=== PATIENT | male | born 1960 | race African-American/Black ===

== ENCOUNTER 2016-09-16 12:02 | Inpatient (IN) | payer MEDICARE, OTHER ==
[~2016-09-16] VITALS: Ht 180.3 cm; Wt 75.4 kg
[2016-09-16] MEDS ORDERED: IV NORMAL SALINE 1000ML BAG 1,000 ML IV SCH (12:17)
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
[2016-09-16] MEDS ORDERED: 0.9 % SODIUM CHLORIDE 10 ML DISP.SYRIN. IV PRN (12:30)
[2016-09-16 12:45] LABS: BASO # 0.1 x10^3/uL (0.0-0.2); BASO % 1 % (0-3); EOS % 1 % (0-3); HEMATOCRIT 23.1 % (39.0-53.0); HEMOGLOBIN 7.5 g/dL (13.0-17.5); LYMPH # 0.9 x10^3/uL (1.0-4.8); LYMPH % 8 % (24-48); MEAN CORPUSCULAR HEMOGLOBIN 26 pg (25-35); MEAN CORPUSCULAR HGB CONC 32 g/dL (31-37); MEAN CORPUSCULAR VOLUME 79 fL (79-100); MONO % 17 % (0-9); NEUT % 74 % (31-73); PLATELET COUNT 125 x10^3/uL (140-400); RED BLOOD COUNT 2.92 x10^6/uL (4.30-5.70); RED CELL DISTRIBUTION WIDTH 22.1 % (11.5-14.5); WHITE BLOOD COUNT 11.7 x10^3/uL (4.0-11.0)
[2016-09-16 13:00] LABS: CALCIUM 7.5 mg/dL (8.5-10.1); CREATININE 1.6 mg/dL (0.7-1.3); GFR 54.4
--- NOTE | 2016-09-16 13:00 | RAD ---
Indication generalized weakness for a week. Noncontrast images of the head were obtained. Note is made of a previous examination 07/31/2015. The calvarium appears unremarkable. The visualized paranasal sinuses appear normal. There is no subdural or epidural hematoma. There is some physiologic calcification of the basal ganglia. There is mild atrophy. No mass or midline shift is seen. No acute finding is apparent. IMPRESSION: Chronic changes. No acute finding seen PQRS Compliance Statement: One or more of the following individualized dose reduction techniques were utilized for this examination: 1. Automated exposure control 2. Adjustment of the mA and/or kV according to patient size 3. Use of iterative reconstruction technique
--- NOTE | 2016-09-16 13:03 | RAD ---
Indication weakness. Jaundice. A single view of the chest was obtained and is compared to a study 07/31/2015. The heart and pulmonary vessels appear normal. The lungs appear clear. There is no pleural fluid or pneumothorax. The level of inspiratory for is not quite as good as on the previous exam. A significant change compared to the prior study is not seen. IMPRESSION: No acute or focal process. No significant change
[2016-09-16 13:11] LABS: ALBUMIN 1.7 g/dL (3.4-5.0); MAGNESIUM 2.1 mg/dL (1.8-2.4)
[2016-09-16 13:13] LABS: % EOS 1 % (0-5); NUCLEATED RBC 49; PLT ESTIMATE ADEQUATE (ADEQUATE)
[2016-09-16 13:14] LABS: ANISOCYTOSIS PRESENT; CKMB MASS < 0.5 ng/mL (0.0-3.6); CREATINE KINASE 42 U/L (39-308); TARGET CELLS MANY
[2016-09-16 13:44] LABS: TOTAL PROTEIN 6.8 g/dL (6.4-8.2)
[2016-09-16 13:48] LABS: DIRECT BILIRUBIN 27.3 mg/dL (0.0-0.2); TOTAL BILIRUBIN 36.7 mg/dL (0.2-1.0)
--- NOTE | 2016-09-16 14:17 | EKG ---
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
[2016-09-16 14:41] LABS: BILIRUBIN,URINE LARGE (NEG); GLUCOSE,URINE NEGATIVE (NEG); PROTEIN,URINE NEGATIVE (NEG-TRACE)
[2016-09-16 15:28] LABS: BACTERIA,URINE FEW /HPF (0-FEW); SQUAMOUS EPITHELIAL CELL,UR MOD /LPF
[2016-09-16] MEDS ORDERED: ONDANSETRON PF 4 MG/2 ML VIAL. IV PRN ×2 (15:45→16:15)
[2016-09-16] MEDS ORDERED: hydrALAZINE 20 MG/ML VIAL. IVP PRN (16:15)
[2016-09-16] MEDS ORDERED: DOCUSATE SODIUM 100 MG CAPSULE. PO PRN (16:15)
[2016-09-16] MEDS ORDERED: ACETAMINOPHEN 325 MG TABLET. PO PRN (16:15)
[2016-09-16] MEDS ORDERED: MORPHINE SULFATE 2 MG/ML DISP.SYRIN. IV PRN (16:15)
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
[2016-09-16 16:32] LABS: BARBITURATES NEG (NEG); BENZODIAZEPINES NEG (NEG); CANNABINOIDS NEG (NEG); COCAINE NEG (NEG); METHADONE NEG (NEG); OPIATES NEG (NEG); PHENCYCLIDINE NEG (NEG)
[2016-09-16 16:37] LABS: INR 2.8 (0.8-1.1); PROTHROMBIN TIME PATIENT 27.8 SEC (11.7-14.0)
[2016-09-16] MEDS: IV NORMAL SALINE 1000ML BAG 1,000 ML IV SCH (16:47)
--- NOTE | 2016-09-16 16:56 | RAD ---
INDICATION: Elevated bilirubin COMPARISON: 07/31/2015 TECHNIQUE: Grayscale and color ultrasound images obtained through the abdomen. FINDINGS: Aorta/IVC: Poorly visualized Pancreas: Visualized portions unremarkable. Liver: Echogenic with large portions of the liver not visualized on this exam. Gallbladder: Removed Common Bile Duct: 6 mm Right Kidney: No hydronephrosis. Left Kidney: No hydronephrosis. Spleen: 15.8 cm Ascites is seen. IMPRESSION: The liver is echogenic which can be seen with fatty infiltration. Large portions of the liver is not evaluated on this exam secondary to poor beam penetration. Small amount of ascites and splenomegaly.
[2016-09-16 20:08] VITALS: BP 89/55
[2016-09-16] MEDS ORDERED: ENOXAPARIN 40 MG/0.4 ML SYRINGE. SQ SCH (21:00)
[2016-09-16 23:00] VITALS: BP 85/56
[2016-09-16 23:22] VITALS: BP 103/66
[2016-09-17] VITALS (7 sets, daily range): BP systolic 85–96; BP diastolic 52–64
[2016-09-17] MEDS: IV NORMAL SALINE 1000ML BAG 1,000 ML IV SCH ×2 (01:50→10:38)
--- NOTE | 2016-09-17 03:24 | ACF ---
Admission Forms Criteria LIVER DISEASE COMPLICATIONS Clinical Indications for Admission to Inpatient Care (Place 'X' for any and all applicable criteria): Admission is indicated for patient with ANY ONE of the following(1)(2)(3)(4): [ ]I. Inpatient admission required rather than observation care because of ANY ONE of the following: [ ]a) Hemodynamic instability that is severe or persistent [ ]b) Severe electrolyte abnormalities requiring inpatient care [ ]c) Respiratory compromise that is severe or persistent [ ]d) Coagulation abnormal that is severe or persistent [ ]e) Severe pain requiring acute inpatient management [ ]f) Renal insufficiency that is severe or worsening [ ]g) Metabolic abnormalities (e.g., vomiting, hypoglycemia, acidosis) that are severe or persistent [ ]h) Hypovolemia or hypervolemia that is severe or persistent [ ]i) Absent bowel sounds with complete ileus(2) [ ]j) Signs of intestinal obstruction or peritonitis[A] [ ]k) IV fluid to replace significant ongoing losses (>3 L/m2 per day) [ ]l) Continuous IV infusion of anticoagulation, platelet inhibitor, vasoactive, or antiarrhythmic medication [ ]m) Percutaneous or open drainage (e.g., abscess, biliary tract) procedures [ ]n) Parenteral nutrition regimen that must be implemented on inpatient basis [ ]o) Other condition treatment or monitoring requiring inpatient admission [ ]II. Infected hepatic hydrothorax (eg, empyema) [ ]III. Hepatorenal syndrome (eg, elevated. creatinine with adequate volume status and negative evaluation for other cause)(8) [ ]IV. Spontaneous bacterial peritonitis [ ]V. Suspected infected ascites as indicated by ANY ONE of the following: [ ]a) Temp >100 degrees F (37.8 C ) [ ]b) High WBC count [ ]c) Abdominal pain or tenderness not relieved by paracentesis [ ]. New-onset or worsening hepatic encephalopathy(7) [ ]VII. Suspected fulminant hepatic failure (e.g., acute coagulopathy with hepatic encephalopathy or acute elevation of hepatic transaminases to more than 15 times baseline)(4) [X]VIII. Acute hepatitis (e.g., ALT and AST at least 3 times baseline) with coagulopathy or severe jaundice as indicated by ANY ONE of the following(9)(10): [X]a) Bilirubin >20 mg/dL (342 moles/L)(11) [ ]b) Acute elevation of PT to >50% above normal or INR >1.5 [ ] IX. Treatment of injury from hepatotoxin (e.g., acetaminophen) that requires inpatient monitoring [ ] X. Acute fatty liver of Extended stay beyond goal length of stay may be needed for(3)(7): [ ]a) Hepatorenal syndrome [ ]b) Severe or persistent hepatic encephalopathy [ ]c) Renal failure due to other causes associated with cirrhosis (e.g., hypovolemia) [ ]d) Severe or persistent coagulation abnormalities [ ]e) Refractory ascites, volume, or electrolyte abnormality [ ]f) Severe or persistent gastroesophageal bleeding [ ]g) Severe infectious or hepatotoxin-induced hepatitis (eg, acetaminophen) [ ]h) Hemodynamic instability that is severe or persistent The original [facility] content created by [facility] [employer] has been revised. The portions of the content which have been revised are identified through the use of italic text or in bold, and [facility] has neither reviewed nor approved the modified material. All other unmodified content is copyright [facility] [employer]. Please see references footnoted in the original [facility] edition 2016 Admission Criteria Met?: Yes SARAH PRICE Sep 17, 2016 03:24
[2016-09-17 06:05] LABS: BASO # 0.1 x10^3/uL (0.0-0.2); BASO % 1 % (0-3); EOS % 1 % (0-3); LYMPH # 0.5 x10^3/uL (1.0-4.8); LYMPH % 6 % (24-48); MEAN CORPUSCULAR HEMOGLOBIN 26 pg (25-35); MEAN CORPUSCULAR HGB CONC 33 g/dL (31-37); MEAN CORPUSCULAR VOLUME 79 fL (79-100); MONO % 18 % (0-9); NEUT % 74 % (31-73); PLATELET COUNT 100 x10^3/uL (140-400); RED BLOOD COUNT 2.65 x10^6/uL (4.30-5.70); RED CELL DISTRIBUTION WIDTH 22.1 % (11.5-14.5)
[2016-09-17 06:14] LABS: HEMATOCRIT 20.9 % (39.0-53.0)
[2016-09-17 06:22] LABS: CREATININE 1.6 mg/dL (0.7-1.3); GFR 54.4; POTASSIUM 3.1 mmol/L (3.5-5.1)
--- NOTE | 2016-09-17 09:17 | PDOC2 ---
GI CONSULT Reason For Consult: Elevated bilirubin HPI: HPI: 55 y/o male previously evaluated by Dr. Brice. H/o heavy alcohol use, about 1 pint of gin daily. In 07/2015, Hepatitis panel was negative, iron was normal, ceruloplasmin was low, and hemochromatosis was negative. He presents now w/ similar symptoms including weakness, tingling in his legs, and falling. Again reports occasional n/v and loose stools. He says his mom might have seen red blood in his stool once. Says eating okay but might have lost some weight. Denies abd pain or bloating, also dysphagia. Labs significant for bili 36.7, direct 27.3, AST 125, ALT 36, Alk Phos 126, INR 2.8, Hgb 7 (from 7.5), plt 100, Cr 1.6, Na 129, normal ammonia, elevated lactic acid (now normal). Abd US again demonstrates fatty liver and splenomegaly, small amount of ascites also noted. PMH: PMH: alcoholism, cholecystectomy, bipolar disorder, neuropathy FH: Family History: No pertinent hx Social History: ALCOHOL: heavy (1 pint of gin daily) Drugs: None ROS: GEN: +weak HEENT: Denies blurred vision, sore throat CV: Denies chest pain RESP: Denies shortness of air, cough GI: Per HPI : Denies hematuria, dysuria ENDO: +weight loss NEURO: +feet/leg tingling +dizziness MSK: +weak +falls SKIN: Denies pruritus Vitals: Vitals: Vital Signs Date Time Temp Pulse Resp B/P (MAP) Pulse Ox O2 Delivery O2 Flow Rate FiO2 09/17/16 06:24 97 96/64 (75) 09/17/16 03:03 98.1 20 100 Room Air 98.1 Labs: Labs: Laboratory Tests Test 09/16/16 12:30 09/16/16 14:27 09/17/16 05:40 White Blood Count 11.7 x10^3/uL (4.0-11.0) 9.0 x10^3/uL (4.0-11.0) Red Blood Count 2.92 x10^6/uL (4.30-5.70) 2.65 x10^6/uL (4.30-5.70) Hemoglobin 7.5 g/dL (13.0-17.5) 7.0 g/dL (13.0-17.5) Hematocrit 23.1 % (39.0-53.0) 20.9 % (39.0-53.0) Mean Corpuscular Volume 79 fL (79-100) 79 fL (79-100) Mean Corpuscular Hemoglobin 26 pg (25-35) 26 pg (25-35) Mean Corpuscular Hemoglobin Concent 32 g/dL (31-37) 33 g/dL (31-37) Red Cell Distribution Width 22.1 % (11.5-14.5) 22.1 % (11.5-14.5) Platelet Count 125 x10^3/uL (140-400) 100 x10^3/uL (140-400) Neutrophils (%) (Auto) 74 % (31-73) 74 % (31-73) Lymphocytes (%) (Auto) 8 % (24-48) 6 % (24-48) Monocytes (%) (Auto) 17 % (0-9) 18 % (0-9) Eosinophils (%) (Auto) 1 % (0-3) 1 % (0-3) Basophils (%) (Auto) 1 % (0-3) 1 % (0-3) Neutrophils # (Auto) 8.6 x10^3uL (1.8-7.7) 6.7 x10^3uL (1.8-7.7) Lymphocytes # (Auto) 0.9 x10^3/uL (1.0-4.8) 0.5 x10^3/uL (1.0-4.8) Monocytes # (Auto) 2.0 x10^3/uL (0.0-1.1) 1.6 x10^3/uL (0.0-1.1) Eosinophils # (Auto) 0.1 x10^3/uL (0.0-0.7) 0.1 x10^3/uL (0.0-0.7) Basophils # (Auto) 0.1 x10^3/uL (0.0-0.2) 0.1 x10^3/uL (0.0-0.2) Segmented Neutrophils % 72 % (35-66) Band Neutrophils % 3 % (0-9) Lymphocytes % 12 % (24-48) Monocytes % 12 % (0-10) Eosinophils % 1 % (0-5) Nucleated Red Blood Cells 49 Platelet Estimate Adequate (ADEQUATE) Anisocytosis Present Macrocytosis Present Target Cells Many Prothrombin Time 27.8 SEC (11.7-14.0) Prothromb Time International Ratio 2.8 (0.8-1.1) Sodium Level 129 mmol/L (136-145) 133 mmol/L (136-145) Potassium Level 4.0 mmol/L (3.5-5.1) 3.1 mmol/L (3.5-5.1) Chloride Level 89 mmol/L (98-107) 95 mmol/L (98-107) Carbon Dioxide Level 30 mmol/L (21-32) 26 mmol/L (21-32) Anion Gap 10 (6-14) 12 (6-14) Blood Urea Nitrogen 21 mg/dL (8-26) 25 mg/dL (8-26) Creatinine 1.6 mg/dL (0.7-1.3) 1.6 mg/dL (0.7-1.3) Estimated GFR (Cockcroft-Gault) 54.4 54.4 Glucose Level 87 mg/dL (70-99) 78 mg/dL (70-99) Lactic Acid Level 2.5 mmol/L (0.4-2.0) 1.9 mmol/L (0.4-2.0) Calcium Level 7.5 mg/dL (8.5-10.1) 7.0 mg/dL (8.5-10.1) Magnesium Level 2.1 mg/dL (1.8-2.4) Total Bilirubin 36.7 mg/dL (0.2-1.0) Direct Bilirubin 27.3 mg/dL (0.0-0.2) Aspartate Amino Transf (AST/SGOT) 125 U/L (15-37) Alanine Aminotransferase (ALT/SGPT) 36 U/L (16-63) Alkaline Phosphatase 126 U/L (46-116) Ammonia 21 mcmol/L (11-34) Creatine Kinase 42 U/L (39-308) Creatine Kinase MB (Mass) < 0.5 ng/mL (0.0-3.6) Creatine Kinase MB Relative Index % (0-4) Troponin I Quantitative < 0.017 ng/mL (0.000-0.055) [id number]-Type Natriuretic Peptide 1592 pg/mL (0-124) Total Protein 6.8 g/dL (6.4-8.2) Albumin 1.7 g/dL (3.4-5.0) Lipase 140 U/L (73-393) Thyroid Stimulating Hormone (TSH) 0.936 uIU/mL (0.358-3.74) Ethyl Alcohol Level < 10 mg/dL (0-10) Urine Collection Type U cath Urine Color Izzy Urine Clarity Cloudy Urine pH 6.0 Urine Specific [place] 1.015 Urine Protein Negative mg/dL (NEG-TRACE) Urine Glucose (UA) Negative mg/dL (NEG) Urine Ketones (Stick) Negative mg/dL (NEG) Urine Blood Negative (NEG) Urine Nitrite (NEG) Urine Bilirubin Large (NEG) Urine Urobilinogen Dipstick 1.0 mg/dL (0.2 mg/dL) Urine Leukocyte Esterase (NEG) Urine RBC 11-20 /HPF (0-2) Urine WBC 1-4 /HPF (0-4) Urine Squamous Epithelial Cells Mod /LPF Urine Bacteria Few /HPF (0-FEW) Urine Mucus Slight /LPF Urine Opiates Screen Neg (NEG) Urine Methadone Screen Neg (NEG) Urine Barbiturates Neg (NEG) Urine Phencyclidine Screen Neg (NEG) Urine Amphetamine/Methamphetamine Neg (NEG) Urine Benzodiazepines Screen Neg (NEG) Urine Cocaine Screen Neg (NEG) Urine Cannabinoids Screen Neg (NEG) Urine Ethyl Alcohol Neg (NEG) Allergies: Coded Allergies: No Known Drug Allergies (Unverified , 07/31/15) Medications: Current Medications Medications (Trade) Dose Ordered Sig/Elizabeth Route PRN Reason Start Time Stop Time Status Last Admin Dose Admin Sodium Chloride 1,000 ml @ 1,000 mls/hr Q1H IV 09/16/16 12:17 09/16/16 13:16 DC 09/16/16 12:59 Sodium Chloride (Normal Saline Flush) 10 ml QSHIFT PRN IV AFTER MEDS AND BLOOD DRAWS 09/16/16 12:30 09/16/16 13:00 Sodium Chloride 1,000 ml @ 120 mls/hr Q8H20M IV 09/16/16 15:40 09/17/16 15:39 09/17/16 01:50 Imaging: Imaging: Head CT IMPRESSION: Chronic changes. No acute finding seen. CXR IMPRESSION: No acute or focal process. No significant change. Abd US IMPRESSION: The liver is echogenic which can be seen with fatty infiltration. Large portions of the liver is not evaluated on this exam secondary to poor beam penetration. Small amount of ascites and splenomegaly. PE: GEN: NAD HEENT: +sclera icteric LUNGS: diminished anteriorly HEART: tachycardic ABD: BS+, some distention/ascites, non-tender EXTREMITY: No edema SKIN: +jaundice NEURO/PSYCH: A & O 3, mumbles A/P: A/P: Weakness, falls, LE neuropathy Hyperbilirubinemia -in setting of alcoholism -previous workup: Hepatitis panel negative, iron normal, ceruloplasmin low, hemochromatosis negative -US: fatty liver, splenomegaly, small ascites -s/p cholecystectomy Alcoholism Normocytic anemia, thrombocytopenia, coagulopathy -- Likely related to alcohol, but will recheck ceruloplasmin and also serum copper. [place] HORVATH Sep 17, 2016 09:17
[2016-09-17] MEDS: traMADol 50 MG TABLET PO PRN (10:41)
--- NOTE | 2016-09-17 12:52 | PDOC ---
PROGRESS NOTES Chief Complaint Chief Complaint Generalized weakness ASSESSMENT AND PLAN: 1. FTT: 2/2 EtOH abuse. OT/PT for rehab potential (doubt..) 2. EtOH abuse: last drink 4 days ago. watch for W/D sx. banana bag 4. EtOH cirrhosis: appreciate GI service input; previously evaluated for same 1 year ago. 5. Hypotension: chronic stable. trial of florinef. decrease IVF, will third- space only 6. Thrombocytopenia: 2/2 EtOH 7. Anemia: microcytic; previous iron labs c/w severe inflammation; cirrhosis 8. Leukocytosis: reactive, improving 9. Hypoalbuminemia: severe. 2/2 liver dz and malnutrition. supplements 10. CKD3: creat at baseline 11. Hyponatremia: chronic (at least since 07/2015). currently at baseline. 12. ascites: massive distension. VIR to tap in AM 13. Bipolar affective disorder (BAD): continue home meds 14. Tobaccoism: cessation counseled 15. Prophylaxis: mechanical only given bleeding risk Condition: guarded Prognosis: poor History of Present Illness History of Present Illness feels "soso". appetite minimal, very weak Vitals Vitals Vital Signs Date Time Temp Pulse Resp B/P (MAP) Pulse Ox O2 Delivery O2 Flow Rate FiO2 09/17/16 11:41 18 Room Air 09/17/16 10:30 97.5 87 90/57 (68) 95 97.5 Physical Exam General: Alert, Cooperative, No acute distress Heart: Regular rate Lungs: Clear Abdomen: Normal bowel sounds, Other (massive distension) Labs LABS Laboratory Tests Test 09/16/16 14:27 09/17/16 05:40 Urine Collection Type U cath Urine Color Izzy Urine Clarity Cloudy Urine pH 6.0 Urine Specific [place] 1.015 Urine Protein Negative mg/dL (NEG-TRACE) Urine Glucose (UA) Negative mg/dL (NEG) Urine Ketones (Stick) Negative mg/dL (NEG) Urine Blood Negative (NEG) Urine Nitrite (NEG) Urine Bilirubin Large (NEG) Urine Urobilinogen Dipstick 1.0 mg/dL (0.2 mg/dL) Urine Leukocyte Esterase (NEG) Urine RBC 11-20 /HPF (0-2) Urine WBC 1-4 /HPF (0-4) Urine Squamous Epithelial Cells Mod /LPF Urine Bacteria Few /HPF (0-FEW) Urine Mucus Slight /LPF Urine Opiates Screen Neg (NEG) Urine Methadone Screen Neg (NEG) Urine Barbiturates Neg (NEG) Urine Phencyclidine Screen Neg (NEG) Urine Amphetamine/Methamphetamine Neg (NEG) Urine Benzodiazepines Screen Neg (NEG) Urine Cocaine Screen Neg (NEG) Urine Cannabinoids Screen Neg (NEG) Urine Ethyl Alcohol Neg (NEG) White Blood Count 9.0 x10^3/uL (4.0-11.0) Red Blood Count 2.65 x10^6/uL (4.30-5.70) Hemoglobin 7.0 g/dL (13.0-17.5) Hematocrit 20.9 % (39.0-53.0) Mean Corpuscular Volume 79 fL (79-100) Mean Corpuscular Hemoglobin 26 pg (25-35) Mean Corpuscular Hemoglobin Concent 33 g/dL (31-37) Red Cell Distribution Width 22.1 % (11.5-14.5) Platelet Count 100 x10^3/uL (140-400) Neutrophils (%) (Auto) 74 % (31-73) Lymphocytes (%) (Auto) 6 % (24-48) Monocytes (%) (Auto) 18 % (0-9) Eosinophils (%) (Auto) 1 % (0-3) Basophils (%) (Auto) 1 % (0-3) Neutrophils # (Auto) 6.7 x10^3uL (1.8-7.7) Lymphocytes # (Auto) 0.5 x10^3/uL (1.0-4.8) Monocytes # (Auto) 1.6 x10^3/uL (0.0-1.1) Eosinophils # (Auto) 0.1 x10^3/uL (0.0-0.7) Basophils # (Auto) 0.1 x10^3/uL (0.0-0.2) Sodium Level 133 mmol/L (136-145) Potassium Level 3.1 mmol/L (3.5-5.1) Chloride Level 95 mmol/L (98-107) Carbon Dioxide Level 26 mmol/L (21-32) Anion Gap 12 (6-14) Blood Urea Nitrogen 25 mg/dL (8-26) Creatinine 1.6 mg/dL (0.7-1.3) Estimated GFR (Cockcroft-Gault) 54.4 Glucose Level 78 mg/dL (70-99) Lactic Acid Level 1.9 mmol/L (0.4-2.0) Calcium Level 7.0 mg/dL (8.5-10.1) JUANIS RUIZ MD Sep 17, 2016 12:52
[2016-09-17] MEDS: MULTIVIT INFUSN,ADULT 4,VIT K 10 ML, THIAMINE 100 MG, FOLIC ACID 1 MG in IV NORMAL SALI... IV SCH (14:04)
[2016-09-17] MEDS: PHYTONADIONE (VIT K1) 5 MG TABLET PO SCH (18:12)
[2016-09-17] MEDS: FLUDROCORTISONE 0.1 MG TABLET PO SCH (20:49)
[2016-09-18] VITALS (14 sets, daily range): BP systolic 73–93; BP diastolic 46–64
[2016-09-18 05:15] LABS: BASO # 0.1 x10^3/uL (0.0-0.2); BASO % 1 % (0-3); EOS % 1 % (0-3); LYMPH # 0.6 x10^3/uL (1.0-4.8); LYMPH % 7 % (24-48); MEAN CORPUSCULAR HEMOGLOBIN 27 pg (25-35); MEAN CORPUSCULAR HGB CONC 34 g/dL (31-37); MEAN CORPUSCULAR VOLUME 78 fL (79-100); MONO % 19 % (0-9); NEUT % 73 % (31-73); PLATELET COUNT 95 x10^3/uL (140-400); RED BLOOD COUNT 2.27 x10^6/uL (4.30-5.70); WHITE BLOOD COUNT 8.9 x10^3/uL (4.0-11.0)
[2016-09-18 05:18] LABS: HEMATOCRIT 17.6 % (39.0-53.0)
[2016-09-18 05:33] LABS: INR 3.3 (0.8-1.1); PROTHROMBIN TIME PATIENT 31.8 SEC (11.7-14.0)
[2016-09-18 05:58] LABS: ALBUMIN 1.3 g/dL (3.4-5.0)
[2016-09-18 06:18] LABS: ALBUMIN/GLOBULIN RATIO 0.3 (1.0-1.7); TOTAL PROTEIN 5.5 g/dL (6.4-8.2)
[2016-09-18 06:40] LABS: TOTAL BILIRUBIN 33.2 mg/dL (0.2-1.0)
[2016-09-18 06:42] LABS: POTASSIUM 2.8 mmol/L (3.5-5.1)
[2016-09-18] MEDS ORDERED: POTASSIUM CHLORIDE 20 MEQ TABLET.ER. PO ONE ×2 (07:00→12:00)
[2016-09-18] MEDS: FLUDROCORTISONE 0.1 MG TABLET PO SCH ×2 (08:34→21:00)
[2016-09-18] MEDS: PHYTONADIONE (VIT K1) 5 MG TABLET PO SCH (08:34)
--- NOTE | 2016-09-18 11:48 | PDOC ---
Subjective: Subjective: Not much history from pt or friend/family. "Doing alright." Objective: Objective: D/w RN - not eating/drinking, paracentesis ordered by primary yesterday, not to be done until INR better (rescheduled for 09/21). Some hypotension, note orders for vit K PO. Transfusing. Vital Signs: Vital Signs Date Time Temp Pulse Resp B/P (MAP) Pulse Ox O2 Delivery O2 Flow Rate FiO2 09/18/16 10:45 98.4 90 18 74/50 98.4 09/18/16 08:00 Room Air 09/18/16 07:45 96 Labs: Laboratory Tests Test 09/18/16 04:55 White Blood Count 8.9 x10^3/uL Red Blood Count 2.27 x10^6/uL Hemoglobin 6.0 g/dL Hematocrit 17.6 % Mean Corpuscular Volume 78 fL Mean Corpuscular Hemoglobin 27 pg Mean Corpuscular Hemoglobin Concent 34 g/dL Red Cell Distribution Width 22.0 % Platelet Count 95 x10^3/uL Neutrophils (%) (Auto) 73 % Lymphocytes (%) (Auto) 7 % Monocytes (%) (Auto) 19 % Eosinophils (%) (Auto) 1 % Basophils (%) (Auto) 1 % Neutrophils # (Auto) 6.5 x10^3uL Lymphocytes # (Auto) 0.6 x10^3/uL Monocytes # (Auto) 1.7 x10^3/uL Eosinophils # (Auto) 0.1 x10^3/uL Basophils # (Auto) 0.1 x10^3/uL Prothrombin Time 31.8 SEC Prothromb Time International Ratio 3.3 Sodium Level 128 mmol/L Potassium Level 2.8 mmol/L Chloride Level 94 mmol/L Carbon Dioxide Level 23 mmol/L Anion Gap 11 Blood Urea Nitrogen 27 mg/dL Creatinine 2.0 mg/dL Estimated GFR (Cockcroft-Gault) 42.0 BUN/Creatinine Ratio 14 Glucose Level 78 mg/dL Calcium Level 7.0 mg/dL Total Bilirubin 33.2 mg/dL Aspartate Amino Transf (AST/SGOT) 99 U/L Alanine Aminotransferase (ALT/SGPT) 27 U/L Alkaline Phosphatase 111 U/L Total Protein 5.5 g/dL Albumin 1.3 g/dL Albumin/Globulin Ratio 0.3 PE: GEN: NAD, has a box of fried chicken and biscuits in front of him HEENT: +sclera icteric ABD: some distention SKIN: +jaundice NEURO/PSYCH: awake/alert, doesn't say much A/P: Hyperbilirubinemia, alcoholism -previous admission: Hepatitis panel negative, iron normal, ceruloplasmin low, hemochromatosis negative -this admission: copper and ceruloplasmin pending -US: fatty liver, splenomegaly, small ascites, (s/p cholecystectomy) Anemia, thrombocytopenia, coagulopathy - worse Hypokalemia, hyponatremia, hypoalbuminemia, CKD -- ?SQ vit K Will review w/ Dr. Brice. Patient seen/examined. Did not respond to verbal or tactile stimuli. NOT hyperreflexic, so unclear PSE. Wernicke's? Ceruloplasmin again low; atypical as usually elevated in other liver diseases. Copper pending. Will get urinary copper. More thiamine? Given marked cholestasis, po vit. K may not work. Try SQ. [place] HORVATH Sep 18, 2016 11:48 SUDHAKAR BRICE MD Sep 18, 2016 15:33
--- NOTE | 2016-09-18 12:28 | PDOC ---
PROGRESS NOTES Chief Complaint Chief Complaint Generalized weakness, debility, hepatic failure ASSESSMENT AND PLAN: 1. FTT: 2/2 EtOH abuse. 2. EtOH abuse: last drink 4 days ago. watch for W/D sx. banana bag 4. EtOH cirrhosis: appreciate GI service input; previously evaluated for same 1 year ago. 5. Hypotension: chronic stable. trial of florinef. decrease IVF, will third- space only 6. Thrombocytopenia: 2/2 EtOH 7. Anemia: microcytic; previous iron labs c/w severe inflammation; cirrhosis 8. Leukocytosis: reactive, improving 9. Hypoalbuminemia: severe. 2/2 liver dz and malnutrition. supplements 10. CKD3: creat at baseline 11. Hyponatremia: chronic (at least since 07/2015). currently at baseline. 12. ascites: massive distension. VIR to tap in AM 13. Bipolar affective disorder (BAD): continue home meds 14. Tobaccoism: cessation counseled 15. Prophylaxis: mechanical only given bleeding risk Condition: guarded Prognosis: poor History of Present Illness History of Present Illness appetite minimal, very weak no sign of withdrawl, boo had drinks yesterday AM I talked about 6 month mortality. then calculated his MELD score at 40. 3 month mortality is 71% will consider hospice, he thinks he can stop drinking, reports drinking beer and liquor daily, "all day" for the past 30 years. His friend "mother of his child" reports she left him for this behavior 30 years ago, and he has drank more than heavily for that time Vitals Vitals Vital Signs Date Time Temp Pulse Resp B/P (MAP) Pulse Ox O2 Delivery O2 Flow Rate FiO2 09/18/16 11:45 98.4 87 18 81/55 98.4 09/18/16 08:00 Room Air 09/18/16 07:45 96 Physical Exam Physical Exam no nystagmus, no asterixis marked scleral icterus, jaundice of under tongue General: Alert, Oriented X3, Cooperative, No acute distress Heart: Regular rate Lungs: Clear Abdomen: Normal bowel sounds, Other (massive distension) Extremities: No clubbing Skin: No rashes Labs LABS Laboratory Tests Test 09/18/16 04:55 White Blood Count 8.9 x10^3/uL (4.0-11.0) Red Blood Count 2.27 x10^6/uL (4.30-5.70) Hemoglobin 6.0 g/dL (13.0-17.5) Hematocrit 17.6 % (39.0-53.0) Mean Corpuscular Volume 78 fL (79-100) Mean Corpuscular Hemoglobin 27 pg (25-35) Mean Corpuscular Hemoglobin Concent 34 g/dL (31-37) Red Cell Distribution Width 22.0 % (11.5-14.5) Platelet Count 95 x10^3/uL (140-400) Neutrophils (%) (Auto) 73 % (31-73) Lymphocytes (%) (Auto) 7 % (24-48) Monocytes (%) (Auto) 19 % (0-9) Eosinophils (%) (Auto) 1 % (0-3) Basophils (%) (Auto) 1 % (0-3) Neutrophils # (Auto) 6.5 x10^3uL (1.8-7.7) Lymphocytes # (Auto) 0.6 x10^3/uL (1.0-4.8) Monocytes # (Auto) 1.7 x10^3/uL (0.0-1.1) Eosinophils # (Auto) 0.1 x10^3/uL (0.0-0.7) Basophils # (Auto) 0.1 x10^3/uL (0.0-0.2) Prothrombin Time 31.8 SEC (11.7-14.0) Prothromb Time International Ratio 3.3 (0.8-1.1) Sodium Level 128 mmol/L (136-145) Potassium Level 2.8 mmol/L (3.5-5.1) Chloride Level 94 mmol/L (98-107) Carbon Dioxide Level 23 mmol/L (21-32) Anion Gap 11 (6-14) Blood Urea Nitrogen 27 mg/dL (8-26) Creatinine 2.0 mg/dL (0.7-1.3) Estimated GFR (Cockcroft-Gault) 42.0 BUN/Creatinine Ratio 14 (6-20) Glucose Level 78 mg/dL (70-99) Calcium Level 7.0 mg/dL (8.5-10.1) Total Bilirubin 33.2 mg/dL (0.2-1.0) Aspartate Amino Transf (AST/SGOT) 99 U/L (15-37) Alanine Aminotransferase (ALT/SGPT) 27 U/L (16-63) Alkaline Phosphatase 111 U/L (46-116) Total Protein 5.5 g/dL (6.4-8.2) Albumin 1.3 g/dL (3.4-5.0) Albumin/Globulin Ratio 0.3 (1.0-1.7) Review of Systems Review of Systems poor appetite, weak hair is brittle, he appears disheveled, a friend is trying to clean him up and brush his hair Assessment and Plan Assessmemt and Plan Problems Medical Problems: (1) Anemia Status: Acute (2) Dehydration Status: Acute (3) Hyperbilirubinemia Status: Acute (4) Liver failure Status: Acute (5) Neuropathy Status: Acute Problems: Comment Review of Relevant I have reviewed the following items luigi (where applicable) has been applied. Labs Laboratory Tests Test 09/16/16 12:30 09/16/16 14:27 09/17/16 05:40 09/18/16 04:55 White Blood Count 11.7 x10^3/uL (4.0-11.0) 9.0 x10^3/uL (4.0-11.0) 8.9 x10^3/uL (4.0-11.0) Red Blood Count 2.92 x10^6/uL (4.30-5.70) 2.65 x10^6/uL (4.30-5.70) 2.27 x10^6/uL (4.30-5.70) Hemoglobin 7.5 g/dL (13.0-17.5) 7.0 g/dL (13.0-17.5) 6.0 g/dL (13.0-17.5) Hematocrit 23.1 % (39.0-53.0) 20.9 % (39.0-53.0) 17.6 % (39.0-53.0) Mean Corpuscular Volume 79 fL (79-100) 79 fL (79-100) 78 fL (79-100) Mean Corpuscular Hemoglobin 26 pg (25-35) 26 pg (25-35) 27 pg (25-35) Mean Corpuscular Hemoglobin Concent 32 g/dL (31-37) 33 g/dL (31-37) 34 g/dL (31-37) Red Cell Distribution Width 22.1 % (11.5-14.5) 22.1 % (11.5-14.5) 22.0 % (11.5-14.5) Platelet Count 125 x10^3/uL (140-400) 100 x10^3/uL (140-400) 95 x10^3/uL (140-400) Neutrophils (%) (Auto) 74 % (31-73) 74 % (31-73) 73 % (31-73) Lymphocytes (%) (Auto) 8 % (24-48) 6 % (24-48) 7 % (24-48) Monocytes (%) (Auto) 17 % (0-9) 18 % (0-9) 19 % (0-9) Eosinophils (%) (Auto) 1 % (0-3) 1 % (0-3) 1 % (0-3) Basophils (%) (Auto) 1 % (0-3) 1 % (0-3) 1 % (0-3) Neutrophils # (Auto) 8.6 x10^3uL (1.8-7.7) 6.7 x10^3uL (1.8-7.7) 6.5 x10^3uL (1.8-7.7) Lymphocytes # (Auto) 0.9 x10^3/uL (1.0-4.8) 0.5 x10^3/uL (1.0-4.8) 0.6 x10^3/uL (1.0-4.8) Monocytes # (Auto) 2.0 x10^3/uL (0.0-1.1) 1.6 x10^3/uL (0.0-1.1) 1.7 x10^3/uL (0.0-1.1) Eosinophils # (Auto) 0.1 x10^3/uL (0.0-0.7) 0.1 x10^3/uL (0.0-0.7) 0.1 x10^3/uL (0.0-0.7) Basophils # (Auto) 0.1 x10^3/uL (0.0-0.2) 0.1 x10^3/uL (0.0-0.2) 0.1 x10^3/uL (0.0-0.2) Segmented Neutrophils % 72 % (35-66) Band Neutrophils % 3 % (0-9) Lymphocytes % 12 % (24-48) Monocytes % 12 % (0-10) Eosinophils % 1 % (0-5) Nucleated Red Blood Cells 49 Platelet Estimate Adequate (ADEQUATE) Anisocytosis Present Macrocytosis Present Target Cells Many Prothrombin Time 27.8 SEC (11.7-14.0) 31.8 SEC (11.7-14.0) Prothromb Time International Ratio 2.8 (0.8-1.1) 3.3 (0.8-1.1) Sodium Level 129 mmol/L (136-145) 133 mmol/L (136-145) 128 mmol/L (136-145) Potassium Level 4.0 mmol/L (3.5-5.1) 3.1 mmol/L (3.5-5.1) 2.8 mmol/L (3.5-5.1) Chloride Level 89 mmol/L (98-107) 95 mmol/L (98-107) 94 mmol/L (98-107) Carbon Dioxide Level 30 mmol/L (21-32) 26 mmol/L (21-32) 23 mmol/L (21-32) Anion Gap 10 (6-14) 12 (6-14) 11 (6-14) Blood Urea Nitrogen 21 mg/dL (8-26) 25 mg/dL (8-26) 27 mg/dL (8-26) Creatinine 1.6 mg/dL (0.7-1.3) 1.6 mg/dL (0.7-1.3) 2.0 mg/dL (0.7-1.3) Estimated GFR (Cockcroft-Gault) 54.4 54.4 42.0 Glucose Level 87 mg/dL (70-99) 78 mg/dL (70-99) 78 mg/dL (70-99) Lactic Acid Level 2.5 mmol/L (0.4-2.0) 1.9 mmol/L (0.4-2.0) Calcium Level 7.5 mg/dL (8.5-10.1) 7.0 mg/dL (8.5-10.1) 7.0 mg/dL (8.5-10.1) Magnesium Level 2.1 mg/dL (1.8-2.4) Total Bilirubin 36.7 mg/dL (0.2-1.0) 33.2 mg/dL (0.2-1.0) Direct Bilirubin 27.3 mg/dL (0.0-0.2) Aspartate Amino Transf (AST/SGOT) 125 U/L (15-37) 99 U/L (15-37) Alanine Aminotransferase (ALT/SGPT) 36 U/L (16-63) 27 U/L (16-63) Alkaline Phosphatase 126 U/L (46-116) 111 U/L (46-116) Ammonia 21 mcmol/L (11-34) Creatine Kinase 42 U/L (39-308) Creatine Kinase MB (Mass) < 0.5 ng/mL (0.0-3.6) Creatine Kinase MB Relative Index % (0-4) Troponin I Quantitative < 0.017 ng/mL (0.000-0.055) TL-Qbq-U-Type Natriuretic Peptide 1592 pg/mL (0-124) Total Protein 6.8 g/dL (6.4-8.2) 5.5 g/dL (6.4-8.2) Albumin 1.7 g/dL (3.4-5.0) 1.3 g/dL (3.4-5.0) Lipase 140 U/L (73-393) Thyroid Stimulating Hormone (TSH) 0.936 uIU/mL (0.358-3.74) Ethyl Alcohol Level < 10 mg/dL (0-10) Urine Collection Type U cath Urine Color Izzy Urine Clarity Cloudy Urine pH 6.0 Urine Specific Granite 1.015 Urine Protein Negative mg/dL (NEG-TRACE) Urine Glucose (UA) Negative mg/dL (NEG) Urine Ketones (Stick) Negative mg/dL (NEG) Urine Blood Negative (NEG) Urine Nitrite (NEG) Urine Bilirubin Large (NEG) Urine Urobilinogen Dipstick 1.0 mg/dL (0.2 mg/dL) Urine Leukocyte Esterase (NEG) Urine RBC 11-20 /HPF (0-2) Urine WBC 1-4 /HPF (0-4) Urine Squamous Epithelial Cells Mod /LPF Urine Bacteria Few /HPF (0-FEW) Urine Mucus Slight /LPF Urine Opiates Screen Neg (NEG) Urine Methadone Screen Neg (NEG) Urine Barbiturates Neg (NEG) Urine Phencyclidine Screen Neg (NEG) Urine Amphetamine/Methamphetamine Neg (NEG) Urine Benzodiazepines Screen Neg (NEG) Urine Cocaine Screen Neg (NEG) Urine Cannabinoids Screen Neg (NEG) Urine Ethyl Alcohol Neg (NEG) BUN/Creatinine Ratio 14 (6-20) Albumin/Globulin Ratio 0.3 (1.0-1.7) Laboratory Tests Test 09/18/16 04:55 White Blood Count 8.9 x10^3/uL (4.0-11.0) Red Blood Count 2.27 x10^6/uL (4.30-5.70) Hemoglobin 6.0 g/dL (13.0-17.5) Hematocrit 17.6 % (39.0-53.0) Mean Corpuscular Volume 78 fL (79-100) Mean Corpuscular Hemoglobin 27 pg (25-35) Mean Corpuscular Hemoglobin Concent 34 g/dL (31-37) Red Cell Distribution Width 22.0 % (11.5-14.5) Platelet Count 95 x10^3/uL (140-400) Neutrophils (%) (Auto) 73 % (31-73) Lymphocytes (%) (Auto) 7 % (24-48) Monocytes (%) (Auto) 19 % (0-9) Eosinophils (%) (Auto) 1 % (0-3) Basophils (%) (Auto) 1 % (0-3) Neutrophils # (Auto) 6.5 x10^3uL (1.8-7.7) Lymphocytes # (Auto) 0.6 x10^3/uL (1.0-4.8) Monocytes # (Auto) 1.7 x10^3/uL (0.0-1.1) Eosinophils # (Auto) 0.1 x10^3/uL (0.0-0.7) Basophils # (Auto) 0.1 x10^3/uL (0.0-0.2) Prothrombin Time 31.8 SEC (11.7-14.0) Prothromb Time International Ratio 3.3 (0.8-1.1) Sodium Level 128 mmol/L (136-145) Potassium Level 2.8 mmol/L (3.5-5.1) Chloride Level 94 mmol/L (98-107) Carbon Dioxide Level 23 mmol/L (21-32) Anion Gap 11 (6-14) Blood Urea Nitrogen 27 mg/dL (8-26) Creatinine 2.0 mg/dL (0.7-1.3) Estimated GFR (Cockcroft-Gault) 42.0 BUN/Creatinine Ratio 14 (6-20) Glucose Level 78 mg/dL (70-99) Calcium Level 7.0 mg/dL (8.5-10.1) Total Bilirubin 33.2 mg/dL (0.2-1.0) Aspartate Amino Transf (AST/SGOT) 99 U/L (15-37) Alanine Aminotransferase (ALT/SGPT) 27 U/L (16-63) Alkaline Phosphatase 111 U/L (46-116) Total Protein 5.5 g/dL (6.4-8.2) Albumin 1.3 g/dL (3.4-5.0) Albumin/Globulin Ratio 0.3 (1.0-1.7) Microbiology 09/16/16 Blood Culture - Preliminary, Resulted NO GROWTH AFTER 1 DAY Medications Current Medications Sodium Chloride 1,000 ml @ 1,000 mls/hr Q1H IV Last administered on 09/16/16 12:59; Start 09/16/16 at 12:17; Stop 09/16/16 at 13:16; Status DC Sodium Chloride (Normal Saline Flush) 10 ml QSHIFT PRN IV AFTER MEDS AND BLOOD DRAWS Last administered on 09/16/16 13:00; Start 09/16/16 at 12:30 Ondansetron HCl (Zofran) 4 mg PRN Q8HRS PRN IV NAUSEA/VOMITING; Start 09/16/16 at 15:45; Stop 09/17/16 at 15:44; Status DC Sodium Chloride 1,000 ml @ 50 mls/hr Q20H IV Last administered on 09/17/16 10 :38; Start 09/16/16 at 15:40; Stop 09/17/16 at 15:39; Status DC Acetaminophen (Tylenol) 650 mg PRN Q6HRS PRN PO FEVER Last administered on 09/18 08:33; Start 09/16/16 at 16:15 Ondansetron HCl (Zofran) 4 mg PRN Q6HRS PRN IV NAUSEA/VOMITING; Start 09/16/16 at 16:15 Morphine Sulfate 2 mg PRN Q2HR PRN IV PAIN; Start 09/16/16 at 16:15; Stop 09/17 at 12:52; Status DC Tramadol HCl (Ultram) 50 mg PRN Q6HRS PRN PO PAIN Last administered on 10:41; Start 09/16/16 at 16:15 Hydralazine HCl (Apresoline) 10 mg PRN Q4HRS PRN IVP ELEVATED BP, SEE COMMENTS ; Start 09/16/16 at 16:15 Docusate Sodium (Colace) 100 mg PRN DAILY PRN PO CONSTIPATION; Start 09/16/16 at 16:15 Enoxaparin Sodium (Lovenox 40mg Syringe) 40 mg QHS SQ ; Start 09/16/16 at 21:00 ; Stop 09/16/16 at 21:00; Status DC Multivitamins 10 ml/Thiamine HCl 100 mg/Folic Acid 1 mg/Sodium Chloride 1,011.2 ml @ 100 mls/ hr DAILY IV Last administered on 09/17/16 14:04; Start at 14:00; Stop 09/23/16 at 13:59 Phytonadione (Mephyton) 10 mg DAILY PO Last administered on 09/18/16 08:34; Start 09/17/16 at 18:30 Fludrocortisone Acetate (Florinef) 0.1 mg BID PO Last administered on 08:34; Start 09/17/16 at 21:00 Potassium Chloride (Klor-Con) 40 meq 1X ONCE PO Last administered on 07:16; Start 09/18/16 at 07:00; Stop 09/18/16 at 07:01; Status DC Potassium Chloride (Klor-Con) 40 meq 1X ONCE PO Last administered on 12:04; Start 09/18/16 at 12:00; Stop 09/18/16 at 12:01; Status DC Active Scripts Active Reported No Known Medications Prior To Admisstion (Info) Each 1 Each Vitals/I & O Vital Sign - Last 24 Hours 09/17/16 09/17/16 09/17/16 09/17/16 14:30 19:00 20:00 23:00 Temp 97.5 98.1 97.9 97.5 98.1 97.9 Pulse 84 87 98 Resp 20 20 20 B/P (MAP) 95/60 (72) 85/52 (63) 90/52 (65) Pulse Ox 97 97 98 O2 Delivery Room Air Room Air Room Air Room Air 09/18/16 09/18/16 09/18/16 09/18/16 03:00 07:45 08:00 09:30 Temp 97.9 98.9 98.7 97.9 98.9 98.7 Pulse 93 96 96 Resp 20 8 18 B/P (MAP) 93/51 (65) 81/52 (62) 81/52 Pulse Ox 99 96 O2 Delivery Room Air Room Air Room Air 09/18/16 09/18/16 09/18/16 09:45 10:45 11:45 Temp 98.4 98.4 98.4 98.4 98.4 98.4 Pulse 88 90 87 Resp 18 18 18 B/P (MAP) 73/46 74/50 81/55 Intake and Output 09/17/16 09/17/16 09/18/16 15:00 23:00 07:00 Intake Total 1590 ml 120 ml 120 ml Output Total 0 ml Balance 1590 ml 120 ml 120 ml Nutrition Consultation Dietary Evaluation: Recommendations by RD: Increase Calorie Intake, Protein supplementation Comments: low Na, high protein diet at d/c added Ensure bid rec mvi and appetite stimulant at d/c Expected Outcomes/Goals: consumption of nutrient dense foods Malnutrition Findings: Food and Nutrition Intake (Sev: <50% est energy req 5days Weight Status: Appropriate Fluid Accumulation (Severe): Severe MARILIN OLSEN MD Sep 18, 2016 12:27
[2016-09-18] MEDS ORDERED: oxyCODONE IR 5 MG TABLET PO PRN (13:00)
[2016-09-18] MEDS: LORazepam 1 MG TABLET PO SCH ×2 (13:44→21:00)
[2016-09-18] MEDS: LIDOCAINE (700MG/PATCH) PATCH. TD SCH (13:46)
[2016-09-18] MEDS: MULTIVIT INFUSN,ADULT 4,VIT K 10 ML, THIAMINE 100 MG, FOLIC ACID 1 MG in IV NORMAL SALI... IV SCH (14:52)
[2016-09-18 15:25] LABS: CERULOPLASMIN 17.4 mg/dL (16.0-31.0)
[2016-09-18] MEDS ORDERED: PHYTONADIONE 10 MG/ML AMPUL. SQ ONE (15:45)
[2016-09-18] MEDS: LACTULOSE 20 GM/30 ML SOLUTION. PO SCH (21:00)
[2016-09-19 03:06] VITALS: BP 93/65
[2016-09-19] MEDS ORDERED: IV NORMAL SALINE 500ML BAG 500 ML IV ONE (04:30)
[2016-09-19 06:03] LABS: BASO % 1 % (0-3); EOS % 1 % (0-3); HEMATOCRIT 26.8 % (39.0-53.0); HEMOGLOBIN 9.1 g/dL (13.0-17.5); LYMPH # 0.5 x10^3/uL (1.0-4.8); LYMPH % 6 % (24-48); MEAN CORPUSCULAR HEMOGLOBIN 27 pg (25-35); MEAN CORPUSCULAR HGB CONC 34 g/dL (31-37); MEAN CORPUSCULAR VOLUME 79 fL (79-100); MONO % 17 % (0-9); NEUT % 76 % (31-73); PLATELET COUNT 76 x10^3/uL (140-400); RED BLOOD COUNT 3.39 x10^6/uL (4.30-5.70); RED CELL DISTRIBUTION WIDTH 19.7 % (11.5-14.5); WHITE BLOOD COUNT 8.1 x10^3/uL (4.0-11.0)
[2016-09-19 06:09] LABS: PROTHROMBIN TIME PATIENT 40.9 SEC (11.7-14.0)
[2016-09-19 06:40] LABS: ALBUMIN 1.3 g/dL (3.4-5.0); ALBUMIN/GLOBULIN RATIO 0.3 (1.0-1.7); CALCIUM 6.6 mg/dL (8.5-10.1); GFR 26.3; POTASSIUM 3.8 mmol/L (3.5-5.1); TOTAL PROTEIN 5.5 g/dL (6.4-8.2)
[2016-09-19 06:42] LABS: INR 4.6 (0.8-1.1)
[2016-09-19 07:00] VITALS: BP 91/62
[2016-09-19] MEDS: LIDOCAINE (700MG/PATCH) PATCH. TD SCH (09:00)
[2016-09-19] MEDS: MULTIVIT INFUSN,ADULT 4,VIT K 10 ML, THIAMINE 100 MG, FOLIC ACID 1 MG in IV NORMAL SALI... IV SCH (10:04)
[2016-09-19] MEDS: LORazepam 1 MG TABLET PO SCH ×2 (10:09→21:00)
[2016-09-19] MEDS: FLUDROCORTISONE 0.1 MG TABLET PO SCH ×2 (10:09→21:00)
[2016-09-19] MEDS: PHYTONADIONE (VIT K1) 5 MG TABLET PO SCH (10:09)
[2016-09-19] MEDS: LACTULOSE 20 GM/30 ML SOLUTION. PO SCH (10:10)
[2016-09-19 11:00] VITALS: BP 87/60
[2016-09-19] MEDS ORDERED: PIP/TAZO PER PHARMACY MC PRN (11:30)
--- NOTE | 2016-09-19 11:35 | PDOC ---
PROGRESS NOTES Chief Complaint Chief Complaint acute hepatic failure Bacteremia today; 1/2, gm neg arminda ASSESSMENT AND PLAN: 1. sepsis 2. 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 acute renal failure, IV fluid, consult renal, follow I + O 4. Hypotension: chronic stable. better on florinef. 5. Thrombocytopenia. Anemia: microcytic; previous iron labs c/w severe inflammation; cirrhosis 6. Hypoalbuminemia, severe malnutrition: severe. 2/2 liver dz and malnutrition. supplements 7. acute renal on CKD3: creat at baseline 8. Hyponatremia: chronic 9. Bipolar affective disorder (BAD): continue home meds 10. Tobaccoism: cessation counseled poor prognosis History of Present Illness History of Present Illness appetite minimal, very weak no sign of withdrawl, cont tx his mother is here today, and mother of his child MELD score at 40. 3 month mortality is 71% Vitals Vitals Vital Signs Date Time Temp Pulse Resp B/P (MAP) Pulse Ox O2 Delivery O2 Flow Rate FiO2 09/19/16 11:00 97.6 96 18 87/60 (69) 98 Room Air 97.6 Physical Exam Physical Exam more lethargic today, poor po intake no nystagmus, no asterixis marked scleral icterus, jaundice of under tongue General: Alert, Oriented X3, Cooperative, No acute distress Heart: Regular rate Lungs: Clear Abdomen: Normal bowel sounds, Other (massive distension) Extremities: No clubbing Skin: No rashes Labs LABS Laboratory Tests Test 09/19/16 05:30 White Blood Count 8.1 x10^3/uL (4.0-11.0) Red Blood Count 3.39 x10^6/uL (4.30-5.70) Hemoglobin 9.1 g/dL (13.0-17.5) Hematocrit 26.8 % (39.0-53.0) Mean Corpuscular Volume 79 fL (79-100) Mean Corpuscular Hemoglobin 27 pg (25-35) Mean Corpuscular Hemoglobin Concent 34 g/dL (31-37) Red Cell Distribution Width 19.7 % (11.5-14.5) Platelet Count 76 x10^3/uL (140-400) Neutrophils (%) (Auto) 76 % (31-73) Lymphocytes (%) (Auto) 6 % (24-48) Monocytes (%) (Auto) 17 % (0-9) Eosinophils (%) (Auto) 1 % (0-3) Basophils (%) (Auto) 1 % (0-3) Neutrophils # (Auto) 6.2 x10^3uL (1.8-7.7) Lymphocytes # (Auto) 0.5 x10^3/uL (1.0-4.8) Monocytes # (Auto) 1.3 x10^3/uL (0.0-1.1) Eosinophils # (Auto) 0.0 x10^3/uL (0.0-0.7) Basophils # (Auto) 0.0 x10^3/uL (0.0-0.2) Prothrombin Time 40.9 SEC (11.7-14.0) Prothromb Time International Ratio 4.6 (0.8-1.1) Sodium Level 131 mmol/L (136-145) Potassium Level 3.8 mmol/L (3.5-5.1) Chloride Level 98 mmol/L (98-107) Carbon Dioxide Level 20 mmol/L (21-32) Anion Gap 13 (6-14) Blood Urea Nitrogen 34 mg/dL (8-26) Creatinine 3.0 mg/dL (0.7-1.3) Estimated GFR (Cockcroft-Gault) 26.3 BUN/Creatinine Ratio 11 (6-20) Glucose Level 83 mg/dL (70-99) Calcium Level 6.6 mg/dL (8.5-10.1) Total Bilirubin 35.0 mg/dL (0.2-1.0) Aspartate Amino Transf (AST/SGOT) 107 U/L (15-37) Alanine Aminotransferase (ALT/SGPT) 33 U/L (16-63) Alkaline Phosphatase 102 U/L (46-116) Total Protein 5.5 g/dL (6.4-8.2) Albumin 1.3 g/dL (3.4-5.0) Albumin/Globulin Ratio 0.3 (1.0-1.7) Review of Systems Review of Systems poor po intake lethargy, weakness Assessment and Plan Assessmemt and Plan Problems Medical Problems: (1) Anemia Status: Acute (2) Dehydration Status: Acute (3) Hyperbilirubinemia Status: Acute (4) Liver failure Status: Acute (5) Neuropathy Status: Acute Problems: Comment Review of Relevant I have reviewed the following items luigi (where applicable) has been applied. Labs Laboratory Tests Test 09/18/16 04:55 09/19/16 05:30 White Blood Count 8.9 x10^3/uL (4.0-11.0) 8.1 x10^3/uL (4.0-11.0) Red Blood Count 2.27 x10^6/uL (4.30-5.70) 3.39 x10^6/uL (4.30-5.70) Hemoglobin 6.0 g/dL (13.0-17.5) 9.1 g/dL (13.0-17.5) Hematocrit 17.6 % (39.0-53.0) 26.8 % (39.0-53.0) Mean Corpuscular Volume 78 fL (79-100) 79 fL (79-100) Mean Corpuscular Hemoglobin 27 pg (25-35) 27 pg (25-35) Mean Corpuscular Hemoglobin Concent 34 g/dL (31-37) 34 g/dL (31-37) Red Cell Distribution Width 22.0 % (11.5-14.5) 19.7 % (11.5-14.5) Platelet Count 95 x10^3/uL (140-400) 76 x10^3/uL (140-400) Neutrophils (%) (Auto) 73 % (31-73) 76 % (31-73) Lymphocytes (%) (Auto) 7 % (24-48) 6 % (24-48) Monocytes (%) (Auto) 19 % (0-9) 17 % (0-9) Eosinophils (%) (Auto) 1 % (0-3) 1 % (0-3) Basophils (%) (Auto) 1 % (0-3) 1 % (0-3) Neutrophils # (Auto) 6.5 x10^3uL (1.8-7.7) 6.2 x10^3uL (1.8-7.7) Lymphocytes # (Auto) 0.6 x10^3/uL (1.0-4.8) 0.5 x10^3/uL (1.0-4.8) Monocytes # (Auto) 1.7 x10^3/uL (0.0-1.1) 1.3 x10^3/uL (0.0-1.1) Eosinophils # (Auto) 0.1 x10^3/uL (0.0-0.7) 0.0 x10^3/uL (0.0-0.7) Basophils # (Auto) 0.1 x10^3/uL (0.0-0.2) 0.0 x10^3/uL (0.0-0.2) Prothrombin Time 31.8 SEC (11.7-14.0) 40.9 SEC (11.7-14.0) Prothromb Time International Ratio 3.3 (0.8-1.1) 4.6 (0.8-1.1) Sodium Level 128 mmol/L (136-145) 131 mmol/L (136-145) Potassium Level 2.8 mmol/L (3.5-5.1) 3.8 mmol/L (3.5-5.1) Chloride Level 94 mmol/L (98-107) 98 mmol/L (98-107) Carbon Dioxide Level 23 mmol/L (21-32) 20 mmol/L (21-32) Anion Gap 11 (6-14) 13 (6-14) Blood Urea Nitrogen 27 mg/dL (8-26) 34 mg/dL (8-26) Creatinine 2.0 mg/dL (0.7-1.3) 3.0 mg/dL (0.7-1.3) Estimated GFR (Cockcroft-Gault) 42.0 26.3 BUN/Creatinine Ratio 14 (6-20) 11 (6-20) Glucose Level 78 mg/dL (70-99) 83 mg/dL (70-99) Calcium Level 7.0 mg/dL (8.5-10.1) 6.6 mg/dL (8.5-10.1) Total Bilirubin 33.2 mg/dL (0.2-1.0) 35.0 mg/dL (0.2-1.0) Aspartate Amino Transf (AST/SGOT) 99 U/L (15-37) 107 U/L (15-37) Alanine Aminotransferase (ALT/SGPT) 27 U/L (16-63) 33 U/L (16-63) Alkaline Phosphatase 111 U/L (46-116) 102 U/L (46-116) Total Protein 5.5 g/dL (6.4-8.2) 5.5 g/dL (6.4-8.2) Albumin 1.3 g/dL (3.4-5.0) 1.3 g/dL (3.4-5.0) Albumin/Globulin Ratio 0.3 (1.0-1.7) 0.3 (1.0-1.7) Laboratory Tests Test 09/19/16 05:30 White Blood Count 8.1 x10^3/uL (4.0-11.0) Red Blood Count 3.39 x10^6/uL (4.30-5.70) Hemoglobin 9.1 g/dL (13.0-17.5) Hematocrit 26.8 % (39.0-53.0) Mean Corpuscular Volume 79 fL (79-100) Mean Corpuscular Hemoglobin 27 pg (25-35) Mean Corpuscular Hemoglobin Concent 34 g/dL (31-37) Red Cell Distribution Width 19.7 % (11.5-14.5) Platelet Count 76 x10^3/uL (140-400) Neutrophils (%) (Auto) 76 % (31-73) Lymphocytes (%) (Auto) 6 % (24-48) Monocytes (%) (Auto) 17 % (0-9) Eosinophils (%) (Auto) 1 % (0-3) Basophils (%) (Auto) 1 % (0-3) Neutrophils # (Auto) 6.2 x10^3uL (1.8-7.7) Lymphocytes # (Auto) 0.5 x10^3/uL (1.0-4.8) Monocytes # (Auto) 1.3 x10^3/uL (0.0-1.1) Eosinophils # (Auto) 0.0 x10^3/uL (0.0-0.7) Basophils # (Auto) 0.0 x10^3/uL (0.0-0.2) Prothrombin Time 40.9 SEC (11.7-14.0) Prothromb Time International Ratio 4.6 (0.8-1.1) Sodium Level 131 mmol/L (136-145) Potassium Level 3.8 mmol/L (3.5-5.1) Chloride Level 98 mmol/L (98-107) Carbon Dioxide Level 20 mmol/L (21-32) Anion Gap 13 (6-14) Blood Urea Nitrogen 34 mg/dL (8-26) Creatinine 3.0 mg/dL (0.7-1.3) Estimated GFR (Cockcroft-Gault) 26.3 BUN/Creatinine Ratio 11 (6-20) Glucose Level 83 mg/dL (70-99) Calcium Level 6.6 mg/dL (8.5-10.1) Total Bilirubin 35.0 mg/dL (0.2-1.0) Aspartate Amino Transf (AST/SGOT) 107 U/L (15-37) Alanine Aminotransferase (ALT/SGPT) 33 U/L (16-63) Alkaline Phosphatase 102 U/L (46-116) Total Protein 5.5 g/dL (6.4-8.2) Albumin 1.3 g/dL (3.4-5.0) Albumin/Globulin Ratio 0.3 (1.0-1.7) Microbiology 09/16/16 Blood Culture - Final, Complete Medications Current Medications Sodium Chloride 1,000 ml @ 1,000 mls/hr Q1H IV Last administered on 09/16/16 12:59; Start 09/16/16 at 12:17; Stop 09/16/16 at 13:16; Status DC Sodium Chloride (Normal Saline Flush) 10 ml QSHIFT PRN IV AFTER MEDS AND BLOOD DRAWS Last administered on 09/16/16 13:00; Start 09/16/16 at 12:30 Ondansetron HCl (Zofran) 4 mg PRN Q8HRS PRN IV NAUSEA/VOMITING; Start 09/16/16 at 15:45; Stop 09/17/16 at 15:44; Status DC Sodium Chloride 1,000 ml @ 50 mls/hr Q20H IV Last administered on 09/17/16 10 :38; Start 09/16/16 at 15:40; Stop 09/17/16 at 15:39; Status DC Acetaminophen (Tylenol) 650 mg PRN Q6HRS PRN PO FEVER Last administered on 09/18 08:33; Start 09/16/16 at 16:15 Ondansetron HCl (Zofran) 4 mg PRN Q6HRS PRN IV NAUSEA/VOMITING; Start 09/16/16 at 16:15 Morphine Sulfate 2 mg PRN Q2HR PRN IV PAIN; Start 09/16/16 at 16:15; Stop 09/17 at 12:52; Status DC Tramadol HCl (Ultram) 50 mg PRN Q6HRS PRN PO MILD - MODERATE PAIN Last administered on 09/17/16 10:41; Start 09/16/16 at 16:15 Hydralazine HCl (Apresoline) 10 mg PRN Q4HRS PRN IVP ELEVATED BP, SEE COMMENTS ; Start 09/16/16 at 16:15 Docusate Sodium (Colace) 100 mg PRN DAILY PRN PO CONSTIPATION; Start 09/16/16 at 16:15 Enoxaparin Sodium (Lovenox 40mg Syringe) 40 mg QHS SQ ; Start 09/16/16 at 21:00 ; Stop 09/16/16 at 21:00; Status DC Multivitamins 10 ml/Thiamine HCl 100 mg/Folic Acid 1 mg/Sodium Chloride 1,011.2 ml @ 100 mls/ hr DAILY IV Last administered on 09/19/16 10:04; Start at 14:00; Stop 09/23/16 at 13:59 Phytonadione (Mephyton) 10 mg DAILY PO Last administered on 09/19/16 10:09; Start 09/17/16 at 18:30 Fludrocortisone Acetate (Florinef) 0.1 mg BID PO Last administered on 10:09; Start 09/17/16 at 21:00 Potassium Chloride (Klor-Con) 40 meq 1X ONCE PO Last administered on 07:16; Start 09/18/16 at 07:00; Stop 09/18/16 at 07:01; Status DC Potassium Chloride (Klor-Con) 40 meq 1X ONCE PO Last administered on 12:04; Start 09/18/16 at 12:00; Stop 09/18/16 at 12:01; Status DC Lorazepam (Ativan) 2 mg PRN Q1HR PRN IV For CIWA 8-14; Start 09/18/16 at 12:30 Lorazepam (Ativan) 4 mg PRN Q1HR PRN IV For CIWA 15 or greater; Start 09/18/16 at 12:30 Lorazepam (Ativan) 1 mg BID PO Last administered on 09/19/16 10:09; Start at 12:30 Lidocaine (Lidoderm) 1 patch DAILY TD Last administered on 09/18/16 13:46; Start 09/18/16 at 13:00 Oxycodone HCl (Roxicodone) 5 mg PRN Q6HRS PRN PO SEVERE PAIN; Start 09/18/16 at 13:00 Phytonadione (Vitamin K) 10 mg 1X ONCE SQ Last administered on 09/18/16 18:20 ; Start 09/18/16 at 15:45; Stop 09/18/16 at 15:46; Status DC Lactulose 20 gm DAILY PO Last administered on 09/19/16 10:10; Start 09/18/16 at 21:00 Sodium Chloride 500 ml @ 500 mls/hr 1X ONCE IV Last administered on 04:26; Start 09/19/16 at 04:30; Stop 09/19/16 at 05:29; Status DC Piperacillin Sod/ Tazobactam Sod (Zosyn Per Pharmacy) 1 each PRN DAILY PRN MC SEE COMMENTS; Start 09/19/16 at 11:30; Status UNV Active Scripts Active Reported No Known Medications Prior To Admisstion (Info) Each 1 Each Vitals/I & O Vital Sign - Last 24 Hours 09/18/16 09/18/16 09/18/16 09/18/16 11:45 12:27 12:43 13:43 Temp 98.4 98.4 98.3 97.8 98.4 98.4 98.3 97.8 Pulse 87 87 83 88 Resp 18 18 16 18 B/P (MAP) 81/55 81/55 76/52 86/64 09/18/16 09/18/16 09/18/16 09/18/16 14:43 15:00 15:00 19:00 Temp 98.1 99.0 99.0 98.6 98.1 99.0 99.0 98.6 Pulse 83 87 92 Resp 18 20 20 B/P (MAP) 84/57 85/59 (68) 81/54 (63) Pulse Ox 97 98 O2 Delivery Room Air Room Air 7/21/17 7/21/17 7/22/17 7/22/17 20:12 23:00 03:06 07:00 Temp 98.8 98.5 97.5 98.8 98.5 97.5 Pulse 95 104 97 Resp 20 20 20 B/P (MAP) 84/60 (68) 93/65 (74) 91/62 (72) Pulse Ox 99 97 97 O2 Delivery Room Air Room Air Room Air Room Air 09/19/16 11:00 Temp 97.6 97.6 Pulse 96 Resp 18 B/P (MAP) 87/60 (69) Pulse Ox 98 O2 Delivery Room Air Intake and Output 09/18/16 09/18/16 09/19/16 15:00 23:00 07:00 Intake Total 1620 ml 0 ml 500 ml Balance 1620 ml 0 ml 500 ml Nutrition Consultation Dietary Evaluation: Recommendations by RD: Increase Calorie Intake, Protein supplementation Comments: low Na, high protein diet at d/c added Ensure bid rec mvi and appetite stimulant at d/c Expected Outcomes/Goals: consumption of nutrient dense foods Malnutrition Findings: Food and Nutrition Intake (Sev: <50% est energy req 5days Weight Status: Appropriate Fluid Accumulation (Severe): Severe MARILIN OLSEN MD Sep 19, 2016 11:35
[2016-09-19] MEDS ORDERED: IV NORMAL SALINE 1000ML BAG 1,000 ML IV ONE (11:45)
[2016-09-19] MEDS: PIPERACILLIN/TAZOBACTAM 2.25 GM in IV NORMAL SALINE 50ML 50 ML IV SCH ×2 (12:06→18:01)
[2016-09-19] MEDS: traMADol 50 MG TABLET PO PRN ×2 (12:06→18:00)
--- NOTE | 2016-09-19 12:34 | PDOC ---
G I PROGRESS NOTE Reason for Follow-up Liver disease Subjective More awake today. At least trying to eat. Physical Exam Lungs clear. RRR Abdomen more protuberant and firmer; unclear tense ascites or voluntary guarding. Intensely icteric. Review of Relevant I have reviewed the following items luigi (where applicable) has been applied. Labs Laboratory Tests Test 09/18/16 04:55 09/19/16 05:30 White Blood Count 8.9 x10^3/uL (4.0-11.0) 8.1 x10^3/uL (4.0-11.0) Red Blood Count 2.27 x10^6/uL (4.30-5.70) 3.39 x10^6/uL (4.30-5.70) Hemoglobin 6.0 g/dL (13.0-17.5) 9.1 g/dL (13.0-17.5) Hematocrit 17.6 % (39.0-53.0) 26.8 % (39.0-53.0) Mean Corpuscular Volume 78 fL (79-100) 79 fL (79-100) Mean Corpuscular Hemoglobin 27 pg (25-35) 27 pg (25-35) Mean Corpuscular Hemoglobin Concent 34 g/dL (31-37) 34 g/dL (31-37) Red Cell Distribution Width 22.0 % (11.5-14.5) 19.7 % (11.5-14.5) Platelet Count 95 x10^3/uL (140-400) 76 x10^3/uL (140-400) Neutrophils (%) (Auto) 73 % (31-73) 76 % (31-73) Lymphocytes (%) (Auto) 7 % (24-48) 6 % (24-48) Monocytes (%) (Auto) 19 % (0-9) 17 % (0-9) Eosinophils (%) (Auto) 1 % (0-3) 1 % (0-3) Basophils (%) (Auto) 1 % (0-3) 1 % (0-3) Neutrophils # (Auto) 6.5 x10^3uL (1.8-7.7) 6.2 x10^3uL (1.8-7.7) Lymphocytes # (Auto) 0.6 x10^3/uL (1.0-4.8) 0.5 x10^3/uL (1.0-4.8) Monocytes # (Auto) 1.7 x10^3/uL (0.0-1.1) 1.3 x10^3/uL (0.0-1.1) Eosinophils # (Auto) 0.1 x10^3/uL (0.0-0.7) 0.0 x10^3/uL (0.0-0.7) Basophils # (Auto) 0.1 x10^3/uL (0.0-0.2) 0.0 x10^3/uL (0.0-0.2) Prothrombin Time 31.8 SEC (11.7-14.0) 40.9 SEC (11.7-14.0) Prothromb Time International Ratio 3.3 (0.8-1.1) 4.6 (0.8-1.1) Sodium Level 128 mmol/L (136-145) 131 mmol/L (136-145) Potassium Level 2.8 mmol/L (3.5-5.1) 3.8 mmol/L (3.5-5.1) Chloride Level 94 mmol/L (98-107) 98 mmol/L (98-107) Carbon Dioxide Level 23 mmol/L (21-32) 20 mmol/L (21-32) Anion Gap 11 (6-14) 13 (6-14) Blood Urea Nitrogen 27 mg/dL (8-26) 34 mg/dL (8-26) Creatinine 2.0 mg/dL (0.7-1.3) 3.0 mg/dL (0.7-1.3) Estimated GFR (Cockcroft-Gault) 42.0 26.3 BUN/Creatinine Ratio 14 (6-20) 11 (6-20) Glucose Level 78 mg/dL (70-99) 83 mg/dL (70-99) Calcium Level 7.0 mg/dL (8.5-10.1) 6.6 mg/dL (8.5-10.1) Total Bilirubin 33.2 mg/dL (0.2-1.0) 35.0 mg/dL (0.2-1.0) Aspartate Amino Transf (AST/SGOT) 99 U/L (15-37) 107 U/L (15-37) Alanine Aminotransferase (ALT/SGPT) 27 U/L (16-63) 33 U/L (16-63) Alkaline Phosphatase 111 U/L (46-116) 102 U/L (46-116) Total Protein 5.5 g/dL (6.4-8.2) 5.5 g/dL (6.4-8.2) Albumin 1.3 g/dL (3.4-5.0) 1.3 g/dL (3.4-5.0) Albumin/Globulin Ratio 0.3 (1.0-1.7) 0.3 (1.0-1.7) Laboratory Tests Test 09/19/16 05:30 White Blood Count 8.1 x10^3/uL (4.0-11.0) Red Blood Count 3.39 x10^6/uL (4.30-5.70) Hemoglobin 9.1 g/dL (13.0-17.5) Hematocrit 26.8 % (39.0-53.0) Mean Corpuscular Volume 79 fL (79-100) Mean Corpuscular Hemoglobin 27 pg (25-35) Mean Corpuscular Hemoglobin Concent 34 g/dL (31-37) Red Cell Distribution Width 19.7 % (11.5-14.5) Platelet Count 76 x10^3/uL (140-400) Neutrophils (%) (Auto) 76 % (31-73) Lymphocytes (%) (Auto) 6 % (24-48) Monocytes (%) (Auto) 17 % (0-9) Eosinophils (%) (Auto) 1 % (0-3) Basophils (%) (Auto) 1 % (0-3) Neutrophils # (Auto) 6.2 x10^3uL (1.8-7.7) Lymphocytes # (Auto) 0.5 x10^3/uL (1.0-4.8) Monocytes # (Auto) 1.3 x10^3/uL (0.0-1.1) Eosinophils # (Auto) 0.0 x10^3/uL (0.0-0.7) Basophils # (Auto) 0.0 x10^3/uL (0.0-0.2) Prothrombin Time 40.9 SEC (11.7-14.0) Prothromb Time International Ratio 4.6 (0.8-1.1) Sodium Level 131 mmol/L (136-145) Potassium Level 3.8 mmol/L (3.5-5.1) Chloride Level 98 mmol/L (98-107) Carbon Dioxide Level 20 mmol/L (21-32) Anion Gap 13 (6-14) Blood Urea Nitrogen 34 mg/dL (8-26) Creatinine 3.0 mg/dL (0.7-1.3) Estimated GFR (Cockcroft-Gault) 26.3 BUN/Creatinine Ratio 11 (6-20) Glucose Level 83 mg/dL (70-99) Calcium Level 6.6 mg/dL (8.5-10.1) Total Bilirubin 35.0 mg/dL (0.2-1.0) Aspartate Amino Transf (AST/SGOT) 107 U/L (15-37) Alanine Aminotransferase (ALT/SGPT) 33 U/L (16-63) Alkaline Phosphatase 102 U/L (46-116) Total Protein 5.5 g/dL (6.4-8.2) Albumin 1.3 g/dL (3.4-5.0) Albumin/Globulin Ratio 0.3 (1.0-1.7) Microbiology 09/16/16 Blood Culture - Final, Complete LFT's about the same. INR worse; no response to parenteral vit K. Medications Current Medications Sodium Chloride 1,000 ml @ 1,000 mls/hr Q1H IV Last administered on 09/16/16 12:59; Start 09/16/16 at 12:17; Stop 09/16/16 at 13:16; Status DC Sodium Chloride (Normal Saline Flush) 10 ml QSHIFT PRN IV AFTER MEDS AND BLOOD DRAWS Last administered on 09/16/16 13:00; Start 09/16/16 at 12:30 Ondansetron HCl (Zofran) 4 mg PRN Q8HRS PRN IV NAUSEA/VOMITING; Start 09/16/16 at 15:45; Stop 09/17/16 at 15:44; Status DC Sodium Chloride 1,000 ml @ 50 mls/hr Q20H IV Last administered on 09/17/16 10 :38; Start 09/16/16 at 15:40; Stop 09/17/16 at 15:39; Status DC Acetaminophen (Tylenol) 650 mg PRN Q6HRS PRN PO FEVER Last administered on 09/18 08:33; Start 09/16/16 at 16:15 Ondansetron HCl (Zofran) 4 mg PRN Q6HRS PRN IV NAUSEA/VOMITING; Start 09/16/16 at 16:15 Morphine Sulfate 2 mg PRN Q2HR PRN IV PAIN; Start 09/16/16 at 16:15; Stop 09/17 at 12:52; Status DC Tramadol HCl (Ultram) 50 mg PRN Q6HRS PRN PO MILD - MODERATE PAIN Last administered on 09/19/16 12:06; Start 09/16/16 at 16:15 Hydralazine HCl (Apresoline) 10 mg PRN Q4HRS PRN IVP ELEVATED BP, SEE COMMENTS ; Start 09/16/16 at 16:15 Docusate Sodium (Colace) 100 mg PRN DAILY PRN PO CONSTIPATION; Start 09/16/16 at 16:15 Enoxaparin Sodium (Lovenox 40mg Syringe) 40 mg QHS SQ ; Start 09/16/16 at 21:00 ; Stop 09/16/16 at 21:00; Status DC Multivitamins 10 ml/Thiamine HCl 100 mg/Folic Acid 1 mg/Sodium Chloride 1,011.2 ml @ 100 mls/ hr DAILY IV Last administered on 09/19/16 10:04; Start at 14:00; Stop 09/23/16 at 13:59 Phytonadione (Mephyton) 10 mg DAILY PO Last administered on 09/19/16 10:09; Start 09/17/16 at 18:30 Fludrocortisone Acetate (Florinef) 0.1 mg BID PO Last administered on 10:09; Start 09/17/16 at 21:00 Potassium Chloride (Klor-Con) 40 meq 1X ONCE PO Last administered on 07:16; Start 09/18/16 at 07:00; Stop 09/18/16 at 07:01; Status DC Potassium Chloride (Klor-Con) 40 meq 1X ONCE PO Last administered on 12:04; Start 09/18/16 at 12:00; Stop 09/18/16 at 12:01; Status DC Lorazepam (Ativan) 2 mg PRN Q1HR PRN IV For CIWA 8-14; Start 09/18/16 at 12:30 Lorazepam (Ativan) 4 mg PRN Q1HR PRN IV For CIWA 15 or greater; Start 09/18/16 at 12:30 Lorazepam (Ativan) 1 mg BID PO Last administered on 09/19/16 10:09; Start at 12:30 Lidocaine (Lidoderm) 1 patch DAILY TD Last administered on 09/18/16 13:46; Start 09/18/16 at 13:00 Oxycodone HCl (Roxicodone) 5 mg PRN Q6HRS PRN PO SEVERE PAIN; Start 09/18/16 at 13:00 Phytonadione (Vitamin K) 10 mg 1X ONCE SQ Last administered on 09/18/16 18:20 ; Start 09/18/16 at 15:45; Stop 09/18/16 at 15:46; Status DC Lactulose 20 gm DAILY PO Last administered on 09/19/16 10:10; Start 09/18/16 at 21:00 Sodium Chloride 500 ml @ 500 mls/hr 1X ONCE IV Last administered on 04:26; Start 09/19/16 at 04:30; Stop 09/19/16 at 05:29; Status DC Piperacillin Sod/ Tazobactam Sod (Zosyn Per Pharmacy) 1 each PRN DAILY PRN SEE COMMENTS; Start 09/19/16 at 11:30 Sodium Chloride 1,000 ml @ 150 mls/hr 1X ONCE IV Last administered on 12:06; Start 09/19/16 at 11:45; Stop 09/19/16 at 18:24 Piperacillin Sod/ Tazobactam Sod 2.25 gm/Sodium Chloride 50 ml @ 100 mls/hr Q6HRS IV Last administered on 09/19/16 12:06; Start 09/19/16 at 12:00 Active Scripts Active Reported No Known Medications Prior To Admisstion (Info) Each 1 Each Vitals/I & O Vital Sign - Last 24 Hours 09/18/16 09/18/16 09/18/16 09/18/16 12:43 13:43 14:43 15:00 Temp 98.3 97.8 98.1 99.0 98.3 97.8 98.1 99.0 Pulse 83 88 83 Resp 16 18 18 B/P (MAP) 76/52 86/64 84/57 09/18/16 09/18/16 09/18/16 09/18/16 15:00 19:00 20:12 23:00 Temp 99.0 98.6 98.8 99.0 98.6 98.8 Pulse 87 92 95 Resp 20 20 20 B/P (MAP) 85/59 (68) 81/54 (63) 84/60 (68) Pulse Ox 97 98 99 O2 Delivery Room Air Room Air Room Air Room Air 09/19/16 09/19/16 09/19/16 09/19/16 03:06 07:00 11:00 12:06 Temp 98.5 97.5 97.6 98.5 97.5 97.6 Pulse 104 97 96 Resp 20 18 B/P (MAP) 93/65 (74) 91/62 (72) 87/60 (69) Pulse Ox 97 97 98 O2 Delivery Room Air Room Air Room Air Room Air Intake and Output 09/18/16 09/18/16 09/19/16 15:00 23:00 07:00 Intake Total 1620 ml 0 ml 500 ml Balance 1620 ml 0 ml 500 ml Problem List Problems Medical Problems: (1) Anemia Status: Acute (2) Dehydration Status: Acute (3) Hyperbilirubinemia Status: Acute (4) Liver failure Status: Acute (5) Neuropathy Status: Acute Assessment Alcoholic hepatitis/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 Plan of Care: Continue current Tx, Mgmt Plan of Care Note Time will tell. SUDHAKAR HORNER MD Sep 19, 2016 12:34
--- NOTE | 2016-09-19 13:30 | PDOC ---
Infectious Disease Note Vital Sign Vital Signs Vital Signs Date Time Temp Pulse Resp B/P (MAP) Pulse Ox O2 Delivery O2 Flow Rate FiO2 09/19/16 12:06 Room Air 09/19/16 11:00 97.6 96 18 87/60 (69) 98 97.6 Labs Lab Laboratory Tests Test 09/19/16 05:30 White Blood Count 8.1 x10^3/uL (4.0-11.0) Red Blood Count 3.39 x10^6/uL (4.30-5.70) Hemoglobin 9.1 g/dL (13.0-17.5) Hematocrit 26.8 % (39.0-53.0) Mean Corpuscular Volume 79 fL (79-100) Mean Corpuscular Hemoglobin 27 pg (25-35) Mean Corpuscular Hemoglobin Concent 34 g/dL (31-37) Red Cell Distribution Width 19.7 % (11.5-14.5) Platelet Count 76 x10^3/uL (140-400) Neutrophils (%) (Auto) 76 % (31-73) Lymphocytes (%) (Auto) 6 % (24-48) Monocytes (%) (Auto) 17 % (0-9) Eosinophils (%) (Auto) 1 % (0-3) Basophils (%) (Auto) 1 % (0-3) Neutrophils # (Auto) 6.2 x10^3uL (1.8-7.7) Lymphocytes # (Auto) 0.5 x10^3/uL (1.0-4.8) Monocytes # (Auto) 1.3 x10^3/uL (0.0-1.1) Eosinophils # (Auto) 0.0 x10^3/uL (0.0-0.7) Basophils # (Auto) 0.0 x10^3/uL (0.0-0.2) Prothrombin Time 40.9 SEC (11.7-14.0) Prothromb Time International Ratio 4.6 (0.8-1.1) Sodium Level 131 mmol/L (136-145) Potassium Level 3.8 mmol/L (3.5-5.1) Chloride Level 98 mmol/L (98-107) Carbon Dioxide Level 20 mmol/L (21-32) Anion Gap 13 (6-14) Blood Urea Nitrogen 34 mg/dL (8-26) Creatinine 3.0 mg/dL (0.7-1.3) Estimated GFR (Cockcroft-Gault) 26.3 BUN/Creatinine Ratio 11 (6-20) Glucose Level 83 mg/dL (70-99) Calcium Level 6.6 mg/dL (8.5-10.1) Total Bilirubin 35.0 mg/dL (0.2-1.0) Aspartate Amino Transf (AST/SGOT) 107 U/L (15-37) Alanine Aminotransferase (ALT/SGPT) 33 U/L (16-63) Alkaline Phosphatase 102 U/L (46-116) Total Protein 5.5 g/dL (6.4-8.2) Albumin 1.3 g/dL (3.4-5.0) Albumin/Globulin Ratio 0.3 (1.0-1.7) Micro BLOOD CULTURE Final GRAM NEGATIVE RODS, IN 1 OF 2 BOTTLES, ONE SET DRAWN. Objective Assessment GNR sepsis with hypotension, POA Lactic acidosis Encephalopathy Acute renal failure, worsening Alcoholic liver disease with hyperbilirubinemia, coagulopathy and thrombocytopenia Anemia, s/p PRBCs 09/18 Plan Plan of Care Agree with Juan Palomo GNR ID Monitor lab values D/w family Thank you [phone] Patient seen and examined. Chart reviewed. Case discussed with AUDIO VIDEO TECH. Agree with above plan. CK OLIVARES APRN Sep 19, 2016 13:30 DIANNA BUSH MD Sep 19, 2016 16:57
[2016-09-19 15:00] VITALS: BP 97/69
[2016-09-19 19:00] VITALS: BP 90/67
[2016-09-19 23:00] VITALS: BP 95/67
[2016-09-20] VITALS (15 sets, daily range): BP systolic 65–109; BP diastolic 44–78
[2016-09-20] MEDS: PIPERACILLIN/TAZOBACTAM 2.25 GM in IV NORMAL SALINE 50ML 50 ML IV SCH ×4 (00:29→23:05)
--- NOTE | 2016-09-20 00:32 | CONS ---
DATE OF CONSULTATION: 09/19/2016 REFERRING PHYSICIAN: Dr. Stoll. REASON FOR CONSULTATION: Positive blood cultures. HISTORY OF PRESENT ILLNESS: This patient is a 55-year-old -[place] gentleman, who presents with a 1-month history of generalized weakness, weight loss, abdominal discomfort, decreased appetite and confusion. He has a history of excessive alcohol consumption. According to his family, his last drink was about 4 days prior to admission. On arrival to the ER, he had elevated white blood cell count of 11,700, lactic acid 2.5, ammonia level 21, creatinine 1.6, total bilirubin 36.7, AST 125, ALT 36 and an INR of 2.8. An ultrasound showed fatty liver and splenomegaly with a small amount of ascites. Urinalysis unremarkable for infection. Blood cultures have since returned with gram-negative rods in 1 of 2 bottles so far. Hence, ID consult. The patient is anemic and had received a blood transfusion yesterday. He has been hypotensive since admission. The patient is lethargic. He is unable to provide a further history of present illness, past medical history or additional review of systems. His family is present and is very supportive and attentive to his needs. PAST MEDICAL HISTORY: Bipolar disorder, depression, peripheral neuropathy and alcoholism. PAST SURGICAL HISTORY: Cholecystectomy. SOCIAL HISTORY: The patient lives alone. Excessive alcohol consumption. He is a smoker. ALLERGIES: No known drug allergies. FAMILY HISTORY: Positive for lung cancer. MEDICATIONS: Reviewed on APR. Currently on piperacillin/tazobactam. REVIEW OF SYSTEMS: Limited as the patient is very lethargic. PHYSICAL EXAMINATION: GENERAL: -[place] male, propped up in bed, in no apparent distress. VITAL SIGNS: Blood pressure 87/60, heart rate 96, respiratory rate 18, pulse oximetry 98% on room air. HEENT: Pupils equally round. Sclerae icterus. Oral mucosa pink, dry. Poor dentition. NECK: Supple. LUNGS: Diminished aeration in the bases, nonlabored. HEART: Normal S1, S2. ABDOMEN: Distended. Bowel sounds present. Firm, nontender to light palpation. EXTREMITIES: Bilateral lower extremity edema, no cyanosis. SKIN: Without rash. NEUROLOGIC: Lethargic. LABORATORY DATA: Today's WBC 8.1, hemoglobin 9.1, platelet count 76,000. Sodium 131, potassium 3.8, creatinine 3.0, BUN 34, repeat lactic acid 1.9. Total bilirubin 35.0, AST 107, ALT 33. Ammonia 21, albumin 1.3. Ceruloplasmin 17.4. TSH 0.936. Lipase 140. INR 4.6. Urine toxicology negative. Ethyl alcohol less than 10, copper 62. Abdominal ultrasound shows fatty infiltration, splenomegaly and small amount of ascites. Chest x-ray shows no acute or focal processes. Head CT, chronic changes. IMPRESSION: 1. Gram-negative arminda sepsis with hypotension, present on admission. 2. Lactic acidosis. 3. Encephalopathy. 4. Acute renal failure. 5. Alcoholic liver disease with hyperbilirubinemia, coagulopathy and thrombocytopenia. PLAN: Agree with piperacillin/tazobactam for now. Await gram-negative rods identification. Monitor laboratory values. Supportive care. Discussed with family. Thank you, Dr. Stoll for asking us to participate in this patient's care. Should you have further questions or concerns, please call. DIANNA BUSH MD DR: MINNIE/mauricio JOB#: [id number] / [id number]
[2016-09-20] MEDS: traMADol 50 MG TABLET PO PRN (06:22)
[2016-09-20] MEDS ORDERED: IV NORMAL SALINE 1000ML BAG 1,000 ML IV ONE ×2 (08:30→15:30)
--- NOTE | 2016-09-20 08:57 | PDOC2 ---
CONSULT Date of Consult Date of Consult DATE: 09/20/16 TIME: 08:46 Reason for Consult Reason for Consult: ISRA Referring Physician Referring Physician: Dr Stoll Source Source: Chart review, Patient History of Present Illness Reason for Visit: as dictated Past Medical History Cardiovascular: No pertinent hx Pulmonary: No pertinent hx GI: No pertinent hx Heme/Onc: No pertinent hx Hepatobiliary: No pertinent hx Psych: No pertinent hx Rheumatologic: No pertinent hx Infectious disease: No pertinent hx Renal/: No pertinent hx Endocrine: No pertinent hx Past Surgical History Past Surgical History: Appendectomy, Cholecystectomy Family History Family History: Hypertension Social History ALCOHOL: heavy (1 pint of gin daily) Drugs: None Current Problem List Problem List Problems Medical Problems: (1) Anemia Status: Acute (2) Dehydration Status: Acute (3) Hyperbilirubinemia Status: Acute (4) Liver failure Status: Acute (5) Neuropathy Status: Acute Current Medications Current Medications Current Medications Sodium Chloride 1,000 ml @ 1,000 mls/hr Q1H IV Last administered on 09/16/16 12:59; Start 09/16/16 at 12:17; Stop 09/16/16 at 13:16; Status DC Sodium Chloride (Normal Saline Flush) 10 ml QSHIFT PRN IV AFTER MEDS AND BLOOD DRAWS Last administered on 09/16/16 13:00; Start 09/16/16 at 12:30 Ondansetron HCl (Zofran) 4 mg PRN Q8HRS PRN IV NAUSEA/VOMITING; Start 09/16/16 at 15:45; Stop 09/17/16 at 15:44; Status DC Sodium Chloride 1,000 ml @ 50 mls/hr Q20H IV Last administered on 09/17/16 10 :38; Start 09/16/16 at 15:40; Stop 09/17/16 at 15:39; Status DC Acetaminophen (Tylenol) 650 mg PRN Q6HRS PRN PO FEVER Last administered on 09/18 08:33; Start 09/16/16 at 16:15 Ondansetron HCl (Zofran) 4 mg PRN Q6HRS PRN IV NAUSEA/VOMITING; Start 09/16/16 at 16:15 Morphine Sulfate 2 mg PRN Q2HR PRN IV PAIN; Start 09/16/16 at 16:15; Stop 09/17 at 12:52; Status DC Tramadol HCl (Ultram) 50 mg PRN Q6HRS PRN PO MILD - MODERATE PAIN Last administered on 09/20/16 06:22; Start 09/16/16 at 16:15 Hydralazine HCl (Apresoline) 10 mg PRN Q4HRS PRN IVP ELEVATED BP, SEE COMMENTS ; Start 09/16/16 at 16:15 Docusate Sodium (Colace) 100 mg PRN DAILY PRN PO CONSTIPATION; Start 09/16/16 at 16:15 Enoxaparin Sodium (Lovenox 40mg Syringe) 40 mg QHS SQ ; Start 09/16/16 at 21:00 ; Stop 09/16/16 at 21:00; Status DC Multivitamins 10 ml/Thiamine HCl 100 mg/Folic Acid 1 mg/Sodium Chloride 1,011.2 ml @ 100 mls/ hr DAILY IV Last administered on 09/19/16 10:04; Start at 14:00; Stop 09/20/16 at 21:00 Phytonadione (Mephyton) 10 mg DAILY PO Last administered on 09/19/16 10:09; Start 09/17/16 at 18:30 Fludrocortisone Acetate (Florinef) 0.1 mg BID PO Last administered on 10:09; Start 09/17/16 at 21:00 Potassium Chloride (Klor-Con) 40 meq 1X ONCE PO Last administered on 07:16; Start 09/18/16 at 07:00; Stop 09/18/16 at 07:01; Status DC Potassium Chloride (Klor-Con) 40 meq 1X ONCE PO Last administered on 12:04; Start 09/18/16 at 12:00; Stop 09/18/16 at 12:01; Status DC Lorazepam (Ativan) 2 mg PRN Q1HR PRN IV For CIWA 8-14 Last administered on 09/19 18:08; Start 09/18/16 at 12:30 Lorazepam (Ativan) 4 mg PRN Q1HR PRN IV For CIWA 15 or greater; Start 09/18/16 at 12:30 Lorazepam (Ativan) 1 mg BID PO Last administered on 09/19/16 10:09; Start at 12:30 Lidocaine (Lidoderm) 1 patch DAILY TD Last administered on 09/18/16 13:46; Start 09/18/16 at 13:00 Oxycodone HCl (Roxicodone) 5 mg PRN Q6HRS PRN PO SEVERE PAIN; Start 09/18/16 at 13:00 Phytonadione (Vitamin K) 10 mg 1X ONCE SQ Last administered on 09/18/16 18:20 ; Start 09/18/16 at 15:45; Stop 09/18/16 at 15:46; Status DC Lactulose 20 gm DAILY PO Last administered on 09/19/16 10:10; Start 09/18/16 at 21:00 Sodium Chloride 500 ml @ 500 mls/hr 1X ONCE IV Last administered on 04:26; Start 09/19/16 at 04:30; Stop 09/19/16 at 05:29; Status DC Piperacillin Sod/ Tazobactam Sod (Zosyn Per Pharmacy) 1 each PRN DAILY PRN [facility] SEE COMMENTS; Start 09/19/16 at 11:30 Sodium Chloride 1,000 ml @ 150 mls/hr 1X ONCE IV Last administered on 12:06; Start 09/19/16 at 11:45; Stop 09/19/16 at 18:24; Status DC Piperacillin Sod/ Tazobactam Sod 2.25 gm/Sodium Chloride 50 ml @ 100 mls/hr Q6HRS IV Last administered on 09/20/16 05:57; Start 09/19/16 at 12:00 Multivitamins (Thera M Plus) 1 tab DAILY PO ; Start 09/21/16 at 09:00 Folic Acid (Folic Acid) 1 mg DAILY PO ; Start 09/21/16 at 09:00 Thiamine Mononitrate (Vitamin B-1) 100 mg DAILY PO ; Start 09/21/16 at 09:00 Sodium Chloride 1,000 ml @ 1,000 mls/hr 1X ONCE IV ; Start 09/20/16 at 08:30; Stop 09/20/16 at 09:29 Active Scripts Active Reported No Known Medications Prior To Admisstion (Info) Each 1 Each Allergies Allergies: Coded Allergies: No Known Drug Allergies (Unverified , 6/1/16) ROS Review of System Reviewed in EMR; Pt currently too somnolent (after Ativan Last pm) and is unable to asnwer Qs Physical Exam Physical Exam General Appearance: not Awake not Alert Oriented x 0 In no Distress Eyes: VIsion Unchanged Conjunctiva Normal EN: No EN Drainage Mucous Memb. dry Neck: no JVD + JVP Supple no Thyromegaly CVS: S1 S2 no Murmur No Gallop No Rub +1-2 Edema Resp: no Rales no Rhonchi no Acc. Muscle use GI: BAS +ve NO Bruit Non Tender + Distended : no CVA tenderness; no Suprapubic Tenderness SKIN: novisible Rashes Breast Exam deferred Mu.Sk: Adequate passive ROM min Muscle Atrophy Heme: Unable to palpate Obvious LAD no palp Splenomegaly - given abd distention NEURO: unable to assess due to sedated state, No Asterixis Psych: unable to assess due to sedated state Vital Signs Vital Signs Date Time Temp Pulse Resp B/P (MAP) Pulse Ox O2 Delivery O2 Flow Rate FiO2 09/20/16 08:43 Room Air 09/20/16 06:22 99 09/20/16 05:29 24 92/69 (77) 09/20/16 02:57 98.9 16 98.9 Assessment & Plan ARF: Unable to place nance cath. Current FLuid and E-lyte status does not necessitate emergent need for Dialysis. Will re-evaluate for Dialysis in am. Transfer to [facility] is in the works since URO services are NA here. Cannot R/o ATN / HRS given underlying SIRS +?MARTIN and Cirrhosis Low K - resolved on last check Low Na - watch trend for now - labs pending SEv Jaundice - due to liver dysfunction SEv HypoAlbuminemia - presumed asso with Cirrhosis Cirrhosis with AScites - transfer to for Hepatology HypoCalcemia - corrects for Low ALb Mild Met Acidosis - no ABG avial Anemia: Transfused and now hgb is 9.1 HypoTN: ? due to sepsis/ SIrs - watch trend - may need pressors in light of Bacteremia Discussed Plan of Care and prognosis etc. at length with Dr Stoll and agree with Transfer to Labs Labs Laboratory Tests Test 09/19/16 05:30 White Blood Count 8.1 x10^3/uL (4.0-11.0) Red Blood Count 3.39 x10^6/uL (4.30-5.70) Hemoglobin 9.1 g/dL (13.0-17.5) Hematocrit 26.8 % (39.0-53.0) Mean Corpuscular Volume 79 fL (79-100) Mean Corpuscular Hemoglobin 27 pg (25-35) Mean Corpuscular Hemoglobin Concent 34 g/dL (31-37) Red Cell Distribution Width 19.7 % (11.5-14.5) Platelet Count 76 x10^3/uL (140-400) Neutrophils (%) (Auto) 76 % (31-73) Lymphocytes (%) (Auto) 6 % (24-48) Monocytes (%) (Auto) 17 % (0-9) Eosinophils (%) (Auto) 1 % (0-3) Basophils (%) (Auto) 1 % (0-3) Neutrophils # (Auto) 6.2 x10^3uL (1.8-7.7) Lymphocytes # (Auto) 0.5 x10^3/uL (1.0-4.8) Monocytes # (Auto) 1.3 x10^3/uL (0.0-1.1) Eosinophils # (Auto) 0.0 x10^3/uL (0.0-0.7) Basophils # (Auto) 0.0 x10^3/uL (0.0-0.2) Prothrombin Time 40.9 SEC (11.7-14.0) Prothromb Time International Ratio 4.6 (0.8-1.1) Sodium Level 131 mmol/L (136-145) Potassium Level 3.8 mmol/L (3.5-5.1) Chloride Level 98 mmol/L (98-107) Carbon Dioxide Level 20 mmol/L (21-32) Anion Gap 13 (6-14) Blood Urea Nitrogen 34 mg/dL (8-26) Creatinine 3.0 mg/dL (0.7-1.3) Estimated GFR (Cockcroft-Gault) 26.3 BUN/Creatinine Ratio 11 (6-20) Glucose Level 83 mg/dL (70-99) Calcium Level 6.6 mg/dL (8.5-10.1) Total Bilirubin 35.0 mg/dL (0.2-1.0) Aspartate Amino Transf (AST/SGOT) 107 U/L (15-37) Alanine Aminotransferase (ALT/SGPT) 33 U/L (16-63) Alkaline Phosphatase 102 U/L (46-116) Total Protein 5.5 g/dL (6.4-8.2) Albumin 1.3 g/dL (3.4-5.0) Albumin/Globulin Ratio 0.3 (1.0-1.7) AMANDA EDEN MD Sep 20, 2016 08:57
[2016-09-20] MEDS: PHYTONADIONE (VIT K1) 5 MG TABLET PO SCH (09:00)
[2016-09-20] MEDS: LORazepam 1 MG TABLET PO SCH ×2 (09:00→20:27)
[2016-09-20] MEDS: LIDOCAINE (700MG/PATCH) PATCH. TD SCH (09:00)
[2016-09-20] MEDS: FLUDROCORTISONE 0.1 MG TABLET PO SCH ×2 (09:00→20:27)
[2016-09-20] MEDS: LACTULOSE 20 GM/30 ML SOLUTION. PO SCH (09:00)
[2016-09-20 09:06] LABS: BASO % 1 % (0-3); EOS % 1 % (0-3); HEMATOCRIT 23.9 % (39.0-53.0); HEMOGLOBIN 8.1 g/dL (13.0-17.5); LYMPH # 0.9 x10^3/uL (1.0-4.8); LYMPH % 12 % (24-48); MEAN CORPUSCULAR HEMOGLOBIN 27 pg (25-35); MEAN CORPUSCULAR HGB CONC 34 g/dL (31-37); MEAN CORPUSCULAR VOLUME 79 fL (79-100); MONO % 16 % (0-9); NEUT % 72 % (31-73); PLATELET COUNT 62 x10^3/uL (140-400); RED BLOOD COUNT 3.03 x10^6/uL (4.30-5.70); RED CELL DISTRIBUTION WIDTH 19.5 % (11.5-14.5); WHITE BLOOD COUNT 7.9 x10^3/uL (4.0-11.0)
[2016-09-20 09:14] LABS: CALCIUM 7.1 mg/dL (8.5-10.1); GFR 18.9; POTASSIUM 3.7 mmol/L (3.5-5.1)
--- NOTE | 2016-09-20 09:29 | PDOC ---
PROGRESS NOTES Chief Complaint Chief Complaint acute hepatic failure on likely cirrhosis Bacteremia and sepsis urinary retention, no urine output, with acute renal failure ASSESSMENT AND PLAN: 1. acute metabolic encephalopathy, 2. EtOH abuse: chronic alcoholic with likely EtOH cirrhosis: for poo 3. chronic hypotension has been stable, restart IV fluid for poor po intake, , will third-space 4. Acute renal failure, consult renal, check US for obs 5. Thrombocytopenia and anemia : 6. Hypoalbuminemia: severe malnutrition was POA. w/ liver dz 7. Hyponatremia: chronic (at least since 07/2015). currently at baseline. 8. small ascites: 9. Hx Bipolar affective disorder (BAD): continue home meds Condition: guarded Prognosis: very poor History of Present Illness History of Present Illness I called transfer center today asking for transfer to [facility] level [facility] Med problems, Acute renal failure, Likely ESLD, sepsis and bacteremia, now with oliguria and we are unable to pass nance catheter or couday despite multiple attempts triage and medicine waiter/waitress second class declined transfer, and asked that I consult gen surgery to eval for nance placement. I discussed with his mother at length. Pt more confused and lethargic today, labs pending, will check ammonia again, Vitals Vitals Vital Signs Date Time Temp Pulse Resp B/P (MAP) Pulse Ox O2 Delivery O2 Flow Rate FiO2 09/20/16 08:43 Room Air 09/20/16 06:22 99 09/20/16 05:29 24 92/69 (77) 09/20/16 02:57 98.9 16 98.9 Physical Exam Physical Exam more lethargic again today, poor po intake does follow most commands, but falls back asleep General: Cooperative, No acute distress Heart: Regular rate Lungs: Clear Abdomen: Normal bowel sounds, Other (massive distension) Extremities: No clubbing, Other (1+ LE edema) Skin: No rashes Labs LABS Laboratory Tests Test 09/20/16 08:55 White Blood Count 7.9 x10^3/uL (4.0-11.0) Red Blood Count 3.03 x10^6/uL (4.30-5.70) Hemoglobin 8.1 g/dL (13.0-17.5) Hematocrit 23.9 % (39.0-53.0) Mean Corpuscular Volume 79 fL (79-100) Mean Corpuscular Hemoglobin 27 pg (25-35) Mean Corpuscular Hemoglobin Concent 34 g/dL (31-37) Red Cell Distribution Width 19.5 % (11.5-14.5) Platelet Count 62 x10^3/uL (140-400) Neutrophils (%) (Auto) 72 % (31-73) Lymphocytes (%) (Auto) 12 % (24-48) Monocytes (%) (Auto) 16 % (0-9) Eosinophils (%) (Auto) 1 % (0-3) Basophils (%) (Auto) 1 % (0-3) Neutrophils # (Auto) 5.7 x10^3uL (1.8-7.7) Lymphocytes # (Auto) 0.9 x10^3/uL (1.0-4.8) Monocytes # (Auto) 1.2 x10^3/uL (0.0-1.1) Eosinophils # (Auto) 0.0 x10^3/uL (0.0-0.7) Basophils # (Auto) 0.0 x10^3/uL (0.0-0.2) Sodium Level 130 mmol/L (136-145) Potassium Level 3.7 mmol/L (3.5-5.1) Chloride Level 99 mmol/L (98-107) Carbon Dioxide Level 17 mmol/L (21-32) Anion Gap 14 (6-14) Blood Urea Nitrogen 38 mg/dL (8-26) Creatinine 4.0 mg/dL (0.7-1.3) Estimated GFR (Cockcroft-Gault) 18.9 BUN/Creatinine Ratio 10 (6-20) Glucose Level 73 mg/dL (70-99) Calcium Level 7.1 mg/dL (8.5-10.1) Assessment and Plan Assessmemt and Plan Problems Medical Problems: (1) Anemia Status: Acute (2) Dehydration Status: Acute (3) Hyperbilirubinemia Status: Acute (4) Liver failure Status: Acute (5) Neuropathy Status: Acute Problems: Comment Review of Relevant I have reviewed the following items luigi (where applicable) has been applied. Labs Laboratory Tests Test 09/19/16 05:30 09/20/16 08:55 White Blood Count 8.1 x10^3/uL (4.0-11.0) 7.9 x10^3/uL (4.0-11.0) Red Blood Count 3.39 x10^6/uL (4.30-5.70) 3.03 x10^6/uL (4.30-5.70) Hemoglobin 9.1 g/dL (13.0-17.5) 8.1 g/dL (13.0-17.5) Hematocrit 26.8 % (39.0-53.0) 23.9 % (39.0-53.0) Mean Corpuscular Volume 79 fL (79-100) 79 fL (79-100) Mean Corpuscular Hemoglobin 27 pg (25-35) 27 pg (25-35) Mean Corpuscular Hemoglobin Concent 34 g/dL (31-37) 34 g/dL (31-37) Red Cell Distribution Width 19.7 % (11.5-14.5) 19.5 % (11.5-14.5) Platelet Count 76 x10^3/uL (140-400) 62 x10^3/uL (140-400) Neutrophils (%) (Auto) 76 % (31-73) 72 % (31-73) Lymphocytes (%) (Auto) 6 % (24-48) 12 % (24-48) Monocytes (%) (Auto) 17 % (0-9) 16 % (0-9) Eosinophils (%) (Auto) 1 % (0-3) 1 % (0-3) Basophils (%) (Auto) 1 % (0-3) 1 % (0-3) Neutrophils # (Auto) 6.2 x10^3uL (1.8-7.7) 5.7 x10^3uL (1.8-7.7) Lymphocytes # (Auto) 0.5 x10^3/uL (1.0-4.8) 0.9 x10^3/uL (1.0-4.8) Monocytes # (Auto) 1.3 x10^3/uL (0.0-1.1) 1.2 x10^3/uL (0.0-1.1) Eosinophils # (Auto) 0.0 x10^3/uL (0.0-0.7) 0.0 x10^3/uL (0.0-0.7) Basophils # (Auto) 0.0 x10^3/uL (0.0-0.2) 0.0 x10^3/uL (0.0-0.2) Prothrombin Time 40.9 SEC (11.7-14.0) Prothromb Time International Ratio 4.6 (0.8-1.1) Sodium Level 131 mmol/L (136-145) 130 mmol/L (136-145) Potassium Level 3.8 mmol/L (3.5-5.1) 3.7 mmol/L (3.5-5.1) Chloride Level 98 mmol/L (98-107) 99 mmol/L (98-107) Carbon Dioxide Level 20 mmol/L (21-32) 17 mmol/L (21-32) Anion Gap 13 (6-14) 14 (6-14) Blood Urea Nitrogen 34 mg/dL (8-26) 38 mg/dL (8-26) Creatinine 3.0 mg/dL (0.7-1.3) 4.0 mg/dL (0.7-1.3) Estimated GFR (Cockcroft-Gault) 26.3 18.9 BUN/Creatinine Ratio 11 (6-20) 10 (6-20) Glucose Level 83 mg/dL (70-99) 73 mg/dL (70-99) Calcium Level 6.6 mg/dL (8.5-10.1) 7.1 mg/dL (8.5-10.1) Total Bilirubin 35.0 mg/dL (0.2-1.0) Aspartate Amino Transf (AST/SGOT) 107 U/L (15-37) Alanine Aminotransferase (ALT/SGPT) 33 U/L (16-63) Alkaline Phosphatase 102 U/L (46-116) Total Protein 5.5 g/dL (6.4-8.2) Albumin 1.3 g/dL (3.4-5.0) Albumin/Globulin Ratio 0.3 (1.0-1.7) Laboratory Tests Test 09/20/16 08:55 White Blood Count 7.9 x10^3/uL (4.0-11.0) Red Blood Count 3.03 x10^6/uL (4.30-5.70) Hemoglobin 8.1 g/dL (13.0-17.5) Hematocrit 23.9 % (39.0-53.0) Mean Corpuscular Volume 79 fL (79-100) Mean Corpuscular Hemoglobin 27 pg (25-35) Mean Corpuscular Hemoglobin Concent 34 g/dL (31-37) Red Cell Distribution Width 19.5 % (11.5-14.5) Platelet Count 62 x10^3/uL (140-400) Neutrophils (%) (Auto) 72 % (31-73) Lymphocytes (%) (Auto) 12 % (24-48) Monocytes (%) (Auto) 16 % (0-9) Eosinophils (%) (Auto) 1 % (0-3) Basophils (%) (Auto) 1 % (0-3) Neutrophils # (Auto) 5.7 x10^3uL (1.8-7.7) Lymphocytes # (Auto) 0.9 x10^3/uL (1.0-4.8) Monocytes # (Auto) 1.2 x10^3/uL (0.0-1.1) Eosinophils # (Auto) 0.0 x10^3/uL (0.0-0.7) Basophils # (Auto) 0.0 x10^3/uL (0.0-0.2) Sodium Level 130 mmol/L (136-145) Potassium Level 3.7 mmol/L (3.5-5.1) Chloride Level 99 mmol/L (98-107) Carbon Dioxide Level 17 mmol/L (21-32) Anion Gap 14 (6-14) Blood Urea Nitrogen 38 mg/dL (8-26) Creatinine 4.0 mg/dL (0.7-1.3) Estimated GFR (Cockcroft-Gault) 18.9 BUN/Creatinine Ratio 10 (6-20) Glucose Level 73 mg/dL (70-99) Calcium Level 7.1 mg/dL (8.5-10.1) Microbiology 09/16/16 Blood Culture - Preliminary, Resulted 09/16/16 Blood Culture Result 1 (CHRISSY) - Preliminary, Resulted Medications Current Medications Sodium Chloride 1,000 ml @ 1,000 mls/hr Q1H IV Last administered on 09/16/16t 12:59; Start 09/16/16 at 12:17; Stop 09/16/16 at 13:16; Status DC Sodium Chloride (Normal Saline Flush) 10 ml QSHIFT PRN IV AFTER MEDS AND BLOOD DRAWS Last administered on 09/16/16 13:00; Start 09/16/16 at 12:30 Ondansetron HCl (Zofran) 4 mg PRN Q8HRS PRN IV NAUSEA/VOMITING; Start 09/16/16 at 15:45; Stop 09/17/16 at 15:44; Status DC Sodium Chloride 1,000 ml @ 50 mls/hr Q20H IV Last administered on 09/17/16 10 :38; Start 09/16/16 at 15:40; Stop 09/17/16 at 15:39; Status DC Acetaminophen (Tylenol) 650 mg PRN Q6HRS PRN PO FEVER Last administered on 09/18 08:33; Start 09/16/16 at 16:15 Ondansetron HCl (Zofran) 4 mg PRN Q6HRS PRN IV NAUSEA/VOMITING; Start 09/16/16 at 16:15 Morphine Sulfate 2 mg PRN Q2HR PRN IV PAIN; Start 09/16/16 at 16:15; Stop 09/17 at 12:52; Status DC Tramadol HCl (Ultram) 50 mg PRN Q6HRS PRN PO MILD - MODERATE PAIN Last administered on 09/20/16 06:22; Start 09/16/16 at 16:15 Hydralazine HCl (Apresoline) 10 mg PRN Q4HRS PRN IVP ELEVATED BP, SEE COMMENTS ; Start 09/16/16 at 16:15 Docusate Sodium (Colace) 100 mg PRN DAILY PRN PO CONSTIPATION; Start 09/16/16 at 16:15 Enoxaparin Sodium (Lovenox 40mg Syringe) 40 mg QHS SQ ; Start 09/16/16 at 21:00 ; Stop 09/16/16 at 21:00; Status DC Multivitamins 10 ml/Thiamine HCl 100 mg/Folic Acid 1 mg/Sodium Chloride 1,011.2 ml @ 100 mls/ hr DAILY IV Last administered on 09/19/16 10:04; Start at 14:00; Stop 09/20/16 at 21:00 Phytonadione (Mephyton) 10 mg DAILY PO Last administered on 09/19/16 10:09; Start 09/17/16 at 18:30 Fludrocortisone Acetate (Florinef) 0.1 mg BID PO Last administered on 10:09; Start 09/17/16 at 21:00 Potassium Chloride (Klor-Con) 40 meq 1X ONCE PO Last administered on 07:16; Start 09/18/16 at 07:00; Stop 09/18/16 at 07:01; Status DC Potassium Chloride (Klor-Con) 40 meq 1X ONCE PO Last administered on 12:04; Start 09/18/16 at 12:00; Stop 09/18/16 at 12:01; Status DC Lorazepam (Ativan) 2 mg PRN Q1HR PRN IV For CIWA 8-14 Last administered on 09/19 18:08; Start 09/18/16 at 12:30 Lorazepam (Ativan) 4 mg PRN Q1HR PRN IV For CIWA 15 or greater; Start 09/18/16 at 12:30 Lorazepam (Ativan) 1 mg BID PO Last administered on 09/19/16 10:09; Start at 12:30 Lidocaine (Lidoderm) 1 patch DAILY TD Last administered on 09/18/16 13:46; Start 09/18/16 at 13:00 Oxycodone HCl (Roxicodone) 5 mg PRN Q6HRS PRN PO SEVERE PAIN; Start 09/18/16 at 13:00 Phytonadione (Vitamin K) 10 mg 1X ONCE SQ Last administered on 09/18/16 18:20 ; Start 09/18/16 at 15:45; Stop 09/18/16 at 15:46; Status DC Lactulose 20 gm DAILY PO Last administered on 09/19/16 10:10; Start 09/18/16 at 21:00 Sodium Chloride 500 ml @ 500 mls/hr 1X ONCE IV Last administered on 04:26; Start 09/19/16 at 04:30; Stop 09/19/16 at 05:29; Status DC Piperacillin Sod/ Tazobactam Sod (Zosyn Per Pharmacy) 1 each PRN DAILY PRN [facility] SEE COMMENTS; Start 09/19/16 at 11:30 Sodium Chloride 1,000 ml @ 150 mls/hr 1X ONCE IV Last administered on 12:06; Start 09/19/16 at 11:45; Stop 09/19/16 at 18:24; Status DC Piperacillin Sod/ Tazobactam Sod 2.25 gm/Sodium Chloride 50 ml @ 100 mls/hr Q6HRS IV Last administered on 09/20/16 05:57; Start 09/19/16 at 12:00 Multivitamins (Thera M Plus) 1 tab DAILY PO ; Start 09/21/16 at 09:00 Folic Acid (Folic Acid) 1 mg DAILY PO ; Start 09/21/16 at 09:00 Thiamine Mononitrate (Vitamin B-1) 100 mg DAILY PO ; Start 09/21/16 at 09:00 Sodium Chloride 1,000 ml @ 1,000 mls/hr 1X ONCE IV Last administered on 08:51; Start 09/20/16 at 08:30; Stop 09/20/16 at 09:29 Active Scripts Active Reported No Known Medications Prior To Admisstion (Info) Each 1 Each Vitals/I & O Vital Sign - Last 24 Hours 09/19/16 09/19/16 09/19/16 09/19/16 11:00 12:06 15:00 18:00 Temp 97.6 97.9 97.6 97.9 Pulse 96 97 Resp 18 18 B/P (MAP) 87/60 (69) 97/69 (78) Pulse Ox 98 97 O2 Delivery Room Air Room Air Room Air Room Air 09/19/16 09/19/16 09/19/16 09/20/16 19:00 20:00 23:00 02:57 Temp 97.5 98.9 98.9 97.5 98.9 98.9 Pulse 94 56 96 Resp 18 18 16 B/P (MAP) 90/67 (75) 95/67 (76) 91/61 (71) Pulse Ox 96 98 99 O2 Delivery Room Air Room Air Room Air Room Air 09/20/16 09/20/16 09/20/16 09/20/16 05:11 05:29 06:22 08:43 Pulse 24 24 B/P (MAP) 76/78 (77) 92/69 (77) Pulse Ox 99 O2 Delivery Room Air Room Air Room Air Room Air Intake and Output 09/19/16 09/19/16 09/20/16 15:00 23:00 07:00 Intake Total 850 ml Output Total 0 ml Balance 850 ml Nutrition Consultation Dietary Evaluation: Recommendations by RD: Increase Calorie Intake, Protein supplementation Comments: low Na, high protein diet at d/c added Ensure bid rec mvi and appetite stimulant at d/c Expected Outcomes/Goals: consumption of nutrient dense foods Malnutrition Findings: Food and Nutrition Intake (Sev: <50% est energy req 5days Weight Status: Appropriate Fluid Accumulation (Severe): Severe MARILIN OLSEN MD Sep 20, 2016 09:29
[2016-09-20 09:48] LABS: ALBUMIN 1.2 g/dL (3.4-5.0); ALBUMIN/GLOBULIN RATIO 0.3 (1.0-1.7); TOTAL PROTEIN 5.1 g/dL (6.4-8.2)
[2016-09-20 09:52] LABS: PROTHROMBIN TIME PATIENT 49.2 SEC (11.7-14.0)
[2016-09-20] MEDS: MULTIVIT INFUSN,ADULT 4,VIT K 10 ML, THIAMINE 100 MG, FOLIC ACID 1 MG in IV NORMAL SALI... IV SCH (09:54)
[2016-09-20 09:59] LABS: INR 5.9 (0.8-1.1)
[2016-09-20] MEDS: rifAXIMin 550 MG TABLET PO SCH ×2 (10:00→20:27)
--- NOTE | 2016-09-20 10:25 | PDOC ---
G I PROGRESS NOTE Reason for Follow-up Liver disease Subjective Responding only to noxious stimuli. Non-verbal. Objective Problems with urine output/nance noted. Per Dr. Stoll, [facility] has declined considering for transplant. Physical Exam Intensely icteric. Lungs clear. RRR Abdomen protuberant; has umbilical hernia and ascites in this. Review of Relevant I have reviewed the following items luigi (where applicable) has been applied. Labs Laboratory Tests Test 09/19/16 05:30 09/20/16 08:55 09/20/16 09:30 White Blood Count 8.1 x10^3/uL (4.0-11.0) 7.9 x10^3/uL (4.0-11.0) Red Blood Count 3.39 x10^6/uL (4.30-5.70) 3.03 x10^6/uL (4.30-5.70) Hemoglobin 9.1 g/dL (13.0-17.5) 8.1 g/dL (13.0-17.5) Hematocrit 26.8 % (39.0-53.0) 23.9 % (39.0-53.0) Mean Corpuscular Volume 79 fL (79-100) 79 fL (79-100) Mean Corpuscular Hemoglobin 27 pg (25-35) 27 pg (25-35) Mean Corpuscular Hemoglobin Concent 34 g/dL (31-37) 34 g/dL (31-37) Red Cell Distribution Width 19.7 % (11.5-14.5) 19.5 % (11.5-14.5) Platelet Count 76 x10^3/uL (140-400) 62 x10^3/uL (140-400) Neutrophils (%) (Auto) 76 % (31-73) 72 % (31-73) Lymphocytes (%) (Auto) 6 % (24-48) 12 % (24-48) Monocytes (%) (Auto) 17 % (0-9) 16 % (0-9) Eosinophils (%) (Auto) 1 % (0-3) 1 % (0-3) Basophils (%) (Auto) 1 % (0-3) 1 % (0-3) Neutrophils # (Auto) 6.2 x10^3uL (1.8-7.7) 5.7 x10^3uL (1.8-7.7) Lymphocytes # (Auto) 0.5 x10^3/uL (1.0-4.8) 0.9 x10^3/uL (1.0-4.8) Monocytes # (Auto) 1.3 x10^3/uL (0.0-1.1) 1.2 x10^3/uL (0.0-1.1) Eosinophils # (Auto) 0.0 x10^3/uL (0.0-0.7) 0.0 x10^3/uL (0.0-0.7) Basophils # (Auto) 0.0 x10^3/uL (0.0-0.2) 0.0 x10^3/uL (0.0-0.2) Prothrombin Time 40.9 SEC (11.7-14.0) 49.2 SEC (11.7-14.0) Prothromb Time International Ratio 4.6 (0.8-1.1) 5.9 (0.8-1.1) Sodium Level 131 mmol/L (136-145) 130 mmol/L (136-145) Potassium Level 3.8 mmol/L (3.5-5.1) 3.7 mmol/L (3.5-5.1) Chloride Level 98 mmol/L (98-107) 99 mmol/L (98-107) Carbon Dioxide Level 20 mmol/L (21-32) 17 mmol/L (21-32) Anion Gap 13 (6-14) 14 (6-14) Blood Urea Nitrogen 34 mg/dL (8-26) 38 mg/dL (8-26) Creatinine 3.0 mg/dL (0.7-1.3) 4.0 mg/dL (0.7-1.3) Estimated GFR (Cockcroft-Gault) 26.3 18.9 BUN/Creatinine Ratio 11 (6-20) 10 (6-20) Glucose Level 83 mg/dL (70-99) 73 mg/dL (70-99) Calcium Level 6.6 mg/dL (8.5-10.1) 7.1 mg/dL (8.5-10.1) Total Bilirubin 35.0 mg/dL (0.2-1.0) Aspartate Amino Transf (AST/SGOT) 107 U/L (15-37) Alanine Aminotransferase (ALT/SGPT) 33 U/L (16-63) Alkaline Phosphatase 102 U/L (46-116) Total Protein 5.5 g/dL (6.4-8.2) Albumin 1.3 g/dL (3.4-5.0) Albumin/Globulin Ratio 0.3 (1.0-1.7) Ammonia 63 mcmol/L (11-34) Laboratory Tests Test 09/20/16 08:55 09/20/16 09:30 White Blood Count 7.9 x10^3/uL (4.0-11.0) Red Blood Count 3.03 x10^6/uL (4.30-5.70) Hemoglobin 8.1 g/dL (13.0-17.5) Hematocrit 23.9 % (39.0-53.0) Mean Corpuscular Volume 79 fL (79-100) Mean Corpuscular Hemoglobin 27 pg (25-35) Mean Corpuscular Hemoglobin Concent 34 g/dL (31-37) Red Cell Distribution Width 19.5 % (11.5-14.5) Platelet Count 62 x10^3/uL (140-400) Neutrophils (%) (Auto) 72 % (31-73) Lymphocytes (%) (Auto) 12 % (24-48) Monocytes (%) (Auto) 16 % (0-9) Eosinophils (%) (Auto) 1 % (0-3) Basophils (%) (Auto) 1 % (0-3) Neutrophils # (Auto) 5.7 x10^3uL (1.8-7.7) Lymphocytes # (Auto) 0.9 x10^3/uL (1.0-4.8) Monocytes # (Auto) 1.2 x10^3/uL (0.0-1.1) Eosinophils # (Auto) 0.0 x10^3/uL (0.0-0.7) Basophils # (Auto) 0.0 x10^3/uL (0.0-0.2) Sodium Level 130 mmol/L (136-145) Potassium Level 3.7 mmol/L (3.5-5.1) Chloride Level 99 mmol/L (98-107) Carbon Dioxide Level 17 mmol/L (21-32) Anion Gap 14 (6-14) Blood Urea Nitrogen 38 mg/dL (8-26) Creatinine 4.0 mg/dL (0.7-1.3) Estimated GFR (Cockcroft-Gault) 18.9 BUN/Creatinine Ratio 10 (6-20) Glucose Level 73 mg/dL (70-99) Calcium Level 7.1 mg/dL (8.5-10.1) Prothrombin Time 49.2 SEC (11.7-14.0) Prothromb Time International Ratio 5.9 (0.8-1.1) Ammonia 63 mcmol/L (11-34) Microbiology 09/16/16 Blood Culture - Preliminary, Resulted 09/16/16 Blood Culture Result 1 (CHRISSY) - Preliminary, Resulted Worsening INR. Ammonia up a little. Medications Current Medications Sodium Chloride 1,000 ml @ 1,000 mls/hr Q1H IV Last administered on 09/16/16 12:59; Start 09/16/16 at 12:17; Stop 09/16/16 at 13:16; Status DC Sodium Chloride (Normal Saline Flush) 10 ml QSHIFT PRN IV AFTER MEDS AND BLOOD DRAWS Last administered on 09/16/16 13:00; Start 09/16/16 at 12:30 Ondansetron HCl (Zofran) 4 mg PRN Q8HRS PRN IV NAUSEA/VOMITING; Start 09/16/16 at 15:45; Stop 09/17/16 at 15:44; Status DC Sodium Chloride 1,000 ml @ 50 mls/hr Q20H IV Last administered on 09/17/16 10 :38; Start 09/16/16 at 15:40; Stop 09/17/16 at 15:39; Status DC Acetaminophen (Tylenol) 650 mg PRN Q6HRS PRN PO FEVER Last administered on 09/18 08:33; Start 09/16/16 at 16:15 Ondansetron HCl (Zofran) 4 mg PRN Q6HRS PRN IV NAUSEA/VOMITING; Start 09/16/16 at 16:15 Morphine Sulfate 2 mg PRN Q2HR PRN IV PAIN; Start 09/16/16 at 16:15; Stop 09/17 at 12:52; Status DC Tramadol HCl (Ultram) 50 mg PRN Q6HRS PRN PO MILD - MODERATE PAIN Last administered on 09/20/16 06:22; Start 09/16/16 at 16:15 Hydralazine HCl (Apresoline) 10 mg PRN Q4HRS PRN IVP ELEVATED BP, SEE COMMENTS ; Start 09/16/16 at 16:15 Docusate Sodium (Colace) 100 mg PRN DAILY PRN PO CONSTIPATION; Start 09/16/16 at 16:15 Enoxaparin Sodium (Lovenox 40mg Syringe) 40 mg QHS SQ ; Start 09/16/16 at 21:00 ; Stop 09/16/16 at 21:00; Status DC Multivitamins 10 ml/Thiamine HCl 100 mg/Folic Acid 1 mg/Sodium Chloride 1,011.2 ml @ 100 mls/ hr DAILY IV Last administered on 09/20/16 09:54; Start at 14:00; Stop 09/20/16 at 21:00 Phytonadione (Mephyton) 10 mg DAILY PO Last administered on 09/19/16 10:09; Start 09/17/16 at 18:30 Fludrocortisone Acetate (Florinef) 0.1 mg BID PO Last administered on 10:09; Start 09/17/16 at 21:00 Potassium Chloride (Klor-Con) 40 meq 1X ONCE PO Last administered on 07:16; Start 09/18/16 at 07:00; Stop 09/18/16 at 07:01; Status DC Potassium Chloride (Klor-Con) 40 meq 1X ONCE PO Last administered on 12:04; Start 09/18/16 at 12:00; Stop 09/18/16 at 12:01; Status DC Lorazepam (Ativan) 2 mg PRN Q1HR PRN IV For CIWA 8-14 Last administered on 09/19 18:08; Start 09/18/16 at 12:30 Lorazepam (Ativan) 4 mg PRN Q1HR PRN IV For CIWA 15 or greater; Start 09/18/16 at 12:30 Lorazepam (Ativan) 1 mg BID PO Last administered on 09/19/16 10:09; Start at 12:30 Lidocaine (Lidoderm) 1 patch DAILY TD Last administered on 09/18/16 13:46; Start 09/18/16 at 13:00 Oxycodone HCl (Roxicodone) 5 mg PRN Q6HRS PRN PO SEVERE PAIN; Start 09/18/16 at 13:00 Phytonadione (Vitamin K) 10 mg 1X ONCE SQ Last administered on 09/18/16 18:20 ; Start 09/18/16 at 15:45; Stop 09/18/16 at 15:46; Status DC Lactulose 20 gm DAILY PO Last administered on 09/19/16 10:10; Start 09/18/16 at 21:00 Sodium Chloride 500 ml @ 500 mls/hr 1X ONCE IV Last administered on 04:26; Start 09/19/16 at 04:30; Stop 09/19/16 at 05:29; Status DC Piperacillin Sod/ Tazobactam Sod (Zosyn Per Pharmacy) 1 each PRN DAILY PRN MC SEE COMMENTS; Start 09/19/16 at 11:30 Sodium Chloride 1,000 ml @ 150 mls/hr 1X ONCE IV Last administered on 12:06; Start 09/19/16 at 11:45; Stop 09/19/16 at 18:24; Status DC Piperacillin Sod/ Tazobactam Sod 2.25 gm/Sodium Chloride 50 ml @ 100 mls/hr Q6HRS IV Last administered on 09/20/16 05:57; Start 09/19/16 at 12:00 Multivitamins (Thera M Plus) 1 tab DAILY PO ; Start 09/21/16 at 09:00 Folic Acid (Folic Acid) 1 mg DAILY PO ; Start 09/21/16 at 09:00 Thiamine Mononitrate (Vitamin B-1) 100 mg DAILY PO ; Start 09/21/16 at 09:00 Sodium Chloride 1,000 ml @ 1,000 mls/hr 1X ONCE IV Last administered on 08:51; Start 09/20/16 at 08:30; Stop 09/20/16 at 09:29; Status DC Rifaximin (Xifaxan) 550 mg Q12HR PO ; Start 09/20/16 at 10:00 Active Scripts Active Reported No Known Medications Prior To Admisstion (Info) Each 1 Each Vitals/I & O Vital Sign - Last 24 Hours 09/19/16 09/19/16 09/19/16 09/19/16 11:00 12:06 15:00 18:00 Temp 97.6 97.9 97.6 97.9 Pulse 96 97 Resp 18 18 B/P (MAP) 87/60 (69) 97/69 (78) Pulse Ox 98 97 O2 Delivery Room Air Room Air Room Air Room Air 09/19/16 09/19/16 09/19/16 09/20/16 19:00 20:00 23:00 02:57 Temp 97.5 98.9 98.9 97.5 98.9 98.9 Pulse 94 56 96 Resp 18 18 16 B/P (MAP) 90/67 (75) 95/67 (76) 91/61 (71) Pulse Ox 96 98 99 O2 Delivery Room Air Room Air Room Air Room Air 09/20/16 09/20/16 09/20/16 09/20/16 05:11 05:29 06:22 07:00 Temp 97.6 97.6 Pulse 24 24 94 Resp 22 B/P (MAP) 76/78 (77) 92/69 (77) 76/56 (63) Pulse Ox 99 98 O2 Delivery Room Air Room Air Room Air Room Air 09/20/16 08:43 O2 Delivery Room Air Intake and Output 09/19/16 09/19/16 09/20/16 15:00 23:00 07:00 Intake Total 850 ml Output Total 0 ml Balance 850 ml Problem List Problems Medical Problems: (1) Anemia Status: Acute (2) Dehydration Status: Acute (3) Hyperbilirubinemia Status: Acute (4) Liver failure Status: Acute (5) Neuropathy Status: Acute Assessment Liver seems to be actively failing; likely severe alcoholic hepatitis. Has not responded to parental vit. K, so markedly impaired synthetic function. Plan of Care: Continue current Tx, Mgmt Plan of Care Note Discussed with Dr. Stoll; comfort/palliative measures would not be unreasonable as we have nothing specific aside from transplant which would reliably reverse issue. SUDHAKAR HORNER MD Sep 20, 2016 10:25
[2016-09-20 11:00] LABS: TOTAL BILIRUBIN 35.6 mg/dL (0.2-1.0)
--- NOTE | 2016-09-20 11:19 | PDOC ---
Infectious Disease Note Subjective Subjective No urine output Unable to pass Holland. Await gen surgery eval [facility] declined transfer for higher level care ROS ROS unobtainable Vital Sign Vital Signs Vital Signs Date Time Temp Pulse Resp B/P (MAP) Pulse Ox O2 Delivery O2 Flow Rate FiO2 09/20/16 08:43 Room Air 09/20/16 07:00 97.6 94 22 76/56 (63) 98 97.6 Physical Exam PHYSICAL EXAM GENERAL: Somnolent HEENT: Sclerae icterus. Oral mucosa pink, dry. Poor dentition. LUNGS: Diminished aeration in the bases, nonlabored. HEART: Normal S1, S2. ABDOMEN: Distended. Bowel sounds present. no grimace or guarding to palpation EXTREMITIES: Bilateral lower extremity edema, no cyanosis. SKIN: Without rash. Jaundiced Labs Lab Laboratory Tests Test 09/20/16 08:55 09/20/16 09:30 White Blood Count 7.9 x10^3/uL (4.0-11.0) Red Blood Count 3.03 x10^6/uL (4.30-5.70) Hemoglobin 8.1 g/dL (13.0-17.5) Hematocrit 23.9 % (39.0-53.0) Mean Corpuscular Volume 79 fL (79-100) Mean Corpuscular Hemoglobin 27 pg (25-35) Mean Corpuscular Hemoglobin Concent 34 g/dL (31-37) Red Cell Distribution Width 19.5 % (11.5-14.5) Platelet Count 62 x10^3/uL (140-400) Neutrophils (%) (Auto) 72 % (31-73) Lymphocytes (%) (Auto) 12 % (24-48) Monocytes (%) (Auto) 16 % (0-9) Eosinophils (%) (Auto) 1 % (0-3) Basophils (%) (Auto) 1 % (0-3) Neutrophils # (Auto) 5.7 x10^3uL (1.8-7.7) Lymphocytes # (Auto) 0.9 x10^3/uL (1.0-4.8) Monocytes # (Auto) 1.2 x10^3/uL (0.0-1.1) Eosinophils # (Auto) 0.0 x10^3/uL (0.0-0.7) Basophils # (Auto) 0.0 x10^3/uL (0.0-0.2) Sodium Level 130 mmol/L (136-145) Potassium Level 3.7 mmol/L (3.5-5.1) Chloride Level 99 mmol/L (98-107) Carbon Dioxide Level 17 mmol/L (21-32) Anion Gap 14 (6-14) Blood Urea Nitrogen 38 mg/dL (8-26) Creatinine 4.0 mg/dL (0.7-1.3) Estimated GFR (Cockcroft-Gault) 18.9 BUN/Creatinine Ratio 10 (6-20) Glucose Level 73 mg/dL (70-99) Calcium Level 7.1 mg/dL (8.5-10.1) Total Bilirubin 35.6 mg/dL (0.2-1.0) Aspartate Amino Transf (AST/SGOT) 147 U/L (15-37) Alanine Aminotransferase (ALT/SGPT) 28 U/L (16-63) Alkaline Phosphatase 158 U/L (46-116) Total Protein 5.1 g/dL (6.4-8.2) Albumin 1.2 g/dL (3.4-5.0) Albumin/Globulin Ratio 0.3 (1.0-1.7) Prothrombin Time 49.2 SEC (11.7-14.0) Prothromb Time International Ratio 5.9 (0.8-1.1) Ammonia 63 mcmol/L (11-34) Micro BLOOD CULTURE Final GRAM NEGATIVE RODS, IN 1 OF 2 BOTTLES, ONE SET DRAWN. Objective Assessment GNR sepsis with hypotension, POA Lactic acidosis Encephalopathy Acute renal failure, worsening Alcoholic liver disease with hyperbilirubinemia, coagulopathy and thrombocytopenia Anemia, s/p PRBCs 09/18 Plan Plan of Care Zosyn Await GNR ID Monitor lab values Await gen surgery for Holland placement Poor prognosis Await palliative care meeting Patient seen and examined. Chart reviewed in detail. Case discussed with SNIPPER. Agree with above CK OLIVARES APRN Sep 20, 2016 11:19 DIANNA BUSH MD Sep 20, 2016 17:53
--- NOTE | 2016-09-20 12:24 | RAD ---
Indication: MARTIN Grayscale imaging targeted to the kidneys was performed. The right kidney measures 10.4 x 5.8 x 4.5 cm. No hydronephrosis or mass is seen. The left kidney measures 11 x 3.8 x 4.9 cm. No hydronephrosis or mass is seen. Incidental note was made during the examination of increased attenuation of the ultrasound beam by the visualized liver compatible with fatty infiltration. Moderate abdominal ascites was also noted. The patient has a Holland catheter. The urinary bladder, as a result, is collapsed and poorly evaluated with ultrasound. IMPRESSION: Normal morphologic appearance of the kidneys
[2016-09-20] MEDS ORDERED: NOREPINEPHRIN PREMIX 250 ML IV ONE (19:00)
[2016-09-20] MEDS: NOREPINEPHRIN PREMIX 250 ML IV PRN (20:00)
--- NOTE | 2016-09-20 22:20 | CONS ---
DATE OF CONSULTATION: PRIMARY PHYSICIAN: Dr. Stoll. REASON FOR CONSULTATION: Acute renal failure. HISTORY OF PRESENT ILLNESS: The patient is a 55-year-old -[place] gentleman with known history of bipolar depression as documented in ER notes. He presented to the ER with generalized weakness, which have progressively gotten worse for about a week or so. He lives with his mom. The patient is currently sedated with Ativan that he received yesterday night and is unable to provide much in terms of history. Hence history was gleaned by reviewing electronic records as available. He is noted to have poor p.o. intake in the recent past. He has had some lower extremity weakness. He is known to have liver disease. It is unclear to me where this was treated or has been evaluated for. He is known to have daily alcohol use. There are no documented fevers, chills, nausea, vomiting on presentation other than chronic cough with smoking. He was noted to be obviously jaundiced. He is felt to have alcoholic hepatitis. After we were consulted for this, Holland catheter was attempted on multiple occasions including , it is reported that this was not able to traverse and hence we do not know what his true urine output is. He did receive blood transfusions. He does have some ascites currently. He is also known to have positive blood cultures at presentation with Gram-negative rods. PAST MEDICAL HISTORY: Positive for cholecystectomy, bipolar disorder, alcoholism, tobacco use, possible liver failure, appendectomy. FAMILY HISTORY: Positive for lung cancer, positive for hypertension. SOCIAL HISTORY: The patient uses heavy alcohol and smokes about a pack per day. For rest of details, see electronic records. AMANDA EDEN MD DR: JERMAN/mauricio JOB#: [id number] / [id number]
[2016-09-21] VITALS (68 sets, daily range): BP systolic 71–110; BP diastolic 47–68
[2016-09-21] MEDS: PIPERACILLIN/TAZOBACTAM 2.25 GM in IV NORMAL SALINE 50ML 50 ML IV SCH ×3 (05:43→21:40)
[2016-09-21 06:53] LABS: BASO # 0.1 x10^3/uL (0.0-0.2); BASO % 1 % (0-3); EOS % 1 % (0-3); HEMATOCRIT 25.8 % (39.0-53.0); HEMOGLOBIN 8.7 g/dL (13.0-17.5); LYMPH % 7 % (24-48); MEAN CORPUSCULAR HEMOGLOBIN 27 pg (25-35); MEAN CORPUSCULAR HGB CONC 34 g/dL (31-37); MEAN CORPUSCULAR VOLUME 80 fL (79-100); MONO % 15 % (0-9); NEUT % 78 % (31-73); PLATELET COUNT 81 x10^3/uL (140-400); RED BLOOD COUNT 3.24 x10^6/uL (4.30-5.70); RED CELL DISTRIBUTION WIDTH 20.4 % (11.5-14.5); WHITE BLOOD COUNT 14.5 x10^3/uL (4.0-11.0)
[2016-09-21 07:05] LABS: ALBUMIN 1.2 g/dL (3.4-5.0); ALBUMIN/GLOBULIN RATIO 0.3 (1.0-1.7); CALCIUM 6.8 mg/dL (8.5-10.1); CREATININE 4.3 mg/dL (0.7-1.3); GFR 17.4; POTASSIUM 4.4 mmol/L (3.5-5.1)
[2016-09-21 07:10] LABS: PROTHROMBIN TIME PATIENT 56.6 SEC (11.7-14.0)
[2016-09-21 07:15] LABS: % SAT IRON 87 % (15-34); IRON,SERUM 71 ug/dL (65-175)
[2016-09-21 07:19] LABS: INR 7.1 (0.8-1.1)
[2016-09-21 07:55] LABS: TOTAL PROTEIN 5.6 g/dL (6.4-8.2)
[2016-09-21 08:33] LABS: ANISOCYTOSIS MOD; BURR CELLS FEW; NUCLEATED RBC 4; PLT ESTIMATE DECREASED (ADEQUATE); TARGET CELLS MOD
[2016-09-21] MEDS: LORazepam 1 MG TABLET PO SCH ×2 (08:34→21:00)
[2016-09-21] MEDS ORDERED: LIDOCAINE 1% / SOD BICARB 8.4% 20 ML VIAL. IJ ONE (08:45)
[2016-09-21] MEDS ORDERED: MULTIVITAMIN with MINERAL TABLET. PO SCH (09:00)
[2016-09-21] MEDS: LACTULOSE 20 GM/30 ML SOLUTION. PO SCH (09:00)
[2016-09-21] MEDS: rifAXIMin 550 MG TABLET PO SCH ×2 (09:00→21:00)
[2016-09-21] MEDS ORDERED: FOLIC ACID 1 MG TABLET. PO SCH (09:00)
[2016-09-21] MEDS: LIDOCAINE (700MG/PATCH) PATCH. TD SCH ×2 (09:00→09:40)
[2016-09-21] MEDS ORDERED: THIAMINE 100 MG TABLET. PO SCH (09:00)
[2016-09-21] MEDS: FLUDROCORTISONE 0.1 MG TABLET PO SCH ×2 (09:00→21:00)
[2016-09-21] MEDS: PHYTONADIONE (VIT K1) IV 5 MG in IV NORMAL SALINE 50ML 50 ML IV SCH (09:40)
[2016-09-21] MEDS: NOREPINEPHRIN PREMIX 250 ML IV PRN ×2 (09:42→17:50)
--- NOTE | 2016-09-21 10:01 | RAD ---
Procedure: Ultrasound ally guided placement of right internal jugular central venous catheter. 09/21/2016 9:57 AM Clinical Indication: limited peripheral access Anesthesia: Local only Consent: The procedure was explained in its entirety to the patient or the patients designated community relations representative by a member of the treatment team, including a discussion of the risks, benefits and commonly accepted alternatives to the procedure, as well as the expected consequences of no therapy whatsoever. Discussion of the risks included, but was not limited to, those that are most frequent and those that are rare but possibly severe or life-threatening, as well as the possibility of unforeseen complications. Sterility: All elements of maximal sterile barrier technique including the use of a cap, mask, sterile gown, sterile gloves, large sterile sheet, appropriate hand hygiene, and 2% chlorhexidine for cutaneous antisepsis (or acceptable alternative antiseptic per current guidelines) were followed for this procedure. Technique and Findings: Following informed consent, the patient was prepped and draped in the usual sterile fashion. Ultrasound interrogation of the right neck revealed patency and compressibility of the right internal jugular vein. A 21-gauge micropuncture was then used to gain access to this vein under ultrasound guidance. A hard copy ultrasound image was recorded. The needle was exchanged over a wire for a sheath. A J-wire was advanced centrally, over which, following dilatation a triple-lumen central venous catheter was advanced centrally. Catheter was found to flush and aspirate normally. Catheter secured in place and a sterile dressing was applied. Since the chest radiograph demonstrates appropriate positioning. No immediate complications are identified. Impression: Successful ultrasound guided placement of a triple-lumen central venous catheter
--- NOTE | 2016-09-21 10:03 | RAD ---
Portable chest, 09/21/2016: History: Check central line placement Comparison is made to a study from 09/16/2016. A right jugular central venous catheter has been inserted extending into the mid right atrium. The depth of inspiration is poor. The heart appears to be within normal limits in size. There is now a moderate left basilar opacity obscuring the hemidiaphragm compatible with infiltrate. A component of pleural fluid cannot be excluded. No definite right lung infiltrate is seen. There is no evidence of pneumothorax. IMPRESSION: 1. A right jugular central venous catheter extends into the right atrium. 2. Moderate left basilar infiltrate has developed.
--- NOTE | 2016-09-21 11:10 | PDOC ---
Renal-Progress Notes Subjective Notes Notes CONFUSED History of Present Illness Hx of present illness NOT GETTING BETTER Vitals Vitals Vital Signs Date Time Temp Pulse Resp B/P (MAP) Pulse Ox O2 Delivery O2 Flow Rate FiO2 09/21/16 09:45 102 20 71/50 (57) 97 Room Air 09/21/16 07:15 98.1 98.1 Weight Weight [ ] I.O. Intake and Output Intake and Output 09/21/16 07:00 Intake Total 693 ml Output Total 25 ml Balance 668 ml IV Total 693 ml Output Urine Total 25 ml Labs Labs Laboratory Tests Test 09/21/16 06:20 09/21/16 08:00 White Blood Count 14.5 x10^3/uL (4.0-11.0) Red Blood Count 3.24 x10^6/uL (4.30-5.70) Hemoglobin 8.7 g/dL (13.0-17.5) Hematocrit 25.8 % (39.0-53.0) Mean Corpuscular Volume 80 fL (79-100) Mean Corpuscular Hemoglobin 27 pg (25-35) Mean Corpuscular Hemoglobin Concent 34 g/dL (31-37) Red Cell Distribution Width 20.4 % (11.5-14.5) Platelet Count 81 x10^3/uL (140-400) Neutrophils (%) (Auto) 78 % (31-73) Lymphocytes (%) (Auto) 7 % (24-48) Monocytes (%) (Auto) 15 % (0-9) Eosinophils (%) (Auto) 1 % (0-3) Basophils (%) (Auto) 1 % (0-3) Neutrophils # (Auto) 11.2 x10^3uL (1.8-7.7) Lymphocytes # (Auto) 1.0 x10^3/uL (1.0-4.8) Monocytes # (Auto) 2.1 x10^3/uL (0.0-1.1) Eosinophils # (Auto) 0.1 x10^3/uL (0.0-0.7) Basophils # (Auto) 0.1 x10^3/uL (0.0-0.2) Segmented Neutrophils % 79 % (35-66) Band Neutrophils % 1 % (0-9) Lymphocytes % 8 % (24-48) Atypical Lymphocytes % (Manual) 1 % (0-0) Monocytes % 11 % (0-10) Nucleated Red Blood Cells 4 Dohle Bodies Present Platelet Estimate Decreased (ADEQUATE) Anisocytosis Mod Target Cells Mod [place] Cells Few Prothrombin Time 56.6 SEC (11.7-14.0) Prothromb Time International Ratio 7.1 (0.8-1.1) Sodium Level 133 mmol/L (136-145) Potassium Level 4.4 mmol/L (3.5-5.1) Chloride Level 101 mmol/L (98-107) Carbon Dioxide Level 10 mmol/L (21-32) Anion Gap 22 (6-14) Blood Urea Nitrogen 44 mg/dL (8-26) Creatinine 4.3 mg/dL (0.7-1.3) Estimated GFR (Cockcroft-Gault) 17.4 BUN/Creatinine Ratio 10 (6-20) Glucose Level 87 mg/dL (70-99) Calcium Level 6.8 mg/dL (8.5-10.1) Iron Level 71 ug/dL (65-175) Total Iron Binding Capacity 82 ug/dL (250-450) Iron Saturation 87 % (15-34) Ferritin 9775 ng/mL (26-388) Total Bilirubin 36.0 mg/dL (0.2-1.0) Aspartate Amino Transf (AST/SGOT) 147 U/L (15-37) Alanine Aminotransferase (ALT/SGPT) 38 U/L (16-63) Alkaline Phosphatase 135 U/L (46-116) Total Protein 5.6 g/dL (6.4-8.2) Albumin 1.2 g/dL (3.4-5.0) Albumin/Globulin Ratio 0.3 (1.0-1.7) Glucose (Fingerstick) 99 mg/dL (70-99) Micro Micro Microbiology 09/16/16 Blood Culture - Preliminary, Resulted 09/16/16 Blood Culture Result 1 (CHRISSY) - Preliminary, Resulted 09/19/16 Urine Culture - Preliminary, Resulted 09/19/16 Urine Culture Result 1 (CHRISSY) - Preliminary, Resulted Physical Exam General Appearance: no apparent distress Skin: warm Respiratory: decreased breath sounds Heart: S1S2 Abdomen: soft, bowel sounds present Genitourinary: bladder flat Neurology: confused Assessment Assessment IMP LIVER FAILURE ISRA-DECREASING UO ANEMIA GNR SEPSIS PLAN CONT SUPPORTIVE CARE SUGGEST COMFORT CARE UPDATED MOTHER AT BEDSIDE TOLD HER HE IS NOT A DIALYSIS CANDIDATE ALSO ASKED HER TO CONSIDER DNR CHRIS LÓPEZ MD Sep 21, 2016 11:10
--- NOTE | 2016-09-21 13:18 | PDOC ---
PROGRESS NOTES Chief Complaint Chief Complaint acute hepatic failure Bacteremia today; 1/2, gm neg arminda ASSESSMENT AND PLAN: 1. sepsis shock need pressors, bacteremia 1/2 GNR 2. 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 acute renal failure, IV fluid, consult renal, follow I + O 4. Hypotension 5. Thrombocytopenia. Anemia: microcytic; previous iron labs c/w severe inflammation; cirrhosis 6. Hypoalbuminemia, severe malnutrition: severe. 2/2 liver dz and malnutrition. supplements 7. acute renal on CKD3: creat at baseline 8. Hyponatremia: chronic 9. Bipolar affective disorder (BAD): continue home meds 10. Tobaccoism: cessation counseled AMS with metabolic encephalopathy, multiple organ failure plan; talked to sister at bedside about poor prognosis, She obviously not the one making the decision, said The mother had a meeting yesterday, still waiting for another sister to come to see pt i did tell her very poor prognosis, recommend DNR, PAT consult pending, bilingual case manager on board fu with specialists need higher levaphed on zosyn worsening ISRA with oliguria bicarb for low CO2 poor prognosis History of Present Illness History of Present Illness called transfer center 09/20 asking for transfer to higher level of care. refused pt Mult Med problems, Acute renal failure, Likely ESLD, sepsis and bacteremia, now with oliguria , septic shock with levophed cont lethargic worsening Cr, low BP, higher WBC, oliguria Vitals Vitals Vital Signs Date Time Temp Pulse Resp B/P (MAP) Pulse Ox O2 Delivery O2 Flow Rate FiO2 09/21/16 12:00 Room Air 09/21/16 12:00 98 22 92/56 (68) 97 09/21/16 07:15 98.1 98.1 Physical Exam Physical Exam more lethargic again today, poor po intake does follow most commands, but falls back asleep General: Cooperative, No acute distress Heart: Regular rate Lungs: Clear Abdomen: Normal bowel sounds, Other (massive distension) Extremities: No clubbing, Other (1+ LE edema) Skin: No rashes Labs LABS Laboratory Tests Test 09/21/16 06:20 09/21/16 08:00 White Blood Count 14.5 x10^3/uL (4.0-11.0) Red Blood Count 3.24 x10^6/uL (4.30-5.70) Hemoglobin 8.7 g/dL (13.0-17.5) Hematocrit 25.8 % (39.0-53.0) Mean Corpuscular Volume 80 fL (79-100) Mean Corpuscular Hemoglobin 27 pg (25-35) Mean Corpuscular Hemoglobin Concent 34 g/dL (31-37) Red Cell Distribution Width 20.4 % (11.5-14.5) Platelet Count 81 x10^3/uL (140-400) Neutrophils (%) (Auto) 78 % (31-73) Lymphocytes (%) (Auto) 7 % (24-48) Monocytes (%) (Auto) 15 % (0-9) Eosinophils (%) (Auto) 1 % (0-3) Basophils (%) (Auto) 1 % (0-3) Neutrophils # (Auto) 11.2 x10^3uL (1.8-7.7) Lymphocytes # (Auto) 1.0 x10^3/uL (1.0-4.8) Monocytes # (Auto) 2.1 x10^3/uL (0.0-1.1) Eosinophils # (Auto) 0.1 x10^3/uL (0.0-0.7) Basophils # (Auto) 0.1 x10^3/uL (0.0-0.2) Segmented Neutrophils % 79 % (35-66) Band Neutrophils % 1 % (0-9) Lymphocytes % 8 % (24-48) Atypical Lymphocytes % (Manual) 1 % (0-0) Monocytes % 11 % (0-10) Nucleated Red Blood Cells 4 Dohle Bodies Present Platelet Estimate Decreased (ADEQUATE) Anisocytosis Mod Target Cells Mod Catron Cells Few Prothrombin Time 56.6 SEC (11.7-14.0) Prothromb Time International Ratio 7.1 (0.8-1.1) Sodium Level 133 mmol/L (136-145) Potassium Level 4.4 mmol/L (3.5-5.1) Chloride Level 101 mmol/L (98-107) Carbon Dioxide Level 10 mmol/L (21-32) Anion Gap 22 (6-14) Blood Urea Nitrogen 44 mg/dL (8-26) Creatinine 4.3 mg/dL (0.7-1.3) Estimated GFR (Cockcroft-Gault) 17.4 BUN/Creatinine Ratio 10 (6-20) Glucose Level 87 mg/dL (70-99) Calcium Level 6.8 mg/dL (8.5-10.1) Iron Level 71 ug/dL (65-175) Total Iron Binding Capacity 82 ug/dL (250-450) Iron Saturation 87 % (15-34) Ferritin 9775 ng/mL (26-388) Total Bilirubin 36.0 mg/dL (0.2-1.0) Aspartate Amino Transf (AST/SGOT) 147 U/L (15-37) Alanine Aminotransferase (ALT/SGPT) 38 U/L (16-63) Alkaline Phosphatase 135 U/L (46-116) Total Protein 5.6 g/dL (6.4-8.2) Albumin 1.2 g/dL (3.4-5.0) Albumin/Globulin Ratio 0.3 (1.0-1.7) Glucose (Fingerstick) 99 mg/dL (70-99) Review of Systems Review of Systems no fever, chills, sob or chest pain Assessment and Plan Assessmemt and Plan Problems Medical Problems: (1) Anemia Status: Acute (2) Dehydration Status: Acute (3) Hyperbilirubinemia Status: Acute (4) Liver failure Status: Acute (5) Neuropathy Status: Acute Problems: Comment Review of Relevant I have reviewed the following items luigi (where applicable) has been applied. Labs Laboratory Tests Test 09/20/16 05:10 09/20/16 08:55 09/20/16 09:30 09/21/16 06:20 Tumor Marker Alpha Fetoprotein 5.1 ng/mL (0.0-8.3) White Blood Count 7.9 x10^3/uL (4.0-11.0) 14.5 x10^3/uL (4.0-11.0) Red Blood Count 3.03 x10^6/uL (4.30-5.70) 3.24 x10^6/uL (4.30-5.70) Hemoglobin 8.1 g/dL (13.0-17.5) 8.7 g/dL (13.0-17.5) Hematocrit 23.9 % (39.0-53.0) 25.8 % (39.0-53.0) Mean Corpuscular Volume 79 fL (79-100) 80 fL (79-100) Mean Corpuscular Hemoglobin 27 pg (25-35) 27 pg (25-35) Mean Corpuscular Hemoglobin Concent 34 g/dL (31-37) 34 g/dL (31-37) Red Cell Distribution Width 19.5 % (11.5-14.5) 20.4 % (11.5-14.5) Platelet Count 62 x10^3/uL (140-400) 81 x10^3/uL (140-400) Neutrophils (%) (Auto) 72 % (31-73) 78 % (31-73) Lymphocytes (%) (Auto) 12 % (24-48) 7 % (24-48) Monocytes (%) (Auto) 16 % (0-9) 15 % (0-9) Eosinophils (%) (Auto) 1 % (0-3) 1 % (0-3) Basophils (%) (Auto) 1 % (0-3) 1 % (0-3) Neutrophils # (Auto) 5.7 x10^3uL (1.8-7.7) 11.2 x10^3uL (1.8-7.7) Lymphocytes # (Auto) 0.9 x10^3/uL (1.0-4.8) 1.0 x10^3/uL (1.0-4.8) Monocytes # (Auto) 1.2 x10^3/uL (0.0-1.1) 2.1 x10^3/uL (0.0-1.1) Eosinophils # (Auto) 0.0 x10^3/uL (0.0-0.7) 0.1 x10^3/uL (0.0-0.7) Basophils # (Auto) 0.0 x10^3/uL (0.0-0.2) 0.1 x10^3/uL (0.0-0.2) Sodium Level 130 mmol/L (136-145) 133 mmol/L (136-145) Potassium Level 3.7 mmol/L (3.5-5.1) 4.4 mmol/L (3.5-5.1) Chloride Level 99 mmol/L (98-107) 101 mmol/L (98-107) Carbon Dioxide Level 17 mmol/L (21-32) 10 mmol/L (21-32) Anion Gap 14 (6-14) 22 (6-14) Blood Urea Nitrogen 38 mg/dL (8-26) 44 mg/dL (8-26) Creatinine 4.0 mg/dL (0.7-1.3) 4.3 mg/dL (0.7-1.3) Estimated GFR (Cockcroft-Gault) 18.9 17.4 BUN/Creatinine Ratio 10 (6-20) 10 (6-20) Glucose Level 73 mg/dL (70-99) 87 mg/dL (70-99) Calcium Level 7.1 mg/dL (8.5-10.1) 6.8 mg/dL (8.5-10.1) Total Bilirubin 35.6 mg/dL (0.2-1.0) 36.0 mg/dL (0.2-1.0) Aspartate Amino Transf (AST/SGOT) 147 U/L (15-37) 147 U/L (15-37) Alanine Aminotransferase (ALT/SGPT) 28 U/L (16-63) 38 U/L (16-63) Alkaline Phosphatase 158 U/L (46-116) 135 U/L (46-116) Total Protein 5.1 g/dL (6.4-8.2) 5.6 g/dL (6.4-8.2) Albumin 1.2 g/dL (3.4-5.0) 1.2 g/dL (3.4-5.0) Albumin/Globulin Ratio 0.3 (1.0-1.7) 0.3 (1.0-1.7) Prothrombin Time 49.2 SEC (11.7-14.0) 56.6 SEC (11.7-14.0) Prothromb Time International Ratio 5.9 (0.8-1.1) 7.1 (0.8-1.1) Ammonia 63 mcmol/L (11-34) Segmented Neutrophils % 79 % (35-66) Band Neutrophils % 1 % (0-9) Lymphocytes % 8 % (24-48) Atypical Lymphocytes % (Manual) 1 % (0-0) Monocytes % 11 % (0-10) Nucleated Red Blood Cells 4 Dohle Bodies Present Platelet Estimate Decreased (ADEQUATE) Anisocytosis Mod Target Cells Mod Catron Cells Few Iron Level 71 ug/dL (65-175) Total Iron Binding Capacity 82 ug/dL (250-450) Iron Saturation 87 % (15-34) Ferritin 9775 ng/mL (26-388) Test 09/21/16 08:00 Glucose (Fingerstick) 99 mg/dL (70-99) Laboratory Tests Test 09/21/16 06:20 09/21/16 08:00 White Blood Count 14.5 x10^3/uL (4.0-11.0) Red Blood Count 3.24 x10^6/uL (4.30-5.70) Hemoglobin 8.7 g/dL (13.0-17.5) Hematocrit 25.8 % (39.0-53.0) Mean Corpuscular Volume 80 fL (79-100) Mean Corpuscular Hemoglobin 27 pg (25-35) Mean Corpuscular Hemoglobin Concent 34 g/dL (31-37) Red Cell Distribution Width 20.4 % (11.5-14.5) Platelet Count 81 x10^3/uL (140-400) Neutrophils (%) (Auto) 78 % (31-73) Lymphocytes (%) (Auto) 7 % (24-48) Monocytes (%) (Auto) 15 % (0-9) Eosinophils (%) (Auto) 1 % (0-3) Basophils (%) (Auto) 1 % (0-3) Neutrophils # (Auto) 11.2 x10^3uL (1.8-7.7) Lymphocytes # (Auto) 1.0 x10^3/uL (1.0-4.8) Monocytes # (Auto) 2.1 x10^3/uL (0.0-1.1) Eosinophils # (Auto) 0.1 x10^3/uL (0.0-0.7) Basophils # (Auto) 0.1 x10^3/uL (0.0-0.2) Segmented Neutrophils % 79 % (35-66) Band Neutrophils % 1 % (0-9) Lymphocytes % 8 % (24-48) Atypical Lymphocytes % (Manual) 1 % (0-0) Monocytes % 11 % (0-10) Nucleated Red Blood Cells 4 Dohle Bodies Present Platelet Estimate Decreased (ADEQUATE) Anisocytosis Mod Target Cells Mod [place] Cells Few Prothrombin Time 56.6 SEC (11.7-14.0) Prothromb Time International Ratio 7.1 (0.8-1.1) Sodium Level 133 mmol/L (136-145) Potassium Level 4.4 mmol/L (3.5-5.1) Chloride Level 101 mmol/L (98-107) Carbon Dioxide Level 10 mmol/L (21-32) Anion Gap 22 (6-14) Blood Urea Nitrogen 44 mg/dL (8-26) Creatinine 4.3 mg/dL (0.7-1.3) Estimated GFR (Cockcroft-Gault) 17.4 BUN/Creatinine Ratio 10 (6-20) Glucose Level 87 mg/dL (70-99) Calcium Level 6.8 mg/dL (8.5-10.1) Iron Level 71 ug/dL (65-175) Total Iron Binding Capacity 82 ug/dL (250-450) Iron Saturation 87 % (15-34) Ferritin 9775 ng/mL (26-388) Total Bilirubin 36.0 mg/dL (0.2-1.0) Aspartate Amino Transf (AST/SGOT) 147 U/L (15-37) Alanine Aminotransferase (ALT/SGPT) 38 U/L (16-63) Alkaline Phosphatase 135 U/L (46-116) Total Protein 5.6 g/dL (6.4-8.2) Albumin 1.2 g/dL (3.4-5.0) Albumin/Globulin Ratio 0.3 (1.0-1.7) Glucose (Fingerstick) 99 mg/dL (70-99) Microbiology 09/16/16 Blood Culture - Preliminary, Resulted 09/16/16 Blood Culture Result 1 (CHRISSY) - Preliminary, Resulted 09/19/16 Urine Culture - Preliminary, Resulted 09/19/16 Urine Culture Result 1 (CHRISSY) - Preliminary, Resulted Medications Current Medications Sodium Chloride 1,000 ml @ 1,000 mls/hr Q1H IV Last administered on 09/16/16 12:59; Start 09/16/16 at 12:17; Stop 09/16/16 at 13:16; Status DC Sodium Chloride (Normal Saline Flush) 10 ml QSHIFT PRN IV AFTER MEDS AND BLOOD DRAWS Last administered on 09/16/16 13:00; Start 09/16/16 at 12:30 Ondansetron HCl (Zofran) 4 mg PRN Q8HRS PRN IV NAUSEA/VOMITING; Start 09/16/16 at 15:45; Stop 09/17/16 at 15:44; Status DC Sodium Chloride 1,000 ml @ 50 mls/hr Q20H IV Last administered on 09/17/16 10 :38; Start 09/16/16 at 15:40; Stop 09/17/16 at 15:39; Status DC Acetaminophen (Tylenol) 650 mg PRN Q6HRS PRN PO FEVER Last administered on 09/18 08:33; Start 09/16/16 at 16:15 Ondansetron HCl (Zofran) 4 mg PRN Q6HRS PRN IV NAUSEA/VOMITING; Start 09/16/16 at 16:15 Morphine Sulfate 2 mg PRN Q2HR PRN IV PAIN; Start 09/16/16 at 16:15; Stop 09/17 at 12:52; Status DC Tramadol HCl (Ultram) 50 mg PRN Q6HRS PRN PO MILD - MODERATE PAIN Last administered on 09/20/16 06:22; Start 09/16/16 at 16:15 Hydralazine HCl (Apresoline) 10 mg PRN Q4HRS PRN IVP ELEVATED BP, SEE COMMENTS ; Start 09/16/16 at 16:15 Docusate Sodium (Colace) 100 mg PRN DAILY PRN PO CONSTIPATION; Start 09/16/16 at 16:15 Enoxaparin Sodium (Lovenox 40mg Syringe) 40 mg QHS SQ ; Start 09/16/16 at 21:00 ; Stop 09/16/16 at 21:00; Status DC Multivitamins 10 ml/Thiamine HCl 100 mg/Folic Acid 1 mg/Sodium Chloride 1,011.2 ml @ 100 mls/ hr DAILY IV Last administered on 09/20/16 09:54; Start at 14:00; Stop 09/20/16 at 21:00; Status DC Phytonadione (Mephyton) 10 mg DAILY PO Last administered on 09/19/16 10:09; Start 09/17/16 at 18:30; Stop 09/20/16 at 20:28; Status DC Fludrocortisone Acetate (Florinef) 0.1 mg BID PO Last administered on 10:09; Start 09/17/16 at 21:00 Potassium Chloride (Klor-Con) 40 meq 1X ONCE PO Last administered on 07:16; Start 09/18/16 at 07:00; Stop 09/18/16 at 07:01; Status DC Potassium Chloride (Klor-Con) 40 meq 1X ONCE PO Last administered on 12:04; Start 09/18/16 at 12:00; Stop 09/18/16 at 12:01; Status DC Lorazepam (Ativan) 2 mg PRN Q1HR PRN IV For CIWA 8-14 Last administered on 09/19 18:08; Start 09/18/16 at 12:30 Lorazepam (Ativan) 4 mg PRN Q1HR PRN IV For CIWA 15 or greater; Start 09/18/16 at 12:30 Lorazepam (Ativan) 1 mg BID PO Last administered on 09/19/16 10:09; Start at 12:30 Lidocaine (Lidoderm) 1 patch DAILY TD Last administered on 09/21/16 09:40; Start 09/18/16 at 13:00 Oxycodone HCl (Roxicodone) 5 mg PRN Q6HRS PRN PO SEVERE PAIN; Start 09/18/16 at 13:00 Phytonadione (Vitamin K) 10 mg 1X ONCE SQ Last administered on 09/18/16 18:20 ; Start 09/18/16 at 15:45; Stop 09/18/16 at 15:46; Status DC Lactulose 20 gm DAILY PO Last administered on 09/19/16 10:10; Start 09/18/16 at 21:00 Sodium Chloride 500 ml @ 500 mls/hr 1X ONCE IV Last administered on 04:26; Start 09/19/16 at 04:30; Stop 09/19/16 at 05:29; Status DC Piperacillin Sod/ Tazobactam Sod (Zosyn Per Pharmacy) 1 each PRN DAILY PRN MC SEE COMMENTS; Start 09/19/16 at 11:30 Sodium Chloride 1,000 ml @ 150 mls/hr 1X ONCE IV Last administered on 12:06; Start 09/19/16 at 11:45; Stop 09/19/16 at 18:24; Status DC Piperacillin Sod/ Tazobactam Sod 2.25 gm/Sodium Chloride 50 ml @ 100 mls/hr Q6HRS IV Last administered on 09/20/16 13:53; Start 09/19/16 at 12:00; Stop at 18:34; Status DC Multivitamins (Thera M Plus) 1 tab DAILY PO ; Start 09/21/16 at 09:00 Folic Acid (Folic Acid) 1 mg DAILY PO ; Start 09/21/16 at 09:00 Thiamine Mononitrate (Vitamin B-1) 100 mg DAILY PO ; Start 09/21/16 at 09:00 Sodium Chloride 1,000 ml @ 1,000 mls/hr 1X ONCE IV Last administered on 08:51; Start 09/20/16 at 08:30; Stop 09/20/16 at 09:29; Status DC Rifaximin (Xifaxan) 550 mg Q12HR PO ; Start 09/20/16 at 10:00 Sodium Chloride 1,000 ml @ 1,000 mls/hr 1X ONCE IV Last administered on 15:30; Start 09/20/16 at 15:30; Stop 09/20/16 at 16:29; Status DC Piperacillin Sod/ Tazobactam Sod 2.25 gm/Sodium Chloride 50 ml @ 100 mls/hr Q8HRS IV Last administered on 09/21/16 05:43; Start 09/20/16 at 22:00 Levofloxacin/ Dextrose 50 ml @ 50 mls/hr 1X ONCE IV Last administered on 19:48; Start 09/20/16 at 19:00; Stop 09/20/16 at 19:59; Status DC Norepinephrine Bitartrate 250 ml @ As Directed STK-MED ONCE IV ; Start at 19:00; Stop 09/20/16 at 19:01; Status DC Norepinephrine Bitartrate 250 ml @ 0 mls/hr CONT PRN IV SEE I/O RECORD Last administered on 09/21/16 09:42; Start 09/20/16 at 20:15 Phytonadione 5 mg/ Sodium Chloride 50.5 ml @ 102 mls/hr DAILY IV Last administered on 09/21/16t 09:40; Start 09/21/16 at 09:00 Lidocaine/Sodium Bicarbonate (Buffered Lidocaine 1%) 3 ml 1X ONCE IJ ; Start at 08:45; Stop 09/21/16 at 08:50; Status DC Heparin Sodium/ Sodium Chloride 60 unit 1X ONCE IV ; Start 09/21/16 at 08:45; Stop 09/21/16 at 08:50; Status DC Active Scripts Active Reported No Known Medications Prior To Admisstion (Info) Each 1 Each Vitals/I & O Vital Sign - Last 24 Hours 09/20/16 09/20/16 09/20/16 09/20/16 15:00 19:30 19:45 19:45 Temp 97.5 97.9 97.5 97.9 Pulse 89 100 96 Resp 22 31 24 B/P (MAP) 65/44 (51) 109/68 (82) 76/52 (60) Pulse Ox 96 95 97 O2 Delivery Room Air Room Air Room Air Room Air 09/20/16 09/20/16 09/20/16 09/20/16 20:00 20:15 20:30 20:45 Pulse 92 92 94 94 Resp 20 18 26 22 B/P (MAP) 75/53 (60) 92/65 (74) 97/66 (76) 86/61 (69) Pulse Ox 97 97 96 97 O2 Delivery Room Air Room Air Room Air Room Air 09/20/16 09/20/16 09/20/16 09/21/16 21:00 22:00 23:00 00:00 Pulse 94 94 93 Resp 22 18 18 B/P (MAP) 99/60 (73) 101/65 (77) 92/62 (72) Pulse Ox 97 97 98 O2 Delivery Room Air Room Air Room Air Room Air 09/21/16 09/21/16 09/21/16 09/21/16 00:00 00:45 01:00 02:00 Temp 96.8 96.8 Pulse 93 93 97 Resp 17 19 19 B/P (MAP) 93/63 (73) 96/67 (77) 97/65 (76) 96/64 (75) Pulse Ox 98 98 97 O2 Delivery Room Air Room Air Room Air 09/21/16 09/21/16 09/21/1609/21/17 03:00 03:15 04:00 04:00 Temp 97.3 97.3 Pulse 94 94 Resp 19 18 B/P (MAP) 81/56 (64) 93/60 (71) 85/58 (67) Pulse Ox 97 97 O2 Delivery Room Air Room Air Room Air 09/21/16 09/21/16 09/21/16 09/21/16 04:15 05:00 06:00 06:45 Pulse 96 97 96 Resp 19 18 20 B/P (MAP) 91/60 (70) 92/59 (70) 97/62 (74) 90/55 (67) Pulse Ox 97 97 97 O2 Delivery Room Air Room Air Room Air 09/21/16 09/21/16 09/21/16 09/21/16 07:00 07:15 07:30 07:45 Temp 98.1 98.1 Pulse 96 96 96 102 Resp 20 22 24 20 B/P (MAP) 84/49 (61) 91/50 (64) 91/56 (68) 93/55 (68) Pulse Ox 97 97 97 97 O2 Delivery Room Air Room Air Room Air Room Air 09/21/16 09/21/16 09/21/16 09/21/16 08:00 08:15 08:15 08:30 Pulse 98 96 96 Resp 22 20 22 B/P (MAP) 92/55 (67) 94/55 (68) 97/54 (68) Pulse Ox 98 97 97 O2 Delivery Room Air Room Air Room Air Room Air 09/21/16 09/21/16 09/21/16 09/21/16 08:45 09:00 09:15 09:30 Pulse 96 96 100 100 Resp 22 20 18 20 B/P (MAP) 90/54 (66) 86/57 (67) 86/55 (65) 92/55 (67) Pulse Ox 97 97 96 97 O2 Delivery Room Air Room Air Room Air Room Air 09/21/16 09/21/16 09/21/16 09/21/16 09:45 10:00 10:15 10:30 Pulse 102 96 94 98 Resp 20 20 22 18 B/P (MAP) 71/50 (57) 90/51 (64) 91/53 (66) 93/57 (69) Pulse Ox 97 97 97 97 O2 Delivery Room Air Room Air Room Air Room Air 09/21/16 09/21/16 09/21/16 09/21/16 10:45 11:00 11:15 11:30 Pulse 94 96 100 100 Resp 18 20 20 22 B/P (MAP) 87/55 (66) 92/59 (70) 96/63 (74) 90/55 (67) Pulse Ox 97 97 97 97 O2 Delivery Room Air Room Air Room Air Room Air 09/21/16 09/21/16 09/21/16 11:45 12:00 12:00 Pulse 96 98 Resp 24 22 B/P (MAP) 90/57 (68) 92/56 (68) Pulse Ox 97 97 O2 Delivery Room Air Room Air Room Air Intake and Output 09/20/16 09/20/16 09/21/16 14:59 22:59 06:59 Intake Total 693 ml Output Total 25 ml Balance 668 ml Nutrition Consultation Dietary Evaluation: Recommendations by RD: Increase Calorie Intake, Protein supplementation Comments: low Na, high protein diet at d/c added Ensure bid rec mvi and appetite stimulant at d/c Expected Outcomes/Goals: consumption of nutrient dense foods Malnutrition Findings: Food and Nutrition Intake (Sev: <50% est energy req 5days Weight Status: Appropriate Fluid Accumulation (Severe): Severe TIANNA ROMANO MD Sep 21, 2016 13:18
--- NOTE | 2016-09-21 13:32 | PDOC ---
G I PROGRESS NOTE Reason for Follow-up Alcoholic liver disease Subjective Not responsive save to noxious stimuli. Does not verbalize. Objective Events overnight noted. Physical Exam Lungs clear. RRR Abdomen with becoming tense ascites. Intensely icteric. Some LE edema. Review of Relevant I have reviewed the following items luigi (where applicable) has been applied. Labs Laboratory Tests Test 09/20/16 05:10 09/20/16 08:55 09/20/16 09:30 09/21/16 06:20 Tumor Marker Alpha Fetoprotein 5.1 ng/mL (0.0-8.3) White Blood Count 7.9 x10^3/uL (4.0-11.0) 14.5 x10^3/uL (4.0-11.0) Red Blood Count 3.03 x10^6/uL (4.30-5.70) 3.24 x10^6/uL (4.30-5.70) Hemoglobin 8.1 g/dL (13.0-17.5) 8.7 g/dL (13.0-17.5) Hematocrit 23.9 % (39.0-53.0) 25.8 % (39.0-53.0) Mean Corpuscular Volume 79 fL (79-100) 80 fL (79-100) Mean Corpuscular Hemoglobin 27 pg (25-35) 27 pg (25-35) Mean Corpuscular Hemoglobin Concent 34 g/dL (31-37) 34 g/dL (31-37) Red Cell Distribution Width 19.5 % (11.5-14.5) 20.4 % (11.5-14.5) Platelet Count 62 x10^3/uL (140-400) 81 x10^3/uL (140-400) Neutrophils (%) (Auto) 72 % (31-73) 78 % (31-73) Lymphocytes (%) (Auto) 12 % (24-48) 7 % (24-48) Monocytes (%) (Auto) 16 % (0-9) 15 % (0-9) Eosinophils (%) (Auto) 1 % (0-3) 1 % (0-3) Basophils (%) (Auto) 1 % (0-3) 1 % (0-3) Neutrophils # (Auto) 5.7 x10^3uL (1.8-7.7) 11.2 x10^3uL (1.8-7.7) Lymphocytes # (Auto) 0.9 x10^3/uL (1.0-4.8) 1.0 x10^3/uL (1.0-4.8) Monocytes # (Auto) 1.2 x10^3/uL (0.0-1.1) 2.1 x10^3/uL (0.0-1.1) Eosinophils # (Auto) 0.0 x10^3/uL (0.0-0.7) 0.1 x10^3/uL (0.0-0.7) Basophils # (Auto) 0.0 x10^3/uL (0.0-0.2) 0.1 x10^3/uL (0.0-0.2) Sodium Level 130 mmol/L (136-145) 133 mmol/L (136-145) Potassium Level 3.7 mmol/L (3.5-5.1) 4.4 mmol/L (3.5-5.1) Chloride Level 99 mmol/L (98-107) 101 mmol/L (98-107) Carbon Dioxide Level 17 mmol/L (21-32) 10 mmol/L (21-32) Anion Gap 14 (6-14) 22 (6-14) Blood Urea Nitrogen 38 mg/dL (8-26) 44 mg/dL (8-26) Creatinine 4.0 mg/dL (0.7-1.3) 4.3 mg/dL (0.7-1.3) Estimated GFR (Cockcroft-Gault) 18.9 17.4 BUN/Creatinine Ratio 10 (6-20) 10 (6-20) Glucose Level 73 mg/dL (70-99) 87 mg/dL (70-99) Calcium Level 7.1 mg/dL (8.5-10.1) 6.8 mg/dL (8.5-10.1) Total Bilirubin 35.6 mg/dL (0.2-1.0) 36.0 mg/dL (0.2-1.0) Aspartate Amino Transf (AST/SGOT) 147 U/L (15-37) 147 U/L (15-37) Alanine Aminotransferase (ALT/SGPT) 28 U/L (16-63) 38 U/L (16-63) Alkaline Phosphatase 158 U/L (46-116) 135 U/L (46-116) Total Protein 5.1 g/dL (6.4-8.2) 5.6 g/dL (6.4-8.2) Albumin 1.2 g/dL (3.4-5.0) 1.2 g/dL (3.4-5.0) Albumin/Globulin Ratio 0.3 (1.0-1.7) 0.3 (1.0-1.7) Prothrombin Time 49.2 SEC (11.7-14.0) 56.6 SEC (11.7-14.0) Prothromb Time International Ratio 5.9 (0.8-1.1) 7.1 (0.8-1.1) Ammonia 63 mcmol/L (11-34) Segmented Neutrophils % 79 % (35-66) Band Neutrophils % 1 % (0-9) Lymphocytes % 8 % (24-48) Atypical Lymphocytes % (Manual) 1 % (0-0) Monocytes % 11 % (0-10) Nucleated Red Blood Cells 4 Dohle Bodies Present Platelet Estimate Decreased (ADEQUATE) Anisocytosis Mod Target Cells Mod [place] Cells Few Iron Level 71 ug/dL (65-175) Total Iron Binding Capacity 82 ug/dL (250-450) Iron Saturation 87 % (15-34) Ferritin 9775 ng/mL (26-388) Test 09/21/16 08:00 Glucose (Fingerstick) 99 mg/dL (70-99) Laboratory Tests Test 09/21/16 06:20 09/21/16 08:00 White Blood Count 14.5 x10^3/uL (4.0-11.0) Red Blood Count 3.24 x10^6/uL (4.30-5.70) Hemoglobin 8.7 g/dL (13.0-17.5) Hematocrit 25.8 % (39.0-53.0) Mean Corpuscular Volume 80 fL (79-100) Mean Corpuscular Hemoglobin 27 pg (25-35) Mean Corpuscular Hemoglobin Concent 34 g/dL (31-37) Red Cell Distribution Width 20.4 % (11.5-14.5) Platelet Count 81 x10^3/uL (140-400) Neutrophils (%) (Auto) 78 % (31-73) Lymphocytes (%) (Auto) 7 % (24-48) Monocytes (%) (Auto) 15 % (0-9) Eosinophils (%) (Auto) 1 % (0-3) Basophils (%) (Auto) 1 % (0-3) Neutrophils # (Auto) 11.2 x10^3uL (1.8-7.7) Lymphocytes # (Auto) 1.0 x10^3/uL (1.0-4.8) Monocytes # (Auto) 2.1 x10^3/uL (0.0-1.1) Eosinophils # (Auto) 0.1 x10^3/uL (0.0-0.7) Basophils # (Auto) 0.1 x10^3/uL (0.0-0.2) Segmented Neutrophils % 79 % (35-66) Band Neutrophils % 1 % (0-9) Lymphocytes % 8 % (24-48) Atypical Lymphocytes % (Manual) 1 % (0-0) Monocytes % 11 % (0-10) Nucleated Red Blood Cells 4 Dohle Bodies Present Platelet Estimate Decreased (ADEQUATE) Anisocytosis Mod Target Cells Mod [place] Cells Few Prothrombin Time 56.6 SEC (11.7-14.0) Prothromb Time International Ratio 7.1 (0.8-1.1) Sodium Level 133 mmol/L (136-145) Potassium Level 4.4 mmol/L (3.5-5.1) Chloride Level 101 mmol/L (98-107) Carbon Dioxide Level 10 mmol/L (21-32) Anion Gap 22 (6-14) Blood Urea Nitrogen 44 mg/dL (8-26) Creatinine 4.3 mg/dL (0.7-1.3) Estimated GFR (Cockcroft-Gault) 17.4 BUN/Creatinine Ratio 10 (6-20) Glucose Level 87 mg/dL (70-99) Calcium Level 6.8 mg/dL (8.5-10.1) Iron Level 71 ug/dL (65-175) Total Iron Binding Capacity 82 ug/dL (250-450) Iron Saturation 87 % (15-34) Ferritin 9775 ng/mL (26-388) Total Bilirubin 36.0 mg/dL (0.2-1.0) Aspartate Amino Transf (AST/SGOT) 147 U/L (15-37) Alanine Aminotransferase (ALT/SGPT) 38 U/L (16-63) Alkaline Phosphatase 135 U/L (46-116) Total Protein 5.6 g/dL (6.4-8.2) Albumin 1.2 g/dL (3.4-5.0) Albumin/Globulin Ratio 0.3 (1.0-1.7) Glucose (Fingerstick) 99 mg/dL (70-99) Microbiology 09/16/16 Blood Culture - Preliminary, Resulted 09/16/16 Blood Culture Result 1 (CHRISSY) - Preliminary, Resulted 09/19/16 Urine Culture - Preliminary, Resulted 09/19/16 Urine Culture Result 1 (CHRISSY) - Preliminary, Resulted Worsening creatinine, INR Medications Current Medications Sodium Chloride 1,000 ml @ 1,000 mls/hr Q1H IV Last administered on 09/16/16 12:59; Start 09/16/16 at 12:17; Stop 09/16/16 at 13:16; Status DC Sodium Chloride (Normal Saline Flush) 10 ml QSHIFT PRN IV AFTER MEDS AND BLOOD DRAWS Last administered on 09/16/16 13:00; Start 09/16/16 at 12:30 Ondansetron HCl (Zofran) 4 mg PRN Q8HRS PRN IV NAUSEA/VOMITING; Start 09/16/16 at 15:45; Stop 09/17/16 at 15:44; Status DC Sodium Chloride 1,000 ml @ 50 mls/hr Q20H IV Last administered on 09/17/16 10 :38; Start 09/16/16 at 15:40; Stop 09/17/16 at 15:39; Status DC Acetaminophen (Tylenol) 650 mg PRN Q6HRS PRN PO FEVER Last administered on 09/18 08:33; Start 09/16/16 at 16:15 Ondansetron HCl (Zofran) 4 mg PRN Q6HRS PRN IV NAUSEA/VOMITING; Start 09/16/16 at 16:15 Morphine Sulfate 2 mg PRN Q2HR PRN IV PAIN; Start 09/16/16 at 16:15; Stop 09/17 at 12:52; Status DC Tramadol HCl (Ultram) 50 mg PRN Q6HRS PRN PO MILD - MODERATE PAIN Last administered on 09/20/16 06:22; Start 09/16/16 at 16:15 Hydralazine HCl (Apresoline) 10 mg PRN Q4HRS PRN IVP ELEVATED BP, SEE COMMENTS ; Start 09/16/16 at 16:15 Docusate Sodium (Colace) 100 mg PRN DAILY PRN PO CONSTIPATION; Start 09/16/16 at 16:15 Enoxaparin Sodium (Lovenox 40mg Syringe) 40 mg QHS SQ ; Start 09/16/16 at 21:00 ; Stop 09/16/16 at 21:00; Status DC Multivitamins 10 ml/Thiamine HCl 100 mg/Folic Acid 1 mg/Sodium Chloride 1,011.2 ml @ 100 mls/ hr DAILY IV Last administered on 09/20/16 09:54; Start at 14:00; Stop 09/20/16 at 21:00; Status DC Phytonadione (Mephyton) 10 mg DAILY PO Last administered on 09/19/16 10:09; Start 09/17/16 at 18:30; Stop 09/20/16 at 20:28; Status DC Fludrocortisone Acetate (Florinef) 0.1 mg BID PO Last administered on 10:09; Start 09/17/16 at 21:00 Potassium Chloride (Klor-Con) 40 meq 1X ONCE PO Last administered on 07:16; Start 09/18/16 at 07:00; Stop 09/18/16 at 07:01; Status DC Potassium Chloride (Klor-Con) 40 meq 1X ONCE PO Last administered on 12:04; Start 09/18/16 at 12:00; Stop 09/18/16 at 12:01; Status DC Lorazepam (Ativan) 2 mg PRN Q1HR PRN IV For CIWA 8-14 Last administered on 09/19 18:08; Start 09/18/16 at 12:30 Lorazepam (Ativan) 4 mg PRN Q1HR PRN IV For CIWA 15 or greater; Start 09/18/16 at 12:30 Lorazepam (Ativan) 1 mg BID PO Last administered on 09/19/16 10:09; Start at 12:30 Lidocaine (Lidoderm) 1 patch DAILY TD Last administered on 09/21/16 09:40; Start 09/18/16 at 13:00 Oxycodone HCl (Roxicodone) 5 mg PRN Q6HRS PRN PO SEVERE PAIN; Start 09/18/16 at 13:00 Phytonadione (Vitamin K) 10 mg 1X ONCE SQ Last administered on 09/18/16 18:20 ; Start 09/18/16 at 15:45; Stop 09/18/16 at 15:46; Status DC Lactulose 20 gm DAILY PO Last administered on 09/19/16 10:10; Start 09/18/16 at 21:00 Sodium Chloride 500 ml @ 500 mls/hr 1X ONCE IV Last administered on 04:26; Start 09/19/16 at 04:30; Stop 09/19/16 at 05:29; Status DC Piperacillin Sod/ Tazobactam Sod (Zosyn Per Pharmacy) 1 each PRN DAILY PRN MC SEE COMMENTS; Start 09/19/16 at 11:30 Sodium Chloride 1,000 ml @ 150 mls/hr 1X ONCE IV Last administered on 12:06; Start 09/19/16 at 11:45; Stop 09/19/16 at 18:24; Status DC Piperacillin Sod/ Tazobactam Sod 2.25 gm/Sodium Chloride 50 ml @ 100 mls/hr Q6HRS IV Last administered on 09/20/16 13:53; Start 09/19/16 at 12:00; Stop at 18:34; Status DC Multivitamins (Thera M Plus) 1 tab DAILY PO ; Start 09/21/16 at 09:00 Folic Acid (Folic Acid) 1 mg DAILY PO ; Start 09/21/16 at 09:00 Thiamine Mononitrate (Vitamin B-1) 100 mg DAILY PO ; Start 09/21/16 at 09:00 Sodium Chloride 1,000 ml @ 1,000 mls/hr 1X ONCE IV Last administered on 08:51; Start 09/20/16 at 08:30; Stop 09/20/16 at 09:29; Status DC Rifaximin (Xifaxan) 550 mg Q12HR PO ; Start 09/20/16 at 10:00 Sodium Chloride 1,000 ml @ 1,000 mls/hr 1X ONCE IV Last administered on 15:30; Start 09/20/16 at 15:30; Stop 09/20/16 at 16:29; Status DC Piperacillin Sod/ Tazobactam Sod 2.25 gm/Sodium Chloride 50 ml @ 100 mls/hr Q8HRS IV Last administered on 09/21/16 05:43; Start 09/20/16 at 22:00 Levofloxacin/ Dextrose 50 ml @ 50 mls/hr 1X ONCE IV Last administered on 19:48; Start 09/20/16 at 19:00; Stop 09/20/16 at 19:59; Status DC Norepinephrine Bitartrate 250 ml @ As Directed STK-MED ONCE IV ; Start at 19:00; Stop 09/20/16 at 19:01; Status DC Norepinephrine Bitartrate 250 ml @ 0 mls/hr CONT PRN IV SEE I/O RECORD Last administered on 09/21/16 09:42; Start 09/20/16 at 20:15 Phytonadione 5 mg/ Sodium Chloride 50.5 ml @ 102 mls/hr DAILY IV Last administered on 09/21/16 09:40; Start 09/21/16 at 09:00 Lidocaine/Sodium Bicarbonate (Buffered Lidocaine 1%) 3 ml 1X ONCE IJ ; Start at 08:45; Stop 09/21/16 at 08:50; Status DC Heparin Sodium/ Sodium Chloride 60 unit 1X ONCE IV ; Start 09/21/16 at 08:45; Stop 09/21/16 at 08:50; Status DC Active Scripts Active Reported No Known Medications Prior To Admisstion (Info) Each 1 Each Vitals/I & O Vital Sign - Last 24 Hours 09/20/16 09/20/16 09/20/16 09/20/16 15:00 19:30 19:45 19:45 Temp 97.5 97.9 97.5 97.9 Pulse 89 100 96 Resp 22 31 24 B/P (MAP) 65/44 (51) 109/68 (82) 76/52 (60) Pulse Ox 96 95 97 O2 Delivery Room Air Room Air Room Air Room Air 09/20/16 09/20/16 09/20/16 09/20/16 20:00 20:15 20:30 20:45 Pulse 92 92 94 94 Resp 20 18 26 22 B/P (MAP) 75/53 (60) 92/65 (74) 97/66 (76) 86/61 (69) Pulse Ox 97 97 96 97 O2 Delivery Room Air Room Air Room Air Room Air 09/20/16 09/20/16 09/20/16 09/21/16 21:00 22:00 23:00 00:00 Pulse 94 94 93 Resp 22 18 18 B/P (MAP) 99/60 (73) 101/65 (77) 92/62 (72) Pulse Ox 97 97 98 O2 Delivery Room Air Room Air Room Air Room Air 09/21/16 09/21/16 09/21/16 09/21/16 00:00 00:45 01:00 02:00 Temp 96.8 96.8 Pulse 93 93 97 Resp 17 19 19 B/P (MAP) 93/63 (73) 96/67 (77) 97/65 (76) 96/64 (75) Pulse Ox 98 98 97 O2 Delivery Room Air Room Air Room Air 09/21/16 09/21/16 09/21/16 09/21/16 03:00 03:15 04:00 04:00 Temp 97.3 97.3 Pulse 94 94 Resp 19 18 B/P (MAP) 81/56 (64) 93/60 (71) 85/58 (67) Pulse Ox 97 97 O2 Delivery Room Air Room Air Room Air 09/21/16 09/21/16 09/21/16 09/21/16 04:15 05:00 06:00 06:45 Pulse 96 97 96 Resp 19 18 20 B/P (MAP) 91/60 (70) 92/59 (70) 97/62 (74) 90/55 (67) Pulse Ox 97 97 97 O2 Delivery Room Air Room Air Room Air 09/21/16 09/21/16 09/21/16 09/21/16 07:00 07:15 07:30 07:45 Temp 98.1 98.1 Pulse 96 96 96 102 Resp 20 22 24 20 B/P (MAP) 84/49 (61) 91/50 (64) 91/56 (68) 93/55 (68) Pulse Ox 97 97 97 97 O2 Delivery Room Air Room Air Room Air Room Air 09/21/16 09/21/16 09/21/16 09/21/16 08:00 08:15 08:15 08:30 Pulse 98 96 96 Resp 22 20 22 B/P (MAP) 92/55 (67) 94/55 (68) 97/54 (68) Pulse Ox 98 97 97 O2 Delivery Room Air Room Air Room Air Room Air 09/21/16 09/21/16 09/21/16 09/21/16 08:45 09:00 09:15 09:30 Pulse 96 96 100 100 Resp 22 20 18 20 B/P (MAP) 90/54 (66) 86/57 (67) 86/55 (65) 92/55 (67) Pulse Ox 97 97 96 97 O2 Delivery Room Air Room Air Room Air Room Air 09/21/16 09/21/16 09/21/16 09/21/16 09:45 10:00 10:15 10:30 Pulse 102 96 94 98 Resp 20 20 22 18 B/P (MAP) 71/50 (57) 90/51 (64) 91/53 (66) 93/57 (69) Pulse Ox 97 97 97 97 O2 Delivery Room Air Room Air Room Air Room Air 09/21/16 09/21/16 09/21/16 09/21/16 10:45 11:00 11:15 11:30 Pulse 94 96 100 100 Resp 18 20 20 22 B/P (MAP) 87/55 (66) 92/59 (70) 96/63 (74) 90/55 (67) Pulse Ox 97 97 97 97 O2 Delivery Room Air Room Air Room Air Room Air 09/21/16 09/21/16 09/21/16 11:45 12:00 12:00 Pulse 96 98 Resp 24 22 B/P (MAP) 90/57 (68) 92/56 (68) Pulse Ox 97 97 O2 Delivery Room Air Room Air Room Air Intake and Output 09/20/16 09/20/16 09/21/16 15:00 23:00 07:00 Intake Total 693 ml Output Total 25 ml Balance 668 ml Problem List Problems Medical Problems: (1) Anemia Status: Acute (2) Dehydration Status: Acute (3) Hyperbilirubinemia Status: Acute (4) Liver failure Status: Acute (5) Neuropathy Status: Acute Assessment Progressive liver failure. Now with worsening renal function (HRS?). Meld=55 ( 100% mortality at 3 months or sooner). Still no speciation, etc. on GNR from blood. Plan of Care: Continue current Tx, Mgmt Plan of Care Note Prognosis is nil. Attempted to explain to family member. SUDHAKAR HORNER MD Sep 21, 2016 13:32
--- NOTE | 2016-09-21 13:33 | PDOC ---
Infectious Disease Note Subjective Subjective s/p RIJ. Hypotensive, on Levophed 15 mcg Minimal UO No fever, vomiting or diarrhea reported ROS ROS Unobtainable Vital Sign Vital Signs Vital Signs Date Time Temp Pulse Resp B/P (MAP) Pulse Ox O2 Delivery O2 Flow Rate FiO2 09/21/16 12:00 Room Air 09/21/16 12:00 98 22 92/56 (68) 97 09/21/16 07:15 98.1 98.1 Physical Exam PHYSICAL EXAM GENERAL: Somnolent HEENT: Sclerae icterus. Oral mucosa pink, dry. Poor dentition. LUNGS: Diminished aeration in the bases, nonlabored. HEART: Normal S1, S2. ABDOMEN: Increase distention, Bowel sounds present. no grimace or guarding to palpation ; [place] EXTREMITIES: Generalized edema SKIN: Jaundiced RIJ (09/21). oozing Labs Lab Laboratory Tests Test 09/21/16 06:20 09/21/16 08:00 White Blood Count 14.5 x10^3/uL (4.0-11.0) Red Blood Count 3.24 x10^6/uL (4.30-5.70) Hemoglobin 8.7 g/dL (13.0-17.5) Hematocrit 25.8 % (39.0-53.0) Mean Corpuscular Volume 80 fL (79-100) Mean Corpuscular Hemoglobin 27 pg (25-35) Mean Corpuscular Hemoglobin Concent 34 g/dL (31-37) Red Cell Distribution Width 20.4 % (11.5-14.5) Platelet Count 81 x10^3/uL (140-400) Neutrophils (%) (Auto) 78 % (31-73) Lymphocytes (%) (Auto) 7 % (24-48) Monocytes (%) (Auto) 15 % (0-9) Eosinophils (%) (Auto) 1 % (0-3) Basophils (%) (Auto) 1 % (0-3) Neutrophils # (Auto) 11.2 x10^3uL (1.8-7.7) Lymphocytes # (Auto) 1.0 x10^3/uL (1.0-4.8) Monocytes # (Auto) 2.1 x10^3/uL (0.0-1.1) Eosinophils # (Auto) 0.1 x10^3/uL (0.0-0.7) Basophils # (Auto) 0.1 x10^3/uL (0.0-0.2) Segmented Neutrophils % 79 % (35-66) Band Neutrophils % 1 % (0-9) Lymphocytes % 8 % (24-48) Atypical Lymphocytes % (Manual) 1 % (0-0) Monocytes % 11 % (0-10) Nucleated Red Blood Cells 4 Dohle Bodies Present Platelet Estimate Decreased (ADEQUATE) Anisocytosis Mod Target Cells Mod [place] Cells Few Prothrombin Time 56.6 SEC (11.7-14.0) Prothromb Time International Ratio 7.1 (0.8-1.1) Sodium Level 133 mmol/L (136-145) Potassium Level 4.4 mmol/L (3.5-5.1) Chloride Level 101 mmol/L (98-107) Carbon Dioxide Level 10 mmol/L (21-32) Anion Gap 22 (6-14) Blood Urea Nitrogen 44 mg/dL (8-26) Creatinine 4.3 mg/dL (0.7-1.3) Estimated GFR (Cockcroft-Gault) 17.4 BUN/Creatinine Ratio 10 (6-20) Glucose Level 87 mg/dL (70-99) Calcium Level 6.8 mg/dL (8.5-10.1) Iron Level 71 ug/dL (65-175) Total Iron Binding Capacity 82 ug/dL (250-450) Iron Saturation 87 % (15-34) Ferritin 9775 ng/mL (26-388) Total Bilirubin 36.0 mg/dL (0.2-1.0) Aspartate Amino Transf (AST/SGOT) 147 U/L (15-37) Alanine Aminotransferase (ALT/SGPT) 38 U/L (16-63) Alkaline Phosphatase 135 U/L (46-116) Total Protein 5.6 g/dL (6.4-8.2) Albumin 1.2 g/dL (3.4-5.0) Albumin/Globulin Ratio 0.3 (1.0-1.7) Glucose (Fingerstick) 99 mg/dL (70-99) Micro BLOOD CULTURE Final GRAM NEGATIVE RODS, IN 1 OF 2 BOTTLES, ONE SET DRAWN. Objective Assessment GNR sepsis with hypotension, POA Leukocytosis Lactic acidosis Encephalopathy Acute renal failure, worsening Alcoholic liver disease with hyperbilirubinemia, coagulopathy and thrombocytopenia Anemia, s/p PRBCs 09/18 Plan Plan of Care Zosyn One time dose Levaquin 09/20 d/w lab michela anticipate GNR ID tomorrow Poor prognosis Remains full code Await palliative care meeting Attending Co-Sign The patient was seen and interviewed as well as examined at the bedside. The chart was reviewed. The case was discussed. Agree with the plan of care. CK OLIVARES APRN Sep 21, 2016 13:33 RADHA EDEN MD Sep 21, 2016 14:44
[2016-09-21 14:19] LABS: HEP B SURFACE ABDY Non Reactive (.)
[2016-09-21] MEDS: IV NORMAL SALINE 1000ML BAG 1,000 ML IV SCH (19:39)
[2016-09-21] MEDS ORDERED: ALBUMIN HUMAN 5% 500 ML IV ONE (23:30)
[2016-09-22] VITALS (10 sets, daily range): BP systolic 62–96; BP diastolic 44–60
[2016-09-22] MEDS: NOREPINEPHRIN PREMIX 250 ML IV PRN ×2 (00:18→04:51)
[2016-09-22] MEDS ORDERED: IV NORMAL SALINE 1000ML BAG 1,000 ML IV ONE (02:30)
[2016-09-22] MEDS ORDERED: VASOPRESSIN 40 UNIT in IV DEXTROSE 5% 100 ML IV PRN (03:30)
[2016-09-22] MEDS: PIPERACILLIN/TAZOBACTAM 2.25 GM in IV NORMAL SALINE 50ML 50 ML IV SCH (05:58)
[2016-09-22 06:14] LABS: PROTHROMBIN TIME PATIENT 99.2 SEC (11.7-14.0)
[2016-09-22 06:19] LABS: ALBUMIN 1.5 g/dL (3.4-5.0); BLOOD UREA NITROGEN 49 mg/dL (8-26); BUN/CREATININE RATIO 9 (6-20); CALCIUM 6.8 mg/dL (8.5-10.1); CHLORIDE 105 mmol/L (98-107); CREATININE 5.4 mg/dL (0.7-1.3); GFR 13.4; GLUCOSE 45 mg/dL (70-99); POTASSIUM 5.7 mmol/L (3.5-5.1); SODIUM 138 mmol/L (136-145)
[2016-09-22 06:21] LABS: INR 14.6 (0.8-1.1)
[2016-09-22 06:28] LABS: BASO # 0.1 x10^3/uL (0.0-0.2); BASO % 0 % (0-3); EOS % 0 % (0-3); HEMOGLOBIN 5.9 g/dL (13.0-17.5); LYMPH # 1.5 x10^3/uL (1.0-4.8); LYMPH % 7 % (24-48); MEAN CORPUSCULAR HEMOGLOBIN 27 pg (25-35); MEAN CORPUSCULAR HGB CONC 33 g/dL (31-37); MEAN CORPUSCULAR VOLUME 82 fL (79-100); MONO % 14 % (0-9); NEUT % 78 % (31-73); PLATELET COUNT 86 x10^3/uL (140-400); RED BLOOD COUNT 2.19 x10^6/uL (4.30-5.70); RED CELL DISTRIBUTION WIDTH 21.7 % (11.5-14.5); WHITE BLOOD COUNT 20.8 x10^3/uL (4.0-11.0)
[2016-09-22 06:38] LABS: ALK PHOS 92 U/L (46-116); ALT (SGPT) 57 U/L (16-63); AST (SGOT) 308 U/L (15-37)
[2016-09-22 06:46] LABS: ALBUMIN/GLOBULIN RATIO 0.5 (1.0-1.7); TOTAL PROTEIN 4.8 g/dL (6.4-8.2)
[2016-09-22 06:47] LABS: TOTAL BILIRUBIN 35.1 mg/dL (0.2-1.0)
[2016-09-22 06:49] LABS: ANION GAP 28 (6-14); CARBON DIOXIDE < 5 mmol/L (21-32)
[2016-09-22] MEDS ORDERED: SODIUM BICARB ADULT 8.4% 50 MEQ/50 ML DISP.SYRIN. ONE (07:52)
[2016-09-22] MEDS ORDERED: SODIUM BICARB ADULT 8.4% 50 MEQ/50 ML DISP.SYRIN. IV ONE ×2 (08:00→09:45)
[2016-09-22] MEDS: PHYTONADIONE (VIT K1) IV 5 MG in IV NORMAL SALINE 50ML 50 ML IV SCH (09:00)
[2016-09-22] MEDS: LACTULOSE 20 GM/30 ML SOLUTION. PO SCH (09:00)
[2016-09-22] MEDS ORDERED: MULTIVIT INFUSN,ADULT 4,VIT K 10 ML, THIAMINE 100 MG, FOLIC ACID 1 MG in IV NORMAL SALI... IV SCH (09:00)
[2016-09-22] MEDS: LIDOCAINE (700MG/PATCH) PATCH. TD SCH (09:00)
[2016-09-22] MEDS: rifAXIMin 550 MG TABLET PO SCH (09:00)
[2016-09-22] MEDS: LORazepam 1 MG TABLET PO SCH (09:00)
[2016-09-22] MEDS: FLUDROCORTISONE 0.1 MG TABLET PO SCH (09:00)
[2016-09-22] MEDS: IV NORMAL SALINE 1000ML BAG 1,000 ML IV SCH (09:20)
[2016-09-22] MEDS ORDERED: MORPHINE SULFATE 10 MG/ML VIAL. ONE (09:51)
--- NOTE | 2016-09-22 09:57 | PDOC ---
G I PROGRESS NOTE Subjective Appears moribund. Gasping respirations. Objective Events of last evening noted; hypotension refractory to pressors. No urine output. Physical Exam Intensely icteric Abdomen distended. Review of Relevant I have reviewed the following items luigi (where applicable) has been applied. Labs Laboratory Tests Test 09/21/16 02:29 09/21/16 06:20 09/21/16 08:00 09/22/16 05:08 Nasal Screen MRSA (PCR) Negative (Negative) White Blood Count 14.5 x10^3/uL (4.0-11.0) Red Blood Count 3.24 x10^6/uL (4.30-5.70) Hemoglobin 8.7 g/dL (13.0-17.5) Hematocrit 25.8 % (39.0-53.0) Mean Corpuscular Volume 80 fL (79-100) Mean Corpuscular Hemoglobin 27 pg (25-35) Mean Corpuscular Hemoglobin Concent 34 g/dL (31-37) Red Cell Distribution Width 20.4 % (11.5-14.5) Platelet Count 81 x10^3/uL (140-400) Neutrophils (%) (Auto) 78 % (31-73) Lymphocytes (%) (Auto) 7 % (24-48) Monocytes (%) (Auto) 15 % (0-9) Eosinophils (%) (Auto) 1 % (0-3) Basophils (%) (Auto) 1 % (0-3) Neutrophils # (Auto) 11.2 x10^3uL (1.8-7.7) Lymphocytes # (Auto) 1.0 x10^3/uL (1.0-4.8) Monocytes # (Auto) 2.1 x10^3/uL (0.0-1.1) Eosinophils # (Auto) 0.1 x10^3/uL (0.0-0.7) Basophils # (Auto) 0.1 x10^3/uL (0.0-0.2) Segmented Neutrophils % 79 % (35-66) Band Neutrophils % 1 % (0-9) Lymphocytes % 8 % (24-48) Atypical Lymphocytes % (Manual) 1 % (0-0) Monocytes % 11 % (0-10) Nucleated Red Blood Cells 4 Dohle Bodies Present Platelet Estimate Decreased (ADEQUATE) Anisocytosis Mod Target Cells Mod [place] Cells Few Prothrombin Time 56.6 SEC (11.7-14.0) 99.2 SEC (11.7-14.0) Prothromb Time International Ratio 7.1 (0.8-1.1) 14.6 (0.8-1.1) Sodium Level 133 mmol/L (136-145) 138 mmol/L (136-145) Potassium Level 4.4 mmol/L (3.5-5.1) 5.7 mmol/L (3.5-5.1) Chloride Level 101 mmol/L (98-107) 105 mmol/L (98-107) Carbon Dioxide Level 10 mmol/L (21-32) < 5 mmol/L (21-32) Anion Gap 22 (6-14) 28 (6-14) Blood Urea Nitrogen 44 mg/dL (8-26) 49 mg/dL (8-26) Creatinine 4.3 mg/dL (0.7-1.3) 5.4 mg/dL (0.7-1.3) Estimated GFR (Cockcroft-Gault) 17.4 13.4 BUN/Creatinine Ratio 10 (6-20) 9 (6-20) Glucose Level 87 mg/dL (70-99) 45 mg/dL (70-99) Calcium Level 6.8 mg/dL (8.5-10.1) 6.8 mg/dL (8.5-10.1) Iron Level 71 ug/dL (65-175) Total Iron Binding Capacity 82 ug/dL (250-450) Iron Saturation 87 % (15-34) Ferritin 9775 ng/mL (26-388) Total Bilirubin 36.0 mg/dL (0.2-1.0) 35.1 mg/dL (0.2-1.0) Aspartate Amino Transf (AST/SGOT) 147 U/L (15-37) 308 U/L (15-37) Alanine Aminotransferase (ALT/SGPT) 38 U/L (16-63) 57 U/L (16-63) Alkaline Phosphatase 135 U/L (46-116) 92 U/L (46-116) Total Protein 5.6 g/dL (6.4-8.2) 4.8 g/dL (6.4-8.2) Albumin 1.2 g/dL (3.4-5.0) 1.5 g/dL (3.4-5.0) Albumin/Globulin Ratio 0.3 (1.0-1.7) 0.5 (1.0-1.7) Glucose (Fingerstick) 99 mg/dL (70-99) Ammonia 200 mcmol/L (11-34) Test 09/22/16 05:51 White Blood Count 20.8 x10^3/uL (4.0-11.0) Red Blood Count 2.19 x10^6/uL (4.30-5.70) Hemoglobin 5.9 g/dL (13.0-17.5) Hematocrit 18.0 % (39.0-53.0) Mean Corpuscular Volume 82 fL (79-100) Mean Corpuscular Hemoglobin 27 pg (25-35) Mean Corpuscular Hemoglobin Concent 33 g/dL (31-37) Red Cell Distribution Width 21.7 % (11.5-14.5) Platelet Count 86 x10^3/uL (140-400) Neutrophils (%) (Auto) 78 % (31-73) Lymphocytes (%) (Auto) 7 % (24-48) Monocytes (%) (Auto) 14 % (0-9) Eosinophils (%) (Auto) 0 % (0-3) Basophils (%) (Auto) 0 % (0-3) Neutrophils # (Auto) 16.3 x10^3uL (1.8-7.7) Lymphocytes # (Auto) 1.5 x10^3/uL (1.0-4.8) Monocytes # (Auto) 3.0 x10^3/uL (0.0-1.1) Eosinophils # (Auto) 0.0 x10^3/uL (0.0-0.7) Basophils # (Auto) 0.1 x10^3/uL (0.0-0.2) Laboratory Tests Test 09/22/16 05:08 09/22/16 05:51 Prothrombin Time 99.2 SEC (11.7-14.0) Prothromb Time International Ratio 14.6 (0.8-1.1) Sodium Level 138 mmol/L (136-145) Potassium Level 5.7 mmol/L (3.5-5.1) Chloride Level 105 mmol/L (98-107) Carbon Dioxide Level < 5 mmol/L (21-32) Anion Gap 28 (6-14) Blood Urea Nitrogen 49 mg/dL (8-26) Creatinine 5.4 mg/dL (0.7-1.3) Estimated GFR (Cockcroft-Gault) 13.4 BUN/Creatinine Ratio 9 (6-20) Glucose Level 45 mg/dL (70-99) Calcium Level 6.8 mg/dL (8.5-10.1) Total Bilirubin 35.1 mg/dL (0.2-1.0) Aspartate Amino Transf (AST/SGOT) 308 U/L (15-37) Alanine Aminotransferase (ALT/SGPT) 57 U/L (16-63) Alkaline Phosphatase 92 U/L (46-116) Ammonia 200 mcmol/L (11-34) Total Protein 4.8 g/dL (6.4-8.2) Albumin 1.5 g/dL (3.4-5.0) Albumin/Globulin Ratio 0.5 (1.0-1.7) White Blood Count 20.8 x10^3/uL (4.0-11.0) Red Blood Count 2.19 x10^6/uL (4.30-5.70) Hemoglobin 5.9 g/dL (13.0-17.5) Hematocrit 18.0 % (39.0-53.0) Mean Corpuscular Volume 82 fL (79-100) Mean Corpuscular Hemoglobin 27 pg (25-35) Mean Corpuscular Hemoglobin Concent 33 g/dL (31-37) Red Cell Distribution Width 21.7 % (11.5-14.5) Platelet Count 86 x10^3/uL (140-400) Neutrophils (%) (Auto) 78 % (31-73) Lymphocytes (%) (Auto) 7 % (24-48) Monocytes (%) (Auto) 14 % (0-9) Eosinophils (%) (Auto) 0 % (0-3) Basophils (%) (Auto) 0 % (0-3) Neutrophils # (Auto) 16.3 x10^3uL (1.8-7.7) Lymphocytes # (Auto) 1.5 x10^3/uL (1.0-4.8) Monocytes # (Auto) 3.0 x10^3/uL (0.0-1.1) Eosinophils # (Auto) 0.0 x10^3/uL (0.0-0.7) Basophils # (Auto) 0.1 x10^3/uL (0.0-0.2) Microbiology 09/16/16 Blood Culture - Preliminary, Resulted 09/16/16 Blood Culture Result 1 (CHRISSY) - Preliminary, Resulted 09/19/16 Urine Culture - Preliminary, Resulted 09/19/16 Urine Culture Result 1 (CHRISSY) - Preliminary, Resulted Marked increase in ammonia and INR from prior determinations. Worsening renal function. Medications Current Medications Sodium Chloride 1,000 ml @ 1,000 mls/hr Q1H IV Last administered on 09/16/16 12:59; Start 09/16/16 at 12:17; Stop 09/16/16 at 13:16; Status DC Sodium Chloride (Normal Saline Flush) 10 ml QSHIFT PRN IV AFTER MEDS AND BLOOD DRAWS Last administered on 09/16/16 13:00; Start 09/16/16 at 12:30 Ondansetron HCl (Zofran) 4 mg PRN Q8HRS PRN IV NAUSEA/VOMITING; Start 09/16/16 at 15:45; Stop 09/17/16 at 15:44; Status DC Sodium Chloride 1,000 ml @ 50 mls/hr Q20H IV Last administered on 09/17/16 10 :38; Start 09/16/16 at 15:40; Stop 09/17/16 at 15:39; Status DC Acetaminophen (Tylenol) 650 mg PRN Q6HRS PRN PO FEVER Last administered on 09/18 08:33; Start 09/16/16 at 16:15 Ondansetron HCl (Zofran) 4 mg PRN Q6HRS PRN IV NAUSEA/VOMITING; Start 09/16/16 at 16:15 Morphine Sulfate 2 mg PRN Q2HR PRN IV PAIN; Start 09/16/16 at 16:15; Stop 09/17 at 12:52; Status DC Tramadol HCl (Ultram) 50 mg PRN Q6HRS PRN PO MILD - MODERATE PAIN Last administered on 09/20/16 06:22; Start 09/16/16 at 16:15 Hydralazine HCl (Apresoline) 10 mg PRN Q4HRS PRN IVP ELEVATED BP, SEE COMMENTS ; Start 09/16/16 at 16:15 Docusate Sodium (Colace) 100 mg PRN DAILY PRN PO CONSTIPATION; Start 09/16/16 at 16:15 Enoxaparin Sodium (Lovenox 40mg Syringe) 40 mg QHS SQ ; Start 09/16/16 at 21:00 ; Stop 09/16/16 at 21:00; Status DC Multivitamins 10 ml/Thiamine HCl 100 mg/Folic Acid 1 mg/Sodium Chloride 1,011.2 ml @ 100 mls/ hr DAILY IV Last administered on 09/20/16 09:54; Start at 14:00; Stop 09/20/16 at 21:00; Status DC Phytonadione (Mephyton) 10 mg DAILY PO Last administered on 09/19/16 10:09; Start 09/17/16 at 18:30; Stop 09/20/16 at 20:28; Status DC Fludrocortisone Acetate (Florinef) 0.1 mg BID PO Last administered on 10:09; Start 09/17/16 at 21:00 Potassium Chloride (Klor-Con) 40 meq 1X ONCE PO Last administered on 07:16; Start 09/18/16 at 07:00; Stop 09/18/16 at 07:01; Status DC Potassium Chloride (Klor-Con) 40 meq 1X ONCE PO Last administered on 12:04; Start 09/18/16 at 12:00; Stop 09/18/16 at 12:01; Status DC Lorazepam (Ativan) 2 mg PRN Q1HR PRN IV For CIWA 8-14 Last administered on 09/19 18:08; Start 09/18/16 at 12:30 Lorazepam (Ativan) 4 mg PRN Q1HR PRN IV For CIWA 15 or greater; Start 09/18/16 at 12:30 Lorazepam (Ativan) 1 mg BID PO Last administered on 09/19/16 10:09; Start at 12:30 Lidocaine (Lidoderm) 1 patch DAILY TD Last administered on 09/18/16 13:46; Start 09/18/16 at 13:00 Oxycodone HCl (Roxicodone) 5 mg PRN Q6HRS PRN PO SEVERE PAIN; Start 09/18/16 at 13:00 Phytonadione (Vitamin K) 10 mg 1X ONCE SQ Last administered on 09/18/16 18:20 ; Start 09/18/16 at 15:45; Stop 09/18/16 at 15:46; Status DC Lactulose 20 gm DAILY PO Last administered on 09/19/16 10:10; Start 09/18/16 at 21:00 Sodium Chloride 500 ml @ 500 mls/hr 1X ONCE IV Last administered on 04:26; Start 09/19/16 at 04:30; Stop 09/19/16 at 05:29; Status DC Piperacillin Sod/ Tazobactam Sod (Zosyn Per Pharmacy) 1 each PRN DAILY PRN MC SEE COMMENTS; Start 09/19/16 at 11:30 Sodium Chloride 1,000 ml @ 150 mls/hr 1X ONCE IV Last administered on 12:06; Start 09/19/16 at 11:45; Stop 09/19/16 at 18:24; Status DC Piperacillin Sod/ Tazobactam Sod 2.25 gm/Sodium Chloride 50 ml @ 100 mls/hr Q6HRS IV Last administered on 09/20/16 13:53; Start 09/19/16 at 12:00; Stop at 18:34; Status DC Multivitamins (Thera M Plus) 1 tab DAILY PO ; Start 09/21/16 at 09:00; Stop at 02:07; Status DC Folic Acid (Folic Acid) 1 mg DAILY PO ; Start 09/21/16 at 09:00; Stop 09/22/16 at 02:07; Status DC Thiamine Mononitrate (Vitamin B-1) 100 mg DAILY PO ; Start 09/21/16 at 09:00; Stop 09/22/16 at 02:08; Status DC Sodium Chloride 1,000 ml @ 1,000 mls/hr 1X ONCE IV Last administered on 08:51; Start 09/20/16 at 08:30; Stop 09/20/16 at 09:29; Status DC Rifaximin (Xifaxan) 550 mg Q12HR PO ; Start 09/20/16 at 10:00 Sodium Chloride 1,000 ml @ 1,000 mls/hr 1X ONCE IV Last administered on 15:30; Start 09/20/16 at 15:30; Stop 09/20/16 at 16:29; Status DC Piperacillin Sod/ Tazobactam Sod 2.25 gm/Sodium Chloride 50 ml @ 100 mls/hr Q8HRS IV Last administered on 09/22/16 05:58; Start 09/20/16 at 22:00 Levofloxacin/ Dextrose 50 ml @ 50 mls/hr 1X ONCE IV Last administered on 19:48; Start 09/20/16 at 19:00; Stop 09/20/16 at 19:59; Status DC Norepinephrine Bitartrate 250 ml @ As Directed STK-MED ONCE IV ; Start at 19:00; Stop 09/20/16 at 19:01; Status DC Norepinephrine Bitartrate 250 ml @ 0 mls/hr CONT PRN IV SEE I/O RECORD Last administered on 09/22/16 04:51; Start 09/20/16 at 20:15 Phytonadione 5 mg/ Sodium Chloride 50.5 ml @ 102 mls/hr DAILY IV Last administered on 09/21/16 09:40; Start 09/21/16 at 09:00 Lidocaine/Sodium Bicarbonate (Buffered Lidocaine 1%) 3 ml 1X ONCE IJ ; Start at 08:45; Stop 09/21/16 at 08:50; Status DC Heparin Sodium/ Sodium Chloride 60 unit 1X ONCE IV ; Start 09/21/16 at 08:45; Stop 09/21/16 at 08:50; Status DC Sodium Chloride 1,000 ml @ 75 mls/hr [id number] IV Last administered on 19:39; Start 09/21/16 at 20:00 Albumin Human 500 ml @ 125 mls/hr 1X ONCE IV Last administered on 09/21/16 23:01; Start 09/21/16 at 23:30; Stop 09/22/16 at 03:29; Status DC Sodium Chloride 1,000 ml @ 500 mls/hr 1X ONCE IV Last administered on 02:11; Start 09/22/16 at 02:30; Stop 09/22/16 at 04:29; Status DC Multivitamins 10 ml/Thiamine HCl 100 mg/Folic Acid 1 mg/Sodium Chloride 1,011.2 ml @ 100 mls/ hr DAILY IV ; Start 09/22/16 at 09:00 Vasopressin 40 unit/Dextrose 102 ml @ 6 mls/hr CONT PRN IV SEE I/O RECORD Last administered on 09/22/16 03:29; Start 09/22/16 at 03:30 Dopamine HCl/ Dextrose 250 ml @ As Directed STK-MED ONCE IV ; Start 09/22/16 at 07:42; Stop 09/22/16 at 07:43; Status DC Dopamine HCl/ Dextrose 250 ml @ 14.139 mls/ hr CONT PRN IV SEE I/O RECORD Last administered on 09/22/16 07:50; Start 09/22/16 at 08:00 Sodium Bicarbonate 100 meq 1X ONCE IV Last administered on 09/22/16 07:55; Start 09/22/16 at 08:00; Stop 09/22/16 at 08:01; Status DC Sodium Bicarbonate 50 meq STK-MED ONCE .ROUTE ; Start 09/22/16 at 07:52; Stop at 07:53; Status DC Epinephrine HCl 4 mg/Sodium Chloride 254 ml @ 0 mls/hr CONT PRN IV SEE I/O RECORD Last administered on 09/22/16 09:05; Start 09/22/16 at 08:45 Sodium Bicarbonate 100 meq 1X ONCE IV Last administered on 09/22/16 09:37; Start 09/22/16 at 09:45; Stop 09/22/16 at 09:46; Status DC Morphine Sulfate 10 mg 1X ONCE IV ; Start 09/22/16 at 10:00; Stop 09/22/16 at 10:00; Status DC Morphine Sulfate 10 mg STK-MED ONCE .ROUTE ; Start 09/22/16 at 09:51; Stop 09/22 at 09:52; Status DC Active Scripts Active Reported No Known Medications Prior To Admisstion (Info) Each 1 Each Vitals/I & O Vital Sign - Last 24 Hours 09/21/16 09/21/16 09/21/16 09/21/16 10:00 10:15 10:30 10:45 Pulse 96 94 98 94 Resp 20 22 18 18 B/P (MAP) 90/51 (64) 91/53 (66) 93/57 (69) 87/55 (66) Pulse Ox 97 97 97 97 O2 Delivery Room Air Room Air Room Air Room Air 09/21/16 09/21/16 09/21/16 09/21/16 11:00 11:15 11:30 11:45 Pulse 96 100 100 96 Resp 20 20 22 24 B/P (MAP) 92/59 (70) 96/63 (74) 90/55 (67) 90/57 (68) Pulse Ox 97 97 97 97 O2 Delivery Room Air Room Air Room Air Room Air 09/21/16 09/21/16 09/21/16 09/21/16 12:00 12:00 12:15 12:30 Temp 98.7 98.7 Pulse 98 102 100 Resp 22 20 22 B/P (MAP) 92/56 (68) 99/59 (72) 99/56 (70) Pulse Ox 97 96 96 O2 Delivery Room Air Room Air Room Air Room Air 09/21/16 09/21/16 09/21/16 09/21/16 12:45 13:00 13:15 13:30 Pulse 100 100 100 94 Resp 18 18 26 22 B/P (MAP) 100/59 (73) 97/58 (71) 100/62 (75) 75/50 (58) Pulse Ox 96 96 96 95 O2 Delivery Room Air Room Air Room Air Room Air 09/21/16 09/21/16 09/21/16 09/21/16 13:45 14:00 14:15 14:30 Pulse 102 106 100 102 Resp 24 29 28 24 B/P (MAP) 94/68 (77) 82/50 (61) 90/60 (70) 87/54 (65) Pulse Ox 96 96 97 97 O2 Delivery Room Air Room Air Room Air Room Air 09/21/16 09/21/16 09/21/16 09/21/16 14:45 15:00 15:15 15:30 Pulse 96 98 100 98 Resp 24 26 21 25 B/P (MAP) 89/53 (65) 93/53 (66) 93/56 (68) 86/48 (61) Pulse Ox 97 96 96 97 O2 Delivery Room Air Room Air Room Air Room Air 09/21/16 09/21/16 09/21/1624/17 15:45 15:57 16:00 16:15 Pulse 102 100 102 Resp 27 B/P (MAP) 92/63 (73) 85/53 (64) 85/54 (64) Pulse Ox 96 96 96 O2 Delivery Room Air Room Air Room Air Room Air 09/21/16 09/21/16 09/21/16 09/21/16 16:30 16:45 17:00 17:15 Pulse 96 98 102 104 Resp 25 B/P (MAP) 93/52 (66) 92/55 (67) 94/57 (69) 94/57 (69) Pulse Ox 97 97 97 96 O2 Delivery Room Air Room Air Room Air Room Air 09/21/16 09/21/16 09/21/16 09/21/16 17:30 17:45 18:00 18:15 Pulse 98 96 96 102 Resp B/P (MAP) 84/52 (63) 93/54 (67) 76/47 (57) 85/54 (64) Pulse Ox 97 97 98 97 O2 Delivery Room Air Room Air Room Air Room Air 09/21/16 09/21/16 09/21/16 09/21/16 19:00 19:45 20:00 20:00 Temp 97.7 97.7 Pulse 98 98 101 Resp B/P (MAP) 92/55 (67) 83/49 (60) 100/51 (67) Pulse Ox 95 95 97 O2 Delivery Room Air Room Air Room Air Room Air 09/21/16 09/21/16 09/21/16 09/21/16 21:00 21:15 21:30 21:45 Pulse 97 97 103 102 Resp 20 21 21 21 B/P (MAP) 97/53 (68) 93/54 (67) 102/53 (69) 108/57 (74) Pulse Ox 98 97 97 97 O2 Delivery Room Air Room Air Room Air Room Air 09/21/16 09/21/16 09/21/16 09/21/16 22:00 22:30 23:00 23:59 Temp 97.8 97.8 Pulse 101 104 100 105 Resp 21 22 23 B/P (MAP) 110/63 (79) 103/58 (73) 96/58 (71) 98/55 (69) Pulse Ox 98 96 97 97 O2 Delivery Room Air Room Air Room Air Room Air 09/21/16 09/22/16 09/22/16 09/22/16 23:59 01:00 02:00 02:28 Pulse 102 104 104 Resp 25 25 23 B/P (MAP) 85/44 (58) 93/45 (61) 93/60 (71) Pulse Ox 97 97 97 O2 Delivery Room Air Room Air Room Air Room Air 09/22/16 09/22/16 09/22/16 09/22/16 03:00 03:45 04:00 04:00 Temp 97.5 97.5 Pulse 104 101 101 Resp 32 32 34 B/P (MAP) 93/46 (62) 86/46 (59) 96/56 (69) Pulse Ox 97 96 97 O2 Delivery Room Air Room Air Room Air Room Air 09/22/16 09/22/16 09/22/16 09/22/16 05:00 06:00 08:28 08:40 Temp 96.4 96.2 96.4 96.2 Pulse 100 89 108 98 Resp 30 29 22 23 B/P (MAP) 92/53 (66) 96/56 (69) 62/53 Pulse Ox 98 97 O2 Delivery Room Air Room Air 09/22/16 08:56 Temp 96.0 96.0 Pulse 92 Resp 27 Intake and Output 09/21/16 09/21/16 09/22/16 14:59 22:59 06:59 Intake Total 150 ml 2707 ml Output Total 5 ml 5 ml Balance 145 ml 2702 ml Problem List Problems Medical Problems: (1) Anemia Status: Acute (2) Dehydration Status: Acute (3) Hyperbilirubinemia Status: Acute (4) Liver failure Status: Acute (5) Neuropathy Status: Acute Assessment Progressive liver failure. Family has decided for comfort measures. Plan of Care Note Agree situation futile and comfort measures appropriate. SUDHAKAR HORNER MD Sep 22, 2016 09:57
[2016-09-22] MEDS ORDERED: MORPHINE SULFATE 10 MG/ML VIAL. IV ONE (10:00)
[2016-09-22] MEDS ORDERED: MORPHINE SULFATE 2 MG/ML DISP.SYRIN. IV PRN (10:00)
[2016-09-22] MEDS ORDERED: MORPHINE SULFATE 2 MG/ML DISP.SYRIN. IM ONE (10:00)
[2016-09-22] MEDS ORDERED: MORPHINE SULFATE 10 MG/ML VIAL. IM ONE (10:00)
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
== END 2016-09-22 10:05 | disposition expired | DRG 871 ==
LOC: ER 12:02 → 5 NORTH 17:40 → 1 WEST ICU 09-20 19:12
PROVIDERS: ADMIT Internal Medicine; ATTEND Internal Medicine
PROC: 30233N1 Transfusion of Nonautologous Red Blood Cells into Peripheral Vein, Percutaneous Approach (ICD-10-PCS; 2016-09-18)
PROC: 02H633Z Insertion of Infusion Device into Right Atrium, Percutaneous Approach (ICD-10-PCS; principal; 2016-09-21)
DX: A41.50 Gram-negative sepsis, unspecified (principal); E43 Unspecified severe protein-calorie malnutrition; G93.41 Metabolic encephalopathy; R65.21 Severe sepsis with septic shock; N17.0 Acute kidney failure with tubular necrosis; E87.1 Hypo-osmolality and hyponatremia; D68.4 Acquired coagulation factor deficiency; R62.7 Adult failure to thrive; K70.31 Alcoholic cirrhosis of liver with ascites; D50.9 Iron deficiency anemia, unspecified; E86.0 Dehydration; E87.6 Hypokalemia; F10.20 Alcohol dependence, uncomplicated; F17.210 Nicotine dependence, cigarettes, uncomplicated; F31.9 Bipolar disorder, unspecified; G62.9 Polyneuropathy, unspecified; K70.11 Alcoholic hepatitis with ascites; K70.40 Alcoholic hepatic failure without coma; K76.0 Fatty (change of) liver, not elsewhere classified; N18.3 Chronic kidney disease, stage 3 (moderate); R33.9 Retention of urine, unspecified; D69.6 Thrombocytopenia, unspecified; E80.6 Other disorders of bilirubin metabolism; I95.89 Other hypotension; K42.9 Umbilical hernia without obstruction or gangrene; Z68.23 Body mass index [BMI] 23.0-23.9, adult; Z80.1 Family history of malignant neoplasm of trachea, bronchus and lung; Z82.49 Family history of ischemic heart disease and other diseases of the circulatory system; Z85.118 Personal history of other malignant neoplasm of bronchus and lung; Z90.49 Acquired absence of other specified parts of digestive tract
CPT/HCPCS: 36415; 36556; 51701; 70450; 71010; 76700; 76770; 76937; 80048; 80053; 80076; 81001; 82105; 82140; 82390; 82525; 82553; 82728; 82962; 83540; 83550; 83605; 83690; 83735; 83880; 84443; 84484; 85007; 85027; 85610; 86706; 86803; 86850; 86900; 86901; 86920; 87040; 87086; 87205; 87340; 87341; 87641; 93005; 96360; C1892; G0480; G0481; J0171; J1265; J1956; J2060; J2270; J2543; J3430; J3490; J7030; J7040; J7050; P9016; P9045; 99285-25